=== PATIENT | male | born 1970 | race Caucasian/White ===

== ENCOUNTER 2017-11-13 19:05 | Emergency (ER) | payer MEDICAID, SELFPAY ==
[2017-11-13 19:06] VITALS: BP 142/105; PULSE 108; RESP 18; TEMP 37; O2SAT 95; BMI 28.8
--- NOTE | 2017-11-13 20:05 | US_ITS ---
STUDY: SCROTUM ULTRASOUND REASON FOR EXAM: Male, 47 years old. Right testicular pain TECHNIQUE: Ultrasound evaluation of the scrotum was performed with color Doppler and static wilson-scale imaging. COMPARISON: None. FINDINGS: RIGHT TESTICLE INTRATESTICULAR: There is a normal size of the right testicle. The right testicle measures 4.3 x 2.7 x 2.3 cm. There is a homogenous echotexture. There is normal arterial and normal venous vascularity. There is no demonstrated right testicular mass or cyst. EXTRATESTICULAR: The epididymis is normal in size. The epididymis head measures 1.2 cm. There is increased (hyperemic) vascularity of the epididymis. There is a well-defined cystic structure within the epididymis, without internal echoes, consistent with an epididymal cyst. There is a moderate size hydrocele. There is no demonstrated varicocele. There is no demonstrated extratesticular mass or cyst. LEFT TESTICLE INTRATESTICULAR: There is a normal size of the left testicle. The left testicle measures 3.8 x 2.6 x 2.3 cm. There is a homogenous echotexture. There is normal arterial and normal venous vascularity. There is no demonstrated left testicular mass or cyst. EXTRATESTICULAR: The epididymis is normal in size. The epididymis head measures 1.3 cm. There is normal vascularity of the epididymis. There is no demonstrated epididymal cystic structure. There is no demonstrated hydrocele. There is no demonstrated varicocele. There is no demonstrated extratesticular mass or cyst. US/Testicular with Arterial Flow IMPRESSION: No testicular mass or torsion. Moderate right hydrocele. Right epididymitis. Right epididymal head cyst. Left epididymal head cyst. Electronically Signed: Franck Rodriguez DO at 21:12 EST , Service support ,
[2017-11-13] MEDS: Ketorolac 60 MG/2 ML Vial IM (20:19)
[2017-11-13 20:34] LABS: Bacteria 0 SEEN /hpf (None Seen); Mucous, Urine 0 SEEN /hpf (<or=2+); Red Blood Cells-Urine 0 SEEN /hpf (0-5)
[2017-11-13 20:40] LABS: Color, Urine Yellow (Yellow); Glucose, Dipstick Normal (Normal); Ketone-Dipstick Negative (Negative); Leukocyte Esterase-Dipstick 25 /ul (Negative); Nitrite-Dipstick Negative (Negative); Occult Blood-Urine Negative /ul (Negative); Protein-Dipstick Negative (Negative); Urine Bilirubin Dipstick Negative (Negative); Urine Clarity Sl. Cloudy (Clear); Urine Urobilinogen 4 mg/dl (Normal)
[2017-11-13 20:49] LABS: Squamous Epithelial Cells - UA 0-5 SEEN /hpf (0-5); White Blood Cells 0-5 SEEN /hpf (0-5)
--- NOTE | 2017-11-13 21:43 | ED.VISSUMM ---
- ER Visit Summary Date of Service: 11/13/17 Chief Complaint: [Right testicle pain and swelling] History of Present Illness: The patient is a 47 M [presents to the emergency department with complaint of pain and swelling in his right testicle ?2 days. Patient denies any fever. Patient denies any dysuria. Patient denies any trauma.] Patient has not had similar episodes in the past. Physical Examination: [HEENT-PERRLA, EOMI. Cranial nerves II through XII grossly intact. TMs clear. Mucous membranes moist. No adenopathy. Cardiovascular-regular rate and rhythm without murmur or ectopy Lungs-clear to auscultation, chest wall stable without crepitus or subcu emphysema Abdomen-normoactive bowel sounds, soft, nontender, no rebound or rigidity, no peritoneal signs. exam-patient does have tenderness over the right epididymis. Patient does have swelling of the epididymis and suspect hydrocele. No cellulitis noted. Testicle itself is nontender. Extremities-intact ?4, normal range of motion, normal pulses, atraumatic] Test Results: [Urinalysis was normal. Ultrasound of the testicle obtained showed a right-sided hydrocele as well as right-sided epididymitis and epididymal cysts of the right and left epididymis.] Emergency Department Course and Treatment: She was medicated with Toradol, morphine, Cipro. [] Treatment Plan: [Patient will be started on Cipro and [place] for pain as well as naproxen. Patient will be referred to urology life science taxonomist.] Disposition: [Discharged to home in stable condition] Impression: [Epididymitis Right-sided hydrocele] This note was generated with [employer] dictation software. It may contain incorrect words, spelling, and punctuation that were not noted in review of the chart prior to signing ED Disposition - Plan for ED Patient: Chief Complaint: Male Pain/Injury Referrals: Abhijeet Cesar MD [Primary Care Provider] -
--- NOTE | 2017-11-13 21:45 | ED.DEP ---
ED Disposition - Plan for ED Patient: Chief Complaint: Male Pain/Injury Instructions: ED Epididymitis, ED Hydrocele Type Not Specified Prescriptions: Hydrocodone Bitart/Apap 5-325 [[place] 5/325] 1 - 2 tab PO Q4H PRN PRN 5 Days #20 tab PRN Reason: Pain Naproxen [Naprosyn] 500 mg PO BID PRN #20 tab Ciprofloxacin [Cipro] 500 mg PO BID #20 tab Referrals: Abhijeet Cesar MD [Primary Care Provider] - Fabian Lopez MD [STAFF PHYSICIAN] - 5-7 Days
--- NOTE | 2017-11-13 21:48 | DCINST.ED_ITS ---
ED Disposition - Plan for ED Patient: Chief Complaint: Male Pain/Injury Instructions: ED Epididymitis, ED Hydrocele Type Not Specified Prescriptions: Hydrocodone Bitart/Apap 5-325 [[place] 5/325] 1 - 2 tab PO Q4H PRN PRN 5 Days #20 tab PRN Reason: Pain Naproxen [Naprosyn] 500 mg PO BID PRN #20 tab Ciprofloxacin [Cipro] 500 mg PO BID #20 tab Referrals: Abhijeet Cesar MD [Primary Care Provider] - Fabian Lopez MD [STAFF PHYSICIAN] - 5-7 Days
[2017-11-13 22:01] VITALS: BP 139/93; PULSE 96; PULSE 97; RESP 18; O2SAT 96
[2017-11-13] MEDS: Ciprofloxacin 500 MG Tablet PO (22:04)
== END 2017-11-13 22:06 | disposition home or self-care (01) ==
PROVIDERS: Emergency Provider Emergency Medicine; Family Provider Internal Medicine; PCP Internal Medicine
DX: N45.1 Epididymitis (principal); N43.3 Hydrocele, unspecified; N50.3 Cyst of epididymis; Z72.0 Tobacco use; Z79.51 Long term (current) use of inhaled steroids
CPT/HCPCS: 76870; 81001; 93976; 96372; 99283

== ENCOUNTER 2018-03-05 22:01 | Emergency (ER) | payer MEDICAID, SELFPAY ==
[2018-03-05 22:03] VITALS: BP 124/69; PULSE 111; RESP 18; TEMP 37.1; O2SAT 97; BMI 29.1
--- NOTE | 2018-03-05 22:30 | ED.DCSUM_ITS ---
- ER Visit Summary Date of Service: 03/05/18 Chief Complaint: [Absess] History of Present Illness: The patient is a 47 M [resents the emergency department with multiple boils. 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 He works as a [employer] and has had multiple ibarra in his skin on the forearms he has small boils that are sore with no surrounding cellulitis. No fevers or chills. Tetanus is up-to-date. He is otherwise healthy. He is allergic to Bactrim.] Physical Examination: [] WN WD NAD PERRL EOMI MMM NECK supple and nontender, no masses RRR no murmur rub or gallop, no peripheral edema, symmetric radial pulses CTAB no respiratory distress ABDOMEN is soft and nontender, normal bowel sounds, no distension, no rebound or guarding SKIN small centimeter fluctuant mass on right neck with no surrounding cellulitis with superficial on palpation, small firm tender nodule on left chest with no surrounding cellulitis, small firm tender nodule on left anterior forearm with no surrounding cellulitis, multiple healing scab wounds on the upper extremities without evidence of superinfection Alert and Oriented x3, CN II-XII in tact, no motor or sensory deficits, gait normal No lymphadenopathy Test Results: [] Emergency Department Course and Treatment: [Wound culture was obtained. She was given doxycycline tetanus was updated. He will be given chlorhexidine skin wash and Bactroban for home. Is given precautions for which to return and encouraged to follow-up with the primary doctor] Procedure Note: Incision and drainage right neck boil And was cleansed with Betadine Skin anesthetized with 1 cc of lidocaine locally Incision made with 11 blade Purulence and blood Irrigated Bandage and wound care instructions given Incision and drainage left anterior chest boil skin cleansed with Betadine Skin anesthetized with 1 cc of lidocaine locally Stab incision made with 11 blade with bloody but no purulent return wound irrigated bandage applied Incision and drainage of left forearm boil Skin cleansed with Betadine Then anesthetized with 1 cc of lidocaine locally Stab incision made with an 11 blade Blood and purulent return Wound irrigated Treatment Plan: [] Disposition: [Discharge] Impression: Multiple boils] This note was generated with [employer] software. It may contain incorrect words, spelling, and punctuation that were not noted in review of the chart prior to signing ED Disposition - Plan for ED Patient: Chief Complaint: Abscess Referrals: Abhijeet Cesar MD [Primary Care Provider] -
[2018-03-05] MEDS: Doxycycline 100 MG CAPSULE PO (22:34)
--- NOTE | 2018-03-05 22:54 | ED.DEP ---
ED Disposition - Plan for ED Patient: Chief Complaint: Abscess Instructions: ED Abscess IandD Prescriptions: Chlorhexidine Gluconate [Antiseptic Skin Cleanser] 237 ml TP QWEEK #1 bottle Doxycycline Hyclate 100 mg PO BID #20 tablet Mupirocin [Bactroban] 1 applic TOPICAL TID 10 Days #1 tube Referrals: Abhijeet Cesar MD [Primary Care Provider] - 5-7 Days
[2018-03-05] MEDS: Diphth,Pertuss(Acell),Tet Vac 0.5 ML Vial IM (23:10)
[2018-03-05] MEDS: HYDROcodone Bitartrate/Apap 5/325 Tablet PO (23:10)
[2018-03-05 23:15] VITALS: PULSE 88; RESP 18
--- NOTE | 2018-03-09 20:15 | ED.RN ---
PT CALLED TO CHECK ON STATUS OF WOUND, DR. VO AWARE OF CULTURE REPORT, NO ANSWER WHEN CALLED.
== END 2018-03-05 23:43 | disposition home or self-care (01) ==
LOC: ED 22:49
PROVIDERS: Emergency Provider Emergency Medicine; Family Provider Internal Medicine; PCP Internal Medicine
DX: L02.12 Furuncle of neck (principal); L02.223 Furuncle of chest wall; L02.424 Furuncle of left upper limb; B96.89 Other specified bacterial agents as the cause of diseases classified elsewhere; Z86.14 Personal history of Methicillin resistant Staphylococcus aureus infection; Z72.0 Tobacco use
CPT/HCPCS: 10060; 87070; 87077; 87186; 87205; 90715; 99282

== ENCOUNTER 2018-04-29 02:22 | Emergency (ER) | payer MEDICAID, SELFPAY ==
[2018-04-29 02:23] VITALS: BP 127/72; PULSE 93; RESP 16; TEMP 36.4; O2SAT 95; BMI 29.7
--- NOTE | 2018-04-29 02:44 | ED.DCSUM_ITS ---
- ER Visit Summary Date of Service: 04/29/18 Chief Complaint: [] Stated 3 days ago he accidentally burned his little toe with grease from work. It splashed into his shoe. He does not want this to be Worker's Comp. He wanted to make sure that it was okay and not infected. History of Present Illness: The patient is a 47 M [] Physical Examination: [] Vital signs reviewed General: Well-nourished well-developed Head: Normocephalic atraumatic Eyes: Pupils equal round and reactive to light extraocular movements intact ENT: TMs clear no hemotympanum no trauma Neck: Nontender full range of motion Cardiovascular: Regular rate rhythm no murmurs normal S1-S2 Respiratory: No distress clear to auscultation bilaterally chest nontender Abdomen: Soft nontender nondistended normal bowel sounds no masses Back: Nontender no CVA tenderness Extremities: Top part of the left little toe has a superficial burn. It looks like it blistered and then opened and the skin is now gone. There is no infection. It is healing now by secondary intention Neuro alert oriented cranial nerves II through XII intact normal strength sensation reflexes Test Results: [] Emergency Department Course and Treatment: [] Patient's been using Bactroban ointment and will continue this. His wound was dressed. He was given a postop shoe. He will be given a short course of [place] for the pain. He will follow- up as an outpatient Treatment Plan: [] Disposition: [] Impression: [] Left little toe second-degree burn This note was generated with [employer] dictation software. It may contain incorrect words, spelling, and punctuation that were not noted in review of the chart prior to signing ED Disposition - Plan for ED Patient: Chief Complaint: Burn Referrals: Abhijeet Cesar MD [Primary Care Provider] -
[2018-04-29 03:03] VITALS: PULSE 91; RESP 20; O2SAT 99
--- NOTE | 2018-04-29 03:03 | ED.RN ---
THIS NURSE REVIEWED D/C INSTRUCTIONS WITH PT. PT VERBALIZED UNDERSTANDING OF INSTRUCTIONS. PT DENIES FURTHER NEEDS OR QUESTIONS AT THIS TIME. PT AMBULATES FROM ROOM ON OWN WITHOUT ASSISTANCE FROM STAFF
== END 2018-04-29 03:06 | disposition home or self-care (01) ==
PROVIDERS: Emergency Provider Emergency Medicine; Family Provider Internal Medicine; PCP Internal Medicine
DX: T25.232A Burn of second degree of left toe(s) (nail), initial encounter (principal); J45.909 Unspecified asthma, uncomplicated; Z79.51 Long term (current) use of inhaled steroids; X10.1XXA Contact with hot food, initial encounter; Y93.89 Activity, other specified; Y92.89 Other specified places as the place of occurrence of the external cause; Y99.0 Civilian activity done for income or pay
CPT/HCPCS: 99283

== ENCOUNTER 2019-06-24 17:42 | Emergency (ER) | payer OTHER, SELFPAY ==
[2019-06-24 17:42] VITALS: BMI 28.8
[2019-06-24 17:43] VITALS: BP 137/95; PULSE 110; RESP 18; TEMP 36.7; O2SAT 99; BMI 29.5
--- NOTE | 2019-06-24 18:00 | ED.DCSUM_ITS ---
History of Present Illness Chief Complaint: Burn Informant: Patient Onset: Today Mechanism/Context: Burn Quality of Pain: Aching, Burning, Throbbing Current Severity: Mild Maximum Severity: Severe Worsened by: If he removes from ice water Relieved by: Improves with ice water Associated Symptoms: Parasthesias. Negative for: Weakness, Loss of function, Inability to ambulate Narrative: Patient is a 48-year-old vcudc-ijny-xgyoisym male who presents with burn to his right hand and fingers. He immersed his hand accidentally in a bathtub hot grease, 360 ?F. He is a smoker. He denies history of peripheral arterial disease or diabetes. Tetanus Immunization: Unknown Prior similar symptoms: No Recent Illness/Hospitalization: No - Past Medical History (1) Nonspecific colitis Status: Acute (2) Esophageal reflux Status: Chronic (3) Asthma Status: Chronic Past Medical History - Allergies and Home Meds Allergies/Adverse Reactions: Allergies NUTS Allergy (Uncoded 07/01/18 08:33) Shortness of breath SEAFOOD Allergy (Uncoded 07/01/18 08:33) Shortness of breath Primary Care Physician: Umair Luciano MD [STAFF PHYSICIAN] - Prior records reviewed: Yes Surgical History: noncontributory, tonsillectomy Lives: Alone Smoking Status: Current every day smoker Alcohol: Rare Drugs: None - Family History Maternal Family History: Family History (Last Updated 07/01/18 @ 08:36 by Danielle Medrano) Father Prostate cancer Mother Asthma Grandmother Skin cancer Grandfather Colon cancer Family History: Reports: No pertinent history Paternal Family History: Family History (Last Updated 07/01/18 @ 08:36 by Danielle Medrano) Father Prostate cancer Mother Asthma Grandmother Skin cancer Grandfather Colon cancer Family History: Reports: No pertinent history Review of Systems General: Denies: Chills, Fever, Malaise, Sweats Cardiovascular: Denies: Chest pain, Palpitations Respiratory: Denies: Dyspnea, Cough, Dyspnea on exertion Musculoskeletal: Reports: Swelling, Extremity Pain. Denies: Myalgias, Arthralgias, Neck pain, Back pain, -, - Skin: Reports: Rash, Wounds, - - Differential burn left hand fingers and thumb Neurological: Reports: Parasthesia. Denies: Numbness Hematologic: Denies: Easy bruising, Easy bleeding Allergy: Denies: Uticaria, Swelling of the mouth Physical Exam Vital Signs/Narrative: Vital Signs Temp Pulse Resp BP Pulse Ox 06/24/19 17:43 98.1 F 110 H 18 137/95 H 99 Inital Vital Signs reviewed: Yes General: Well nourished, Well developed Head: Normocephalic, Atraumatic Eyes: Perrl, EOMI. Negative for: Pale conjunctiva, Scleral icterus, - Neck: Nontender, Full ROM Cardiovascular: Regular rate, Regular rhythm, No murmurs, Normal S1, Normal S2 Respiratory: No distress, CTA bilaterally, Chest nontender Skin: Normal color, Rash - Burn left thumb, all fingers and hand circumferential Neurological: Cranial nerves II-XII grossly intact, Normal Strength Psychological: Normal affect, Normal Mood - Glascow Coma Scale Eye Opening: Spontaneous Motor: Obeys Commands Verbal: Oriented Coma Scale Total: 15 Diagnostic/Tx/Re-eval - Medical Decision Making Patient with circumferential burn of his left hand and thumb and all fingers. Since this is a circumferential burn [facility] burn unit was contacted. Spoke with the intake nurse. She agrees patient needs seen. He will be transferred from ER to the burn unit. Tetanus was updated. He was medicated with pain medicine. Patient drove himself to the emerge department. He states his spouse and he has no one that can drive him. He was asked to contact coworker or someone to drive him to [facility] since he received opiate analgesia. He is being transported by private vehicle since the closest ambulance is 2.5 hours. And there is a patient that is more critically ill that needs to be transported before he does. ED Disposition - Plan for ED Patient: Disposition: [facility] Diagnosis: Burn of multiple fingers of left hand not including thumb Referrals: Umair Luciano MD [STAFF PHYSICIAN] -
[2019-06-24] MEDS: oxyCODONE 5 MG Tablet PO (18:12)
[2019-06-24] MEDS: Naproxen 500 MG Tablet PO (18:12)
[2019-06-24 18:35] VITALS: BP 155/91; PULSE 107; RESP 18; TEMP 36.7
== END 2019-06-24 18:45 | disposition designated cancer center or children's hospital (05) ==
PROVIDERS: Emergency Provider Emergency Medicine
DX: T23.061A Burn of unspecified degree of back of right hand, initial encounter (principal); T23.051A Burn of unspecified degree of right palm, initial encounter; T23.041A Burn of unspecified degree of multiple right fingers (nail), including thumb, initial encounter; Z23 Encounter for immunization; K21.9 Gastro-esophageal reflux disease without esophagitis; J45.909 Unspecified asthma, uncomplicated; X10.2XXA Contact with fats and cooking oils, initial encounter
CPT/HCPCS: 99283

== ENCOUNTER 2019-10-21 19:43 | Emergency (ER) | payer OTHER, SELFPAY ==
[2019-10-21 19:43] VITALS: BP 142/86; PULSE 103; RESP 18; TEMP 36.8; O2SAT 96; BMI 29.5
[2019-10-21 20:06] VITALS: O2SAT 94
--- NOTE | 2019-10-21 20:29 | ED.VISSUMM ---
- ER Visit Summary Date of Service: 10/21/19 Chief Complaint: Asthma exacerbation History of Present Illness: The patient is a 49 M who presents with an asthma exacerbation that began today. Patient states is a history of asthma but has been out of his medications for couple weeks. Patient states he recently changed jobs and changed insurance companies and is now able to see his primary care physician. Patient has not been able to get appointment with his primary care physician yet. Patient states that tonight while he was at work he became more short of breath and had more wheezing. Patient admits to a cough with some clear sputum. Patient admits to some rhinorrhea. Patient denies any fevers or chills. Patient denies any chest pain. Physical Examination: Vital signs are stable. Patient is afebrile. Patient is in no acute distress. Oral mucosa is pink and moist. Neck is supple. Trachea is midline. There is no JVD. It was regular rate and rhythm. Lungs showed diffuse expiratory wheezing. There is good respiratory effort noted. Abdomen is soft nontender. Cranial nerves II through XII are intact. There are no focal motor or sensory deficits noted. Extremities are intact. There is no calf tenderness or edema. Emergency Department Course and Treatment: Patient was given a DuoNeb aerosol here. Patient was given a prescription for albuterol inhaler as well as albuterol aerosols. Patient was instructed to follow-up with his primary care physician in 5 to 7 days. Patient understood and was agreeable with the plan. All questions were answered. Disposition: Discharge home Impression: Asthma exacerbation This note was generated with [employer] dictation software. It may contain incorrect words, spelling, and punctuation that were not noted in review of the chart prior to signing ED Disposition - Plan for ED Patient: Disposition: Home or Assisted Living Diagnosis: Asthma Instructions: ASTHMA, Acute (Adult) Prescriptions: Albuterol Aerosols [Ventolin Aerosols] 2.5 mg INHALATION Q4H PRN #25 vial Prescription Printed Albuterol Inhaler [Ventolin Hfa] 2 puff INHALATION Q4H PRN PRN #1 inhaler PRN Reason: Wheezing Prescription Printed Referrals: Care Physician,No Primary [Primary Care Provider] - Additional Instructions: Follow-up with your primary care physician in 3 to 5 days.
[2019-10-21 20:35] VITALS: PULSE 101; RESP 14
[2019-10-21] MEDS: Ipratropium/Albuterol Sulfate 3 ML AMPUL.NEB INHALATION (20:35)
[2019-10-21 20:47] VITALS: PULSE 101; RESP 16; O2SAT 95
== END 2019-10-21 20:53 | disposition home or self-care (01) ==
PROVIDERS: Emergency Provider Emergency Medicine
DX: J45.901 Unspecified asthma with (acute) exacerbation (principal); Z87.891 Personal history of nicotine dependence
CPT/HCPCS: 94640; 99282

== ENCOUNTER 2020-08-28 14:38 | Observation (INO) | payer BC, SELFPAY ==
[2020-08-28] VITALS (7 sets, daily range): BP systolic 117–126; BP diastolic 60–78; PULSE 84–103; RESP 14–20; TEMP 36.6–37.1; O2SAT 95–98; BMI 29.9; BMI 29.8; BMI 30.3
--- NOTE | 2020-08-28 14:49 | RAD_ITS ---
STUDY: X-RAY CHEST REASON FOR EXAM: Male, 49 years old. CHEST PAINS AND PRESSURE MEDIASTINUM PER PATIENT. TECHNIQUE: AP COMPARISON: 09/08/2017 FINDINGS: EKG leads project over the chest. The lungs are clear and expanded. There is no demonstrated pleural abnormality. Normal size heart. Normal mediastinum and tashi. Normal visualized pulmonary arteries. Normal visualized aortic arch and descending thoracic aorta. Normal visualized thoracic spine. Normal visualized ribs, clavicles, and shoulders. There is no demonstrated abnormality of the visualized soft tissue structures of the upper abdomen. RAD/Chest 1 View (Portable) IMPRESSION: Stable, nonacute portable x-ray examination of the chest. Electronically Signed: Tao Martinez MD ([place]) at 15:25 EST , Service support ,
--- NOTE | 2020-08-28 14:49 | EKG12_ITS ---
Test Reason : Blood Pressure : / mmHG Vent. Rate : 085 BPM Atrial Rate : 085 BPM P-R Int : 138 ms QRS Dur : 076 ms QT Int : 326 ms P-R-T Axes : 029 -24 029 degrees QTc Int : 387 ms Normal sinus rhythm Normal ECG When compared with ECG of 08-SEP-2017 11:19, No significant change was found Confirmed by PETER BRITO, MAYO ([id number]), assignment desk editor TOM QUINTEROS ([id number]) on 08/30/2020 9:34:16 AM Referred By: MICHELLE Confirmed By:MAYO GREEN MD
[2020-08-28 14:57] LABS: Absolute Lymphocyte Count 2.48 X10^3/uL (0.83-4.51); Absolute Neutrophil Count 8.5 X10^3/uL (2.0-7.7); Basophil# 0.05 X10^3/uL; Basophil% 0.4 % (0-1); Eosinophil# 0.23 X10^3/uL; Eosinophils% 1.9 % (0-5); Hematocrit 45.7 % (40-54); Hemoglobin 15.2 g/dL (13.0-16.5); Lymphocyte # 2.48 X10^3/ul (4.0); Lymphocyte % 20.5 % (19-41); Mean Corp Hgb Conc 33.3 g/dL (32-36); Mean Corpuscular Hgb 31.3 pg (27.0-32.0); Mean Corpuscular Volume 94.2 fL (80-94); Mean Platelet Vol. 8.5 fl (6.2-12.0); Monocyte# 0.72 X10^3/uL; Monocyte% 5.9 % (0-10); NRBC Flagged by Analyzer 0 % (0-5); Neutrophil # 8.51 X10^3/uL (2.7-7.7); Neutrophil % 70.3 % (47-70); Platelet Count 352 K/mm3 (150-450); RBC Distribution Width SD 45.4 fl (35.1-43.9); Red Blood Count 4.85 M/mm3 (4.6-6.2); White Blood Count 12.1 K/mm3 (4.4-11.0)
[2020-08-28 15:13] LABS: Prothrombin Time (Protime)PT. 12.5 SECONDS (11.7-14.9)
[2020-08-28 15:14] LABS: Anion Gap 6 (5-15); BUN 9 mg/dL (7-18); BUN/Creat Ratio 8.7 RATIO (10-20); Calcium,Total 8.4 mg/dL (8.5-10.1); Chloride 106 mmol/L (98-107); Creatinine, Serum 1.04 mg/dL (0.70-1.30); EST Glomerular Filtration Rate 80 mL/min (>60); Est Glom Filt Rate - Afr Amer 97 mL/min (>60); Estimated Creatinine Clearance 85.92 ml/min; Glucose 161 mg/dL (74-106); Potassium 3.4 mmol/L (3.5-5.1); Sodium Level 139 mmol/L (136-145)
--- NOTE | 2020-08-28 15:26 | ED.VISSUMM ---
- ER Visit Summary Date of Service: 08/28/20 Chief Complaint: Lower sternal chest pain History of Present Illness: The patient is a 49 M past medical history of asthma and prior pancreatitis. States he had a negative stress test several years ago. Never had a heart catheterization. Patient states that chest pain for the last 4 days or so. Denies any known cardiac history his father reportedly had CT around age 38. Patient is a smoker smokes 1 to 1/2 packs of cigarettes a day. States the last several days he is at a weight on his lower sternum. Its been there most of the time but does seem to come and go. He said he was having sex today with his and it got worse he broke out in a sweat get short of breath. He is never had a DVT or PE. He he did recently at the end of July drive to and from [place]. He denies any calf pain or swelling. He denies any pleuritic nature of pain. No hemoptysis. Patient states he also uses erectile dysfunction meds used them in the last 24 hours he is not a candidate at this time for nitroglycerin. Physical Examination: Middle-aged male vital signs stable afebrile. Pulse ox 98% on room air no signs of hypoxia. H EENT exam unremarkable. Neck nontender no JVD. No lymphadenopathy. Lungs few scattered expiratory wheezes no rales or rhonchi. Equal symmetrical. Heart regular rhythm no murmur rate about 100. Chest wall completely nontender. Pains in the lower sternal region lower chest region is completely nonreproducible. There is no signs of trauma. Abdomen soft nontender normal bowel sounds no peritoneal signs. Both the epigastric and right upper quadrant completely nontender. Normal bowel sounds. Extremities moves all 4. Calves are nontender without edema or cords. Neurologically is awake and alert with no focal motor deficits. Test Results: Patient undergo cardiac work-up. Portable 1 view chest x-ray interpreted by myself shows no acute abnormality. Normal cardiac silhouette mediastinum. Unremarkable lung mcpherson. No infiltrates. EKG sinus tachycardia rate of 104 with no acute signs of CT or ischemia. CBC white count 12.1 hemoglobin 15 no bands chemistries unremarkable normal creatinine and gap PT/INR 12 and 1. Troponin normal. D-dimer normal. Lipase elevated at 1,438 consistent with acute pancreatitis. Emergency Department Course and Treatment: Lower sternal nonreproducible chest pain. Risk factors due to family history, his age and smoking history. No undergo cardiac work-up. Receive aspirin. Also consider pancreatitis with drink is less likely it is not reproducible. Consider PE due to his recent travel but clinically does not sound like a PE. I offered the patient something for pain the hospitalist when the patient received Mylanta. Treatment Plan: Repeat exam patient is doing well. I spoken to the hospitalist is down to evaluate the patient for admission. Disposition: Admission Impression: Acute lower sternal chest pain uncertain etiology Acute pancreatitis History of smoking This note was generated with [email or web address] dictation software. It may contain incorrect words, spelling, and punctuation that were not noted in review of the chart prior to signing ED Disposition - Plan for ED Patient: Referrals: NOT,DEFINED [NON-STAFF] -
[2020-08-28 15:45] LABS: D-Dimer Quantitative (DVT/PE) 0.31 FEU/ug/m (0.27-0.49)
[2020-08-28 15:49] LABS: Lipase 1438 U/L (73-393)
[2020-08-28] MEDS: Aspirin 325 MG Tablet PO (15:55)
[2020-08-28] MEDS: Mag Hydrox/Al Hydrox/Simeth 30 ML UDC PO (16:11)
--- NOTE | 2020-08-28 17:03 | HP.PCM_ITS ---
Problem List (1) Atypical chest pain Status: Acute (2) Acute pancreatitis Status: Acute (3) Nonspecific colitis Status: Acute (4) History of MRSA infection Status: Chronic (5) Esophageal reflux Status: Chronic (6) Asthma Status: Chronic History of Present Illness Date of Admission: 08/28/20 Chief Complaint: Chest pressure ongoing for 3 days The patient is a 49 year old M with no coronary artery disease but with history of asthma came to ED with chest pressure ongoing for 3 days. Patient states this chest pressure gets worse on walking up stairs or exertion. It was 4-6/10 intensity but got worse after he had sex with his girlfriend that brought him to the ER. He said he was short of breath, dressed with sweats but no dizzy or lightheaded. He describes chest pressure, heaviness 10/10 intensity localized in midsternal without radiation, numbness tingling in arm or fingers. In ED work-up, patient found mild leukocytosis 12.1 thousand, neutrophils 70%, K3.4, glucose 161, calcium 8.4 and serum lipase 1438. Patient was prior admi tted in October 2014 for C. difficile colitis. Twelve-lead EKG done in the ER shows sinus tachycardia at 104 bpm with LAD. First troponin negative. Denies any previous history of gallstone, cholecy stitis or pancreatitis. Patient is not a heavy alcohol drinker and admittedly last drank about a bottle of beer on last . Past Medical History Past Medical History (Chronic Problems): Chronic Problems (Last Reviewed 07/01/18 @ 08:35 by Danielle Medrano) History of MRSA infection (Chronic) Esophageal reflux (Chronic) Asthma (Chronic) Medical History: Medical History (Last Reviewed 07/01/18 @ 08:35 by Danielle Medrano) Asthma J45.909 Allergies NUTS Allergy (Uncoded 08/28/20 14:45) Angioedema SEAFOOD Allergy (Uncoded 08/28/20 14:45) Angioedema Home Medications: Ambulatory Orders Medication Instructions Recorded Albuterol Aerosols [Ventolin 2.5 mg INHALATION Q4H PRN #25 vial 10/21/19 Aerosols] Albuterol Inhaler [Ventolin Hfa] 2 puff INHALATION Q4H PRN PRN #1 10/21/19 inhaler Surgical History: noncontributory, tonsillectomy Smoking Status: Current every day smoker Tobacco Use: Cigarettes - *Family History Maternal Family History: Family History (Last Updated 07/01/18 @ 08:36 by Danielle Medrano) Father Prostate cancer Mother Asthma Grandmother Skin cancer Grandfather Colon cancer History Items: No pertinent history Paternal Family History: Family History (Last Updated 07/01/18 @ 08:36 by Danielle Medrano) Father Prostate cancer Mother Asthma Grandmother Skin cancer Grandfather Colon cancer History Items: No pertinent history, - - Her mother had brain aneurysm and she of it Review of Systems Constitutional: Reports: Malaise, Weakness, Fatigue. Denies: Chills, Fever HEENT: Denies: Head Aches, Sinus Congestion, Sinus Drainage Cardiovascular: Reports: Chest Pressure, Chest Tightness. Denies: Chest Pain, Palpitations Respiratory: Denies: Cough, Shortness of breath at rest, Sputum production Gastrointestinal: Reports: Abdominal Pain, Nausea, Vomiting, - - Patient is nauseated and had little, small amount vomiting, gastric content. Genitourinary: Denies: Dysuria, Frequency Musculoskeletal: Denies: Joint Pain, Joint Tenderness Skin: Denies: Rash, Wounds Neurological: Denies: Balance problems, Focal weakness, Numbness, Tingling Psychiatric: Reports: Anxiety. Denies: Depression, Homicidal Ideations, Suicidal Ideations Hematologic/ Lymphatic: Denies: Easy Bruising, Easy Bleeding VTE Information - Inpt Only VTE Present on Admission: No VTE Mechan Device Prophylaxis: None VTE Pharm Prophylaxis ordered?: Yes Patient Problems: Active and Suspected Problems (Last Reviewed 07/01/18 @ 08:35 by Danielle Medrano) Atypical chest pain (Acute) Acute pancreatitis (Acute) Nonspecific colitis (Acute) Objective: Physical exam General: Alert, Oriented x3, Cooperative HEENT: Atraumatic, PERRLA, EOMI, Normocephalic Oral: No Gingival or Mucosal Lesions/ Ulcerations Neck: Supple, No JVD, Negative Carotid Bruits Lungs: Air entry diminished in bilateral lung bases. No crepitation/rhonchi Cardiovascular: Regular rate, Regular Rhythm, Normal S1, Normal S2, No murmurs Abdomen: Soft, mild tenderness in epigastrium. Liver not enlarged. Spleen not palpable. Nondistended bowel Sounds Present. : No renal angle tenderness. No suprapubic tenderness. Extremities: No edema, Capillary Refill Less than 3 Seconds Skin: No rashes, No breakdown Musculoskeletal: No Tenderness to Palpation of Joints or Extremities Neurological: Cranial nerves II-XII grossly intact, Deep Tendon Reflexes 2+/4 and Symmetrical, Neuro grossly intact Psych/Mental Status: Normal Affect, Appropriate. - Physical Exam Vitals/I&O's: Vital Signs Temp Pulse Resp BP Pulse Ox 98.1 F 99 14 117/76 96 08/28/20 16:11 08/28/20 16:11 08/28/20 16:11 08/28/20 16:11 08/28/20 16:11 Oxygen Delivery Method Room Air Weight: 206 lb 2.115 oz Body Mass Index (BMI) 29.9 Laboratory Results 08/28/20 14:43: WBC 12.1 H, RBC 4.85, Hgb 15.2, Hct 45.7, MCV 94.2 H, MCH 31.3, MCHC 33.3, RDW Std Deviation 45.4 H, RDW Coeff of Sumit 13.0, Plt Count 352, MPV 8.5, Immature Gran % (Auto) 1.000 H, Neut % (Auto) 70.3 H, Lymph % (Auto) 20.5, [place] % (Auto) 5.9, Eos % (Auto) 1.9, Baso % (Auto) 0.4, Absolute Neuts (auto) 8.5 H, Absolute Lymphs (auto) 2.48, Nucleated RBC % 0 08/28/20 14:43: PT 12.5, INR 1.0 08/28/20 14:43: Sodium 139, Potassium 3.4 L, Chloride 106, Carbon Dioxide 27.0, Anion Gap 6, BUN 9, Creatinine 1.04, Estim Creat Clear Calc 85.92, Est GFR (MDRD) Af Amer 97, Est GFR (MDRD) Non-Af 80, BUN/Creatinine Ratio 8.7 L, Glucose 161 H, Calcium 8.4 L, Troponin I < 0.015 08/28/20 14:43: D-Dimer Quant (PE/DVT) 0.31 08/28/20 14:43: Lipase 1438 H Assessment/Plan All Active Problems (Last Reviewed 07/01/18 @ 08:35 by Danielle Zimmerly) Atypical chest pain (Acute) Acute pancreatitis (Acute) Nonspecific colitis (Acute) The patient is a 49 year old M with no coronary artery disease but with history of asthma came to ED with chest pressure ongoing for 3 days. Patient serum lipase elevated. 1. Atypical presentation of acute pancreatitis with chest pressure: Patient is being admitted in PCU. IV fluid Ringer lactate at 200 mL/h. Monitor intake and output. Liver enzymes ordered. Right upper quadrant sonogram tomorrow a.m. Protonix 40 mg IV every 12 hourly. 2. Chest pressure with suspicion of unstable angina: Patient states chest pain worsening with exertion and sex. Serial troponin enzymes. 2D echo tomorrow a.m. Repeat EKG. His brother and sister has cardiac murmur. Nitrate is contraindicated as the patient took PDE inhibitor today. 3. Asthma, chronic stable asthma: Patient on albuterol inhaler at home. DuoNeb every 4 hourly as needed for shortness of breath. 4. Hyperglycemia: Patient does not carry diagnosis of diabetes mellitus. A1c tomorrow a.m. glucose 161 in BMP. 5 other comorbidities: GERD, ED on PDE 5 inhibitor, mild obesity: Home medication reconciliation done. VTE prophylaxis: On Lovenox 40 mg daily Clinical Impression(s) from Imaging Studies Chest X-Ray 08/28/20 14:49 IMPRESSION: Stable, nonacute portable x-ray examination of the chest. Laboratory Results 08/28/20 14:43: WBC 12.1 H, RBC 4.85, Hgb 15.2, Hct 45.7, MCV 94.2 H, MCH 31.3, MCHC 33.3, RDW Std Deviation 45.4 H, RDW Coeff of Sumit 13.0, Plt Count 352, MPV 8.5, Immature Gran % (Auto) 1.000 H, Neut % (Auto) 70.3 H, Lymph % (Auto) 20.5, [place] % (Auto) 5.9, Eos % (Auto) 1.9, Baso % (Auto) 0.4, Absolute Neuts (auto) 8.5 H, Absolute Lymphs (auto) 2.48, Nucleated RBC % 0 08/28/20 14:43: PT 12.5, INR 1.0 08/28/20 14:43: Sodium 139, Potassium 3.4 L, Chloride 106, Carbon Dioxide 27.0, Anion Gap 6, BUN 9, Creatinine 1.04, Estim Creat Clear Calc 85.92, Est GFR (MDRD) Af Amer 97, Est GFR (MDRD) Non-Af 80, BUN/Creatinine Ratio 8.7 L, Glucose 161 H, Calcium 8.4 L, Troponin I < 0.015 08/28/20 14:43: D-Dimer Quant (PE/DVT) 0.31 08/28/20 14:43: Lipase 1438 H 08/28/20 14:43: Total Bilirubin Pending, Direct Bilirubin Pending, AST Pending, ALT Pending, Alkaline Phosphatase Pending, Total Protein Pending, Albumin Pending 08/28/20 14:43: Magnesium Pending Inpatient E&M: [id number] Init Hosp L3
--- NOTE | 2020-08-28 17:13 | EKG12_ITS ---
Test Reason : CP Blood Pressure : / mmHG Vent. Rate : 104 BPM Atrial Rate : 104 BPM P-R Int : 140 ms QRS Dur : 072 ms QT Int : 310 ms P-R-T Axes : 061 -44 042 degrees QTc Int : 407 ms Sinus tachycardia Left axis deviation Abnormal ECG Confirmed by PETER BRITO, MAYO ([id number]), news videotape editor SURAJ CLEMONS ([id number]) on 08/31/2020 10:34:31 AM Referred By: BON/BONNY Confirmed By:MAYO GREEN MD
[2020-08-28] MEDS: Lactated Ringers 1,000 ML 200 ML IV ×2 (17:34→23:48)
[2020-08-28 17:40] LABS: Magnesium 1.7 mg/dL (1.6-2.6)
[2020-08-28 17:57] LABS: AST(SGOT) 16 U/L (15-37); Alanine Aminotransfer ALT/SGPT 26 U/L (16-61); Albumin, Serum 3.4 g/dL (3.2-5.0); Alkaline Phosphatase 82 U/L (45-117); Bilirubin, Direct 0.15 mg/dL (0.00-0.30); Protein, Total 6.4 g/dL (6.4-8.2)
[2020-08-28] MEDS: Morphine 2 MG/ML Syringe IV ×2 (18:53→23:05)
[2020-08-28] MEDS: Enoxaparin 40 MG/0.4 ML Syringe SC (18:53)
[2020-08-28] MEDS: HYDROmorphone 1 MG/ML Syringe IV (20:29)
[2020-08-28] MEDS: Potassium Chloride 10mEq/100mL 10 MEQ/100 ML IV.SOLN. 100 MEQ IV BOLUS ×2 (20:37→21:44)
[2020-08-29] VITALS (8 sets, daily range): BP systolic 113–140; BP diastolic 62–82; PULSE 76–86; RESP 14–18; TEMP 36.6–36.7; O2SAT 92–98
[2020-08-29] MEDS: HYDROmorphone 1 MG/ML Syringe IV ×4 (01:02→21:39)
[2020-08-29] MEDS: 0.9% Saline Lock 10 ML Syringe IV ×5 (01:02→21:39)
[2020-08-29] MEDS: Morphine 2 MG/ML Syringe IV ×2 (04:25→09:36)
[2020-08-29] MEDS: Acetaminophen 325 MG Tablet 650 MG PO ×2 (04:25→17:13)
[2020-08-29] MEDS: Lactated Ringers 1,000 ML 200 ML IV (04:28)
[2020-08-29 05:32] LABS: Absolute Lymphocyte Count 3.56 X10^3/uL (0.83-4.51); Absolute Neutrophil Count 5.5 X10^3/uL (2.0-7.7); Basophil# 0.04 X10^3/uL; Basophil% 0.4 % (0-1); Eosinophil# 0.34 X10^3/uL; Eosinophils% 3.4 % (0-5); Hematocrit 41.2 % (40-54); Hemoglobin 13.4 g/dL (13.0-16.5); Lymphocyte # 3.56 X10^3/ul (4.0); Lymphocyte % 35.3 % (19-41); Mean Corp Hgb Conc 32.5 g/dL (32-36); Mean Corpuscular Hgb 30.9 pg (27.0-32.0); Mean Corpuscular Volume 95.2 fL (80-94); Mean Platelet Vol. 8.8 fl (6.2-12.0); Monocyte# 0.62 X10^3/uL; Monocyte% 6.2 % (0-10); NRBC Flagged by Analyzer 0 % (0-5); Neutrophil # 5.45 X10^3/uL (2.7-7.7); Platelet Count 300 K/mm3 (150-450); RBC Distribution Width CV 13.1 % (11.6-14.6); Red Blood Count 4.33 M/mm3 (4.6-6.2); White Blood Count 10.1 K/mm3 (4.4-11.0)
--- NOTE | 2020-08-29 05:55 | US_ITS ---
STUDY: ABDOMINAL ULTRASOUND - RIGHT UPPER QUADRANT REASON FOR VISIT: Male, 49 years old CHEST PAIN- PANCREATITIS TECHNIQUE: Ultrasound evaluation of the right upper quadrant was performed with real-time and static wilson-scale imaging. TECHNICAL QUALITY: Adequate. COMPARISON: None. FINDINGS: Liver: The liver measures 20 cm. There is increased echogenicity of the liver. The bile ducts are within normal limits. There is hepatic color flow. The direction of portal flow is hepatopetal. There is no demonstrated mass lesion. Gallbladder: Normal distended gallbladder. The gallbladder wall measures 2.9 mm. There is a negative sonographic Busby''s sign. There is no pericholecystic fluid. There are no gallstones. Common Bile Duct (C.B.D.): The common bile duct measures 6 mm. Pancreas: There is increased echogenicity of the pancreas. There is no demonstrated pancreatic mass or cyst. Right Kidney: Normal size of the right kidney. The right kidney measures 10.9 x 4.6 x 5.0 cm. Normal renal cortex. The right cortex measures 1.2 cm. There is no demonstrated renal mass or cyst. There is no right hydronephrosis. US/Abdomen Limited IMPRESSION: 1. No gallstones, cholecystitis or biliary obstruction. 2. Hepatomegaly with increased echogenicity of the liver suggesting hepatic steatosis. 3. Fatty replacement of the pancreas. Electronically Signed: Tao Martinez MD (Brooks) at 8:52 EST , Service support ,
--- NOTE | 2020-08-29 05:55 | ECHOD_ITS ---
Reason For Study: CHEST PRESSURE Procedure This was a 2D Doppler, Color Flow transthoracic echocardiogram. Exam performed portable in patient room. Left Ventricle Normal LV size. Left ventricular systolic function is normal. The estimated ejection fraction is 55 %. Normal diastology for age. No regional wall motion abnormalities noted. Aortic Valve Trisinus/trileaflet aortic valve. Mild (1+) aortic valve insufficiency. Pulmonic Valve Normal pulmonic valve. Trivial pulmonic valve insufficiency. Great Vessels Normal aortic root. The pulmonary artery is normal size. Normal inferior vena cava. Pericardium/Pleural No pericardial effusion. MMode/2D Measurements & Calculations LVIDd: 4.6 cm IVSd: 0.86 cm Ao root diam: 2.8 cm LVIDs: 3.3 cm LVPWd: 0.78 cm RVDd: 3.8 cm FS: 29.0 % LAV(MOD-bp): 38.3 ml SV(MOD-sp4): 51.0 ml LVAd ap4: 31.8 cm2 LAV(MOD-bp) Indexed: 18.5 ml/m2 EDV(MOD-sp4): 91.0 ml LAV(MOD-sp2): 30.4 ml EDV(sp4-el): 94.2 ml LAV(MOD-sp4): 40.8 ml LVAs ap4: 18.6 cm2 ESV(MOD-sp4): 40.0 ml ESV(sp4-el): 39.1 ml EF(MOD-sp4): 56.1 % EF(sp4-el): 58.5 % SV(sp4-el): 55.1 ml LA A4 area: 16.5 cm2 LA dimension(2D): 3.8 cm RA A4 area: 12.5 cm2 Time Measurements MV dec time: 0.23 sec Doppler Measurements & Calculations MV E max parrish: 84.2 cm/sec Lat Peak E' Parrish: 13.0 cm/sec Med Peak E' Parrish: 10.8 cm/sec MV A max parrish: 71.4 cm/sec E/E' lat: 6.5 E/E' med: 7.8 MV E/A: 1.2 Ao V2 max: 152.0 cm/sec AI max parrish: 368.4 cm/sec LV V1 max: 120.7 cm/sec Ao max P.2 mmHg AI max P.3 mmHg LV V1 max P.8 mmHg AI dec slope: 216.2 cm/sec2 AI P1/2t: 499.1 msec PA V2 max: 118.7 cm/sec Interpretation Summary Normal LV size. Left ventricular systolic function is normal. The estimated ejection fraction is 55 %. Normal diastology for age. Mild (1+) aortic valve insufficiency. Ordering Physician: Pedro Bailey Referring Physician: MALENA GONSALVES Performed By: Ashley Harris RDCS
[2020-08-29 06:04] LABS: AST(SGOT) 12 U/L (15-37); Alanine Aminotransfer ALT/SGPT 22 U/L (16-61); Albumin, Serum 2.8 g/dL (3.2-5.0); Alkaline Phosphatase 67 U/L (45-117); Anion Gap 4 (5-15); BUN 7 mg/dL (7-18); BUN/Creat Ratio 8.8 RATIO (10-20); Bilirubin, Direct 0.18 mg/dL (0.00-0.30); Calcium,Total 8.1 mg/dL (8.5-10.1); Chloride 107 mmol/L (98-107); Cholesterol 146 mg/dL (200); EST Glomerular Filtration Rate 109 mL/min (>60); Est Glom Filt Rate - Afr Amer 132 mL/min (>60); Globulin 2.9 g/dL (2.2-4.2); Glucose 97 mg/dL (74-106); High Density Lipoprotein 30 mg/dL; Potassium 3.7 mmol/L (3.5-5.1); Protein, Total 5.7 g/dL (6.4-8.2); Sodium Level 138 mmol/L (136-145); Thyroid Stim Hormone (TSH) 6.17 uIU/mL (0.358-3.74); Triglycerides 144 mg/dL; Very Low Density Lipoprotein 29 mg/dL (5-40)
[2020-08-29 08:04] LABS: T4 Free Direct 1.11 ng/dL (0.76-1.46)
[2020-08-29] MEDS: Aspirin E.C. 81 MG Tablet PO (09:23)
[2020-08-29] MEDS: Enoxaparin 40 MG/0.4 ML Syringe SC (09:23)
--- NOTE | 2020-08-29 10:58 | PCM.PN.HOSP ---
Patient Problems: Active and Suspected Problems (Last Reviewed 07/01/18 @ 08:35 by Danielle Medrano) Atypical chest pain (Acute) Acute pancreatitis (Acute) Nonspecific colitis (Acute) Reason for Visit: Follow-up for chest pressure and acute pancreatitis Objective: Patient is still complaining of chest pressure patient is still complaining of chest pressure and is demanding morphine and Dilaudid every 2 hours. Location of pain lower sternal. Denies right upper quadrant abdominal pain. No back pain. Physical exam General: Alert, Oriented x3, Cooperative HEENT: Atraumatic, PERRLA, EOMI, Normocephalic Oral: No Gingival or Mucosal Lesions/ Ulcerations Neck: Supple, No JVD, Negative Carotid Bruits Lungs: Air entry diminished in bilateral lung bases. No crepitation/rhonchi Cardiovascular: Regular rate, Regular Rhythm, Normal S1, Normal S2, early diastolic murmur over aortic area. Abdomen: No epigastric or right upper quadrant tenderness. Bowel Sounds Present, Soft, Non-Distended. No palpable mass : No renal angle tenderness. No suprapubic tenderness. Extremities: No edema, Capillary Refill Less than 3 Seconds Skin: No rashes, No breakdown Musculoskeletal: No Tenderness to Palpation of Joints or Extremities Neurological: Cranial nerves II-XII grossly intact, Deep Tendon Reflexes 2+/4 and Symmetrical, Neuro grossly intact Psych/Mental Status: Normal Affect, Appropriate. Vitals/I&O's: Vital Signs Temp Pulse Resp BP Pulse Ox 97.8 F 76 14 113/64 98 08/29/20 09:27 08/29/20 09:27 08/29/20 09:27 08/29/20 09:27 08/29/20 09:27 Oxygen Delivery Method Room Air Weight: 201 lb 15.095 oz Body Mass Index (BMI) 29.8 Intake and Output for Last 24 Hours 08/27/20 08/28/20 08/29/20 23:59 23:59 23:59 Intake Total 1310 / 1310 1623.33 / 1623.33 Output Total 900 / 900 Balance 1310 / 860 723.33 / 723.33 Laboratory Results 08/28/20 14:43: WBC 12.1 H, RBC 4.85, Hgb 15.2, Hct 45.7, MCV 94.2 H, MCH 31.3, MCHC 33.3, RDW Std Deviation 45.4 H, RDW Coeff of Sumit 13.0, Plt Count 352, MPV 8.5, Immature Gran % (Auto) 1.000 H, Neut % (Auto) 70.3 H, Lymph % (Auto) 20.5, [place] % (Auto) 5.9, Eos % (Auto) 1.9, Baso % (Auto) 0.4, Absolute Neuts (auto) 8.5 H, Absolute Lymphs (auto) 2.48, Nucleated RBC % 0 08/28/20 14:43: PT 12.5, INR 1.0 08/28/20 14:43: Sodium 139, Potassium 3.4 L, Chloride 106, Carbon Dioxide 27.0, Anion Gap 6, BUN 9, Creatinine 1.04, Estim Creat Clear Calc 85.92, Est GFR (MDRD) Af Amer 97, Est GFR (MDRD) Non-Af 80, BUN/Creatinine Ratio 8.7 L, Glucose 161 H, Calcium 8.4 L, Troponin I < 0.015 08/28/20 14:43: D-Dimer Quant (PE/DVT) 0.31 08/28/20 14:43: Lipase 1438 H 08/28/20 14:43: Total Bilirubin 0.50, Direct Bilirubin 0.15, AST 16, ALT 26, Alkaline Phosphatase 82, Total Protein 6.4, Albumin 3.4, Globulin 3.0 08/28/20 14:43: Magnesium 1.7 08/28/20 18:02: Troponin I < 0.015 08/28/20 20:13: Troponin I < 0.015 08/29/20 04:50: WBC 10.1, RBC 4.33 L, Hgb 13.4, Hct 41.2, MCV 95.2 H, MCH 30.9, MCHC 32.5, RDW Std Deviation 46.0 H, RDW Coeff of Sumit 13.1, Plt Count 300, MPV 8.8, Immature Gran % (Auto) 0.700, Neut % (Auto) 54.0, Lymph % (Auto) 35.3, [place] % (Auto) 6.2, Eos % (Auto) 3.4, Baso % (Auto) 0.4, Absolute Neuts (auto) 5.5, Absolute Lymphs (auto) 3.56, Nucleated RBC % 0 08/29/20 04:50: Sodium 138, Potassium 3.7, Chloride 107, Carbon Dioxide 27.0, Anion Gap 4 L, BUN 7, Creatinine 0.80, Estim Creat Clear Calc 111.70, Est GFR (MDRD) Af Amer 132, Est GFR (MDRD) Non-Af 109, BUN/Creatinine Ratio 8.8 L, Glucose 97, Calcium 8.1 L, Total Bilirubin 0.60, Direct Bilirubin 0.18, AST 12 L, ALT 22, Alkaline Phosphatase 67, Total Protein 5.7 L, Albumin 2.8 L, Globulin 2.9, Triglycerides 144, Cholesterol 146, LDL Cholesterol 87, VLDL Cholesterol 29, HDL Cholesterol 30 L, TSH 6.17 H 08/29/20 04:50: Free T4 1.11 Current Medications Acetaminophen (Acetaminophen 325 Mg Tablet) 650 mg PO Q6H PRN PRN PRN Reason: Pain Score 1-10/Temp > 100.7 F Last Admin: 08/29/20 04:25 Dose: 650 mg Documented by: Al Hydroxide/Mg Hydroxide (Mag Hydrox/Al Hydrox/Simeth 30 Ml Udc) 30 ml PO Q6H PRN PRN PRN Reason: Gastric Burning Albuterol Sulfate (Albuterol 2.5 Mg/3 Ml Vial.Neb.) 2.5 mg INHALATION Q2H PRN PRN PRN Reason: SOB/Wheezing Aspirin (Aspirin E.C. 81 Mg Tablet) 81 mg PO DAILY@0800 [facility] Last Admin: 08/29/20 09:23 Dose: 81 mg Documented by: Enoxaparin Sodium (Enoxaparin 40 Mg/0.4 Ml Syringe) 40 mg SC DAILY [facility] Last Admin: 08/29/20 09:23 Dose: 40 mg Documented by: Hydromorphone HCl (Hydromorphone 1 Mg/Ml Syringe) 1 mg IV Q4H PRN PRN PRN Reason: Pain Score 6-10 Last Admin: 08/29/20 06:01 Dose: 1 mg Documented by: Pantoprazole Sodium 40 mg/ (Sodium Chloride) 110 mls @ 330 mls/hr IV Q12 [facility] Last Admin: 08/29/20 09:22 Dose: 330 mls/hr Documented by: Sodium Chloride () 250 mls @ 15 mls/hr IV .[id number] PRN PRN Reason: Saline Flush Sodium Chloride () 250 mls @ 15 mls/hr IV .[id number] PRN PRN Reason: Additional IVPB Infusion Morphine Sulfate (Morphine 2 Mg/Ml Syringe) 2 mg IV Q3H PRN PRN PRN Reason: Pain Score 4-5 Last Admin: 08/29/20 09:36 Dose: 2 mg Documented by: Nicotine (Nicotine 21 Mg Patch) 21 mg TRANSDERM. DAILY RU Last Admin: 08/29/20 09:24 Dose: 21 mg Documented by: Ondansetron HCl (Ondansetron 4 Mg/2 Ml Vial) 4 mg IV Q8H PRN PRN PRN Reason: NAUSEA/VOMITING Prochlorperazine Edisylate (Prochlorperazine 10 Mg/2 Ml Vial) 5 mg IV Q4H PRN PRN PRN Reason: Breakthrough Nausea/Vomiting Sodium Chloride (0.9% Saline Lock 10 Ml Syringe) 10 - 40 ml IV UD PRN PRN Reason: SALINE FLUSH Last Admin: 08/29/20 09:36 Dose: 20 ml Documented by: STROKE Vital Signs/Narrative: Vital Signs Temp Pulse Resp BP Pulse Ox 08/29/20 09:27 97.8 F 76 14 113/64 98 08/29/20 07:13 85 Medical Necessity - Tobacco Use Smoking Status: Current every day smoker Tobacco Use: Cigarettes Assessment/Plan All Active Problems (Last Reviewed 07/01/18 @ 08:35 by Danielle Medrano) Atypical chest pain (Acute) Acute pancreatitis (Acute) Nonspecific colitis (Acute) The patient is a 49 year old M with no coronary artery disease but with history of asthma came to ED with chest pressure ongoing for 3 days. Patient serum lipase elevated. 1. Atypical presentation of acute pancreatitis with chest pressure: Patient is being admitted in PCU. IV fluid Ringer lactate at 200 mL/h. Monitor intake and output. Liver enzymes ordered. Right upper quadrant sonogram tomorrow a.m. Protonix 40 mg IV every 12 hourly. 08/29: Patient is still complaining of pain but feels very hungry and demanding food. Serum lipase repeat normal. K3.7. Liver enzymes are normal except albumin 2.8. Serum triglyceride 144, LDL 87. TSH 6.17 elevated but free T4 normal possible euthyroid sick syndrome. Repeat thyroid test after 6 weeks. Started on clear liquid and advance as per patient tolerated. 2. Chest pressure with suspicion of unstable angina: Patient states chest pain worsening with exertion and sex. Repeat EKG. His brother and sister has cardiac murmur. Nitrate is contraindicated as the patient took PDE inhibitor today. 08/29: 2D echo was done. No wall motion abnormality. Treadmill myocardial nuclear perfusion test tomorrow a.m. Serial troponin enzymes negative. Repeat twelve-lead EKG was negative for ischemia. Interpretation Summary Normal LV size. Left ventricular systolic function is normal. The estimated ejection fraction is 55 %. Normal diastology for age. Mild (1+) aortic valve insufficiency. 3. Asthma, chronic stable asthma: Patient on albuterol inhaler at home. DuoNeb every 4 hourly as needed for shortness of breath. 4. Hyperglycemia: Patient does not carry diagnosis of diabetes mellitus. A1c tomorrow a.m. glucose 161 in BMP. 5 other comorbidities: GERD, ED on PDE 5 inhibitor, mild obesity: Home medication reconciliation done. VTE prophylaxis: On Lovenox 40 mg daily Clinical Impression(s) from Imaging Studies Chest X-Ray 08/28/20 14:49 IMPRESSION: Stable, nonacute portable x-ray examination of the chest. Laboratory Results 08/28/20 14:43: WBC 12.1 H, RBC 4.85, Hgb 15.2, Hct 45.7, MCV 94.2 H, MCH 31.3, MCHC 33.3, RDW Std Deviation 45.4 H, RDW Coeff of Sumit 13.0, Plt Count 352, MPV 8.5, Immature Gran % (Auto) 1.000 H, Neut % (Auto) 70.3 H, Lymph % (Auto) 20.5, [place] % (Auto) 5.9, Eos % (Auto) 1.9, Baso % (Auto) 0.4, Absolute Neuts (auto) 8.5 H, Absolute Lymphs (auto) 2.48, Nucleated RBC % 0 08/28/20 14:43: PT 12.5, INR 1.0 08/28/20 14:43: Sodium 139, Potassium 3.4 L, Chloride 106, Carbon Dioxide 27.0, Anion Gap 6, BUN 9, Creatinine 1.04, Estim Creat Clear Calc 85.92, Est GFR (MDRD) Af Amer 97, Est GFR (MDRD) Non-Af 80, BUN/Creatinine Ratio 8.7 L, Glucose 161 H, Calcium 8.4 L, Troponin I < 0.015 08/28/20 14:43: D-Dimer Quant (PE/DVT) 0.31 08/28/20 14:43: Lipase 1438 H 08/28/20 14:43: Total Bilirubin Pending, Direct Bilirubin Pending, AST Pending, ALT Pending, Alkaline Phosphatase Pending, Total Protein Pending, Albumin Pending 08/28/20 14:43: Magnesium Pending Inpatient E&M: [id number] Subs Hosp L2
[2020-08-29 11:42] LABS: Lipase 229 U/L (73-393)
[2020-08-30] MEDS: 0.9% Saline Lock 10 ML Syringe IV ×2 (01:56→06:11)
[2020-08-30] MEDS: HYDROmorphone 1 MG/ML Syringe IV ×2 (01:56→06:11)
[2020-08-30 03:00] VITALS: PULSE 83
[2020-08-30 03:40] VITALS: BP 114/74; PULSE 85; RESP 20; TEMP 36.4; O2SAT 94
--- NOTE | 2020-08-30 05:55 | EKG12_ITS ---
Test Reason : AM EKG Blood Pressure : / mmHG Vent. Rate : 083 BPM Atrial Rate : 083 BPM P-R Int : 144 ms QRS Dur : 078 ms QT Int : 336 ms P-R-T Axes : 018 -26 044 degrees QTc Int : 394 ms Normal sinus rhythm Normal ECG When compared with ECG of 28-AUG-2020 17:20, MANUAL COMPARISON REQUIRED, DATA IS UNCONFIRMED Confirmed by PETER BRITO, MAYO ([id number]), medical editor SURAJ CLEMONS ([id number]) on 08/31/2020 10:55:07 AM Referred By: MICHELLE Confirmed By:MAYO GREEN MD
[2020-08-30] MEDS: Aspirin E.C. 81 MG Tablet PO (06:12)
[2020-08-30 07:02] VITALS: PULSE 83
--- NOTE | 2020-08-30 07:57 | DCINST_ITS ---
- Discharge Diagnoses Current Active Problems: Current Active and Chronic Problems (Last Reviewed 07/01/18 @ 08:35 by Danielle Medrano) Atypical chest pain (Acute) Acute pancreatitis (Acute) Nonspecific colitis (Acute) History of MRSA infection (Chronic) Esophageal reflux (Chronic) Asthma (Chronic) You will use the following diet at home:: Other Your food should be the consistency of: Regular Discharge Activity: Return to Normal Activity Call your doctor if you observe: Fever of 101 or Higher, Coldness, Increased Pain, Numbness or Tingling, Change in Color, Inability to urinate, Inability to have a bowel movement, Shortness of breath, Dizziness, Fainting spells, Swelling in the ankles, Chest pain, Prolonged hiccoughing, Increased palpitations (irregular heartbeat), Calf discomfort, Uncontrolled pain Allergies/Adverse Reactions: Allergies NUTS Allergy (Uncoded 08/28/20 14:45) Angioedema SEAFOOD Allergy (Uncoded 08/28/20 14:45) Angioedema Medications to take at Discharge Albuterol Aerosols [Ventolin Aerosols] 2.5 mg INHALATION Q4H PRN #25 vial 10/21/19 Albuterol Inhaler [Ventolin Hfa] 2 puff INHALATION Q4H PRN PRN #1 inhaler 10/21/19 Pantoprazole Sodium [Protonix] 40 mg PO DAILY #30 tab 08/30/20 Primary Care Physician: NOT,DEFINED [NON-STAFF] - Please follow up with your Primary Care Physician in: in 2 week Test Results: Test results from this visit will be discussed in further detail at your follow- up appointment, if applicable.
[2020-08-30 10:40] VITALS: BP 121/67; PULSE 89; RESP 14; TEMP 37; O2SAT 97
[2020-08-30 11:03] LABS: Cholesterol 176 mg/dL (200); High Density Lipoprotein 34 mg/dL; Triglycerides 167 mg/dL; Very Low Density Lipoprotein 33 mg/dL (5-40)
--- NOTE | 2020-08-30 13:03 | STRESSREP_ITS ---
Stress Test Report Pharmacologic myocardial perfusion stress test. 49-year-old male with a history of chest pain. Stress protocol: Resting KG demonstrates normal sinus rhythm with a rate of 84 bpm normal intervals are noted. Normal intervals are noted resting blood pressure is 126/74 mmHg. 0.4 mg of regadenoson was infused per usual protocol followed by rapid venous saline flush injection continuous EKG monitoring is performed. The maximum heart rate attained 110 bpm which was 64% of max impacted heart rate the maximum workload was 1 metabolic equivalent. At rest there were no ST or T wave changes noted to suggest ischemia at peak infusion nonspecific ST-T wave changes were noted with did not meet the criteria for ischemia. The final blood pr essure was 1 and 36/70 8 mmHg. Myocardial perfusion protocol. 11.5 mCi of technetium 99m sestamibi was injected at rest. 0.4 mg of regadenoson was infused per usual protocol. At peak infusion 33.4 mCi of technetium 99m sestamibi was injected stress images were obtained stress and rest images are reconstructed and compared in the short axis vertical long horizontal long axis. Gated images were also obtained to Perfusion SPECT analysis: Review of the stress images demonstrate normal uptake of tracer noted in all areas of the myocardium the resting images similarly demonstrate normal uptake of tracer noted in all areas of the myocardium. No areas of reversibility are noted suggest ischemia. Anterior breast wall attenuation cannot be completely excluded. Gated SPECT analysis: The gated ejection fraction is noted to be 60%. Conclusion: Normal pharmacologic myocardial perfusion stress test. Preserved ejection fraction
--- NOTE | 2020-08-30 13:13 | PCM.DC.SUM ---
Discharge Date and Diagnosis - Problem List Patient Problems: Active and Suspected Problems (Last Reviewed 07/01/18 @ 08:35 by Danielle Medrano) Atypical chest pain (Acute) Acute pancreatitis (Acute) Nonspecific colitis (Acute) Date of Admission: 08/28/20 Date of Discharge: 08/30/20 - Primary Discharge Diagnosis Acute Problems: Active Problems (Last Reviewed 07/01/18 @ 08:35 by Danielle Medrano) Atypical chest pain (Acute) Acute pancreatitis (Acute) Nonspecific colitis (Acute) - Secondary Discharge Diagnosis Chronic Problems: Chronic Problems (Last Reviewed 07/01/18 @ 08:35 by Danielle Medrano) History of MRSA infection (Chronic) Esophageal reflux (Chronic) Asthma (Chronic) Hospital Course and Treatment Imaging Results: 08/30/20 05:55 Nuclear Stress Test - Treadmil [NM] AM (NON MEDS) Operations: None Summary of Care Provided: The patient is a 49 year old M with no coronary artery disease but with history of asthma came to ED with chest pressure ongoing for 3 days. Patient serum lipase elevated. 1. Atypical presentation of acute pancreatitis with chest pressure acute etiology unclear: Patient was admitted in PCU. Initially kept n.p.o. and treated vigorously with IV fluid Ringer lactate. Monitor intake and output. Protonix 40 mg IV every 12 hourly. Serum lipase repeat normal. K3.7. Liver enzymes are normal except albumin 2.8. Serum triglyceride 144, LDL 87. TSH 6.17 elevated but free T4 normal possible euthyroid sick syndrome. Repeat thyroid test after 6 weeks. Diet was advanced to clear and then regular and patient tolerated well. No epigastric or right upper quadrant tenderness. Right upper quadrant sonogram shows no gallstone, cholecystitis or biliary obstruction. Mild hepatomegaly and fatty stasis. Fatty replacement of pancreas. Serum triglyceride 167. 2. Chest pressure with suspicion of unstable angina: Patient states chest pain worsening with exertion and sex. Repeat EKG. His brother and sister has cardiac murmur. Nitrate is contraindicated as the patient took PDE inhibitor today. 2D echo was done. No wall motion abnormality. Serial troponin enzymes negative. Repeat twelve-lead EKG was negative for ischemia. Lexiscan nuclear stress test was negative for acute ischemia and reported normal. 2D echo Interpretation Summary Normal LV size. Left ventricular systolic function is normal. The estimated ejection fraction is 55 %. Normal diastology for age. Mild (1+) aortic valve insufficiency. 3. Asthma, chronic stable asthma: Patient on albuterol inhaler at home. DuoNeb every 4 hourly as needed for shortness of breath. 4. Hyperglycemia: Repeat glucose was 97. Follow with PCP and may need A1c on baseline. 5 other comorbidities: GERD, ED on PDE 5 inhibitor, mild obesity: VTE prophylaxis: On Lovenox 40 mg daily Discharge medication reconciliation done. Discharge follow-up instructions completed. Discharge process discussed with the patient and all questions were answered to patient's satisfaction. Discharged on Protonix 40 mg daily. Total time spent, exact 35 minutes on discharge meds reconciliation, examination, coordination of care with nurses and ancillary staff, review of imaging and blood test and discussion with the patient on follow-up instructions Laboratory Results 08/30/20 10:34: Triglycerides 167, Cholesterol 176, LDL Cholesterol 109, VLDL Cholesterol 33, HDL Cholesterol 34 L Clinical Impression(s) from Imaging Studies Chest X-Ray 08/28/20 14:49 IMPRESSION: Stable, nonacute portable x-ray examination of the chest. Abdomen Ultrasound 08/29/20 05:55 IMPRESSION: 1. No gallstones, cholecystitis or biliary obstruction. 2. Hepatomegaly with increased echogenicity of the liver suggesting hepatic steatosis. 3. Fatty replacement of the pancreas. Electronically Signed: Tao Martinez MD ([place]) at 8:52 EST , Service support , Patient Problems: Active and Suspected Problems (Last Reviewed 07/01/18 @ 08:35 by Danielle Medrano) Atypical chest pain (Acute) Acute pancreatitis (Acute) Nonspecific colitis (Acute) Objective: Patient still complained of chest pressure. Patient asking Dilaudid and morphine initially for sleep and rest. No emotional or objective signs of pain. Seen and Dilaudid discontinued. Physical exam General: Alert, Oriented x3, Cooperative HEENT: Atraumatic, PERRLA, EOMI, Normocephalic Oral: No Gingival or Mucosal Lesions/ Ulcerations Neck: Supple, No JVD, Negative Carotid Bruits Lungs: Air entry diminished in bilateral lung bases. No crepitation/rhonchi Cardiovascular: Regular rate, Regular Rhythm, Normal S1, Normal S2, early diastolic murmur over aortic area. Abdomen: No epigastric or right upper quadrant tenderness. Bowel Sounds Present, Soft, Non-Distended. No palpable mass : No renal angle tenderness. No suprapubic tenderness. Extremities: No edema, Capillary Refill Less than 3 Seconds Skin: No rashes, No breakdown Musculoskeletal: No Tenderness to Palpation of Joints or Extremities Neurological: Cranial nerves II-XII grossly intact, Deep Tendon Reflexes 2+/4 and Symmetrical, Neuro grossly intact Psych/Mental Status: Normal Affect, Appropriate. - Physical Exam Vitals/I&O's: Vital Signs Temp Pulse Resp BP Pulse Ox 97.6 F L 83 20 H 114/74 94 08/30/20 03:40 08/30/20 07:02 08/30/20 03:40 08/30/20 03:40 08/30/20 03:40 Oxygen Delivery Method Room Air Weight: 201 lb 15.095 oz Body Mass Index (BMI) 29.8 Intake and Output for Last 24 Hours 08/28/20 08/29/20 08/30/20 23:59 23:59 23:59 Intake Total 1310 / 1310 3233.33 / 3233.33 Output Total 3875 / 3875 Balance 1310 / 860 -641.67 / -641.67 Laboratory Results 08/29/20 04:50: Free T4 1.11 08/29/20 04:50: Lipase 229 08/30/20 07:30: Triglycerides Pending, Cholesterol Pending, LDL Cholesterol Pending, VLDL Cholesterol Pending, HDL Cholesterol Pending Current Medications Acetaminophen (Acetaminophen 325 Mg Tablet) 650 mg PO Q6H PRN PRN PRN Reason: Pain Score 1-10/Temp > 100.7 F Last Admin: 08/29/20 17:13 Dose: 650 mg Documented by: Al Hydroxide/Mg Hydroxide (Mag Hydrox/Al Hydrox/Simeth 30 Ml Udc) 30 ml PO Q6H PRN PRN PRN Reason: Gastric Burning Albuterol Sulfate (Albuterol 2.5 Mg/3 Ml Vial.Neb.) 2.5 mg INHALATION Q2H PRN PRN PRN Reason: SOB/Wheezing Aspirin (Aspirin E.C. 81 Mg Tablet) 81 mg PO DAILY@0800 RU Last Admin: 08/30/20 06:12 Dose: 81 mg Documented by: Enoxaparin Sodium (Enoxaparin 40 Mg/0.4 Ml Syringe) 40 mg SC DAILY [facility] Last Admin: 08/29/20 09:23 Dose: 40 mg Documented by: Hydromorphone HCl (Hydromorphone 1 Mg/Ml Syringe) 1 mg IV Q4H PRN PRN PRN Reason: Pain Score 6-10 Last Admin: 08/30/20 06:11 Dose: 1 mg Documented by: Pantoprazole Sodium 40 mg/ (Sodium Chloride) 110 mls @ 330 mls/hr IV Q12 [facility] Last Infusion: 08/29/20 21:52 Dose: Infused Documented by: Sodium Chloride () 250 mls @ 15 mls/hr IV .[id number] PRN PRN Reason: Saline Flush Sodium Chloride () 250 mls @ 15 mls/hr IV .[id number] PRN PRN Reason: Additional IVPB Infusion Morphine Sulfate (Morphine 2 Mg/Ml Syringe) 2 mg IV Q3H PRN PRN PRN Reason: Pain Score 4-5 Last Admin: 08/29/20 09:36 Dose: 2 mg Documented by: Nicotine (Nicotine 21 Mg Patch) 21 mg TRANSDERM. DAILY [facility] Last Admin: 08/29/20 09:24 Dose: 21 mg Documented by: Ondansetron HCl (Ondansetron 4 Mg/2 Ml Vial) 4 mg IV Q8H PRN PRN PRN Reason: NAUSEA/VOMITING Prochlorperazine Edisylate (Prochlorperazine 10 Mg/2 Ml Vial) 5 mg IV Q4H PRN PRN PRN Reason: Breakthrough Nausea/Vomiting Sodium Chloride (0.9% Saline Lock 10 Ml Syringe) 10 - 40 ml IV UD PRN PRN Reason: SALINE FLUSH Last Admin: 08/30/20 06:11 Dose: 10 ml Documented by: Home Medications: Medications to take at Discharge Albuterol Aerosols [Ventolin Aerosols] 2.5 mg INHALATION Q4H PRN #25 vial 10/21/19 Albuterol Inhaler [Ventolin Hfa] 2 puff INHALATION Q4H PRN PRN #1 inhaler 10/21/19 Pantoprazole Sodium [Protonix] 40 mg PO DAILY #30 tab 08/30/20 Following Prescriptions Were Given to Patient: Pantoprazole Sodium [Protonix] 40 mg PO DAILY #30 tab Transmission Status: Received by [facility]/pharmacy #[id number] Primary Care Physician: NOT,DEFINED [NON-STAFF] - Medical Necessity - Tobacco Use Smoking Status: Current every day smoker Tobacco Use: Cigarettes Meaningful Use Info Meaningful Use Diagnoses (Choose all that apply): None applicable Inpatient E&M: 12870 Disch Hosp
== END 2020-08-30 11:58 | disposition home or self-care (01) ==
LOC: ED 15:40 → PCU 17:03
PROVIDERS: Admitting Provider Internal Medicine; Emergency Provider Emergency Medicine; PCP Internal Medicine; Visit Provider Internal Medicine
DX: K85.90 Acute pancreatitis without necrosis or infection, unspecified (principal); R07.89 Other chest pain; E16.2 Hypoglycemia, unspecified; J45.909 Unspecified asthma, uncomplicated; K21.9 Gastro-esophageal reflux disease without esophagitis; F12.90 Cannabis use, unspecified, uncomplicated; K76.0 Fatty (change of) liver, not elsewhere classified; N52.9 Male erectile dysfunction, unspecified; F17.210 Nicotine dependence, cigarettes, uncomplicated; E66.9 Obesity, unspecified; Z68.29 Body mass index [BMI] 29.0-29.9, adult; Z79.01 Long term (current) use of anticoagulants; Z79.82 Long term (current) use of aspirin; Z86.14 Personal history of Methicillin resistant Staphylococcus aureus infection; Z87.19 Personal history of other diseases of the digestive system; Z79.899 Other long term (current) drug therapy
CPT/HCPCS: 36415; 71045; 76705; 78452; 80048; 80061; 80076; 83690; 83735; 84439; 84443; 84484; 85025; 85379; 85610; 93005; 93017; 93306; 96361; 96365; 96366; 96372; 96375; 96376; 99218; 99285; 99406; A9500; J7120; A4216; G0378; J2785

== ENCOUNTER 2022-02-15 22:49 | Emergency (ER) | payer OTHER, SELFPAY ==
--- NOTE | 2022-02-15 22:50 | ED.RN ---
PT STATES IM NOT GOING TO FILE A CLAIM, JUST WANT TO MAKE SURE IM OK.
[2022-02-15 22:51] VITALS: BP 137/76; PULSE 95; RESP 14; TEMP 36.6; O2SAT 98; BMI 28.5
--- NOTE | 2022-02-15 23:07 | ED.RN ---
Patient stated that the only reason I am here is because it is on [employer] bill. Informed patient that unless he filed work man's comp. form he would need to pay. He agreed to fill out form, no drug test necessary.
--- NOTE | 2022-02-16 00:25 | EX.ED.GENINJ ---
HPI History of Present Illness Chief Complaint: Burn Informant: patient Narrative Narrative: Presents for evaluation of burn to his right hand left wrist 9 PM at work. Cleaning moving hot oil when his foot got caught spilling onto his right hand left wrist. No medications taken prior to arrival. States was burning initially was running a cold water now mild symptoms. No paresthesias no loss of function. PFSH PFSH Medical History Asthma Home Medications albuterol sulfate 2 puff INHALATION Q4H PRN PRN #1 inhaler 10/21/19 [Rx Last Taken Unknown] albuterol sulfate 2.5 mg INHALATION Q4H PRN #25 vial 10/21/19 [Rx Last Taken Unknown] pantoprazole 40 mg PO DAILY #30 tab 08/30/20 [Rx Last Taken Unknown] Allergy/AdvReac Type Severity Reaction Status Date / Time NUTS Allergy Angioedema Uncoded 02/15/22 22:50 SEAFOOD Allergy Angioedema Uncoded 02/15/22 22:50 Family History Father Prostate cancer Mother Asthma Grandmother Skin cancer Grandfather Colon cancer Social History Smoking Status: Current every day smoker tobacco type: cigarettes alcohol intake: current alcohol intake frequency: holidays/special occasions only substance use type: marijuana what type of physical activity do you participate in: none ROS ROS ED Constitutional Constitutional ED: Denies chills, fever(s) or sweats Eyes Eyes: Denies change in vision ENT ENT ED: Denies dysphagia or sore throat Cardiovascular Cardiovascular: Denies chest pain, leg edema, palpitations or racing heartbeat Respiratory/Chest Respiratory/Chest: Denies cough, dyspnea or dyspnea on exertion Gastrointestinal Gastrointestinal: Denies abdominal pain, diarrhea, nausea or vomiting Genitourinary Genitourinary ED: Denies dysuria, hematuria or urinary frequency Musculoskeletal Musculoskeletal: Denies back pain, extremity pain or neck pain Integumentary Reports other Details: Burn to right hand, left wrist ; Denies rash or wounds Neurologic Neurologic: Denies headache(s), paresthesias or weakness EXAM Physical Exam Const Vital Signs: 02/15/22 22:51 02/15/22 23:01 Temperature 97.8 F Temperature Source Temporal Pulse Rate 95 Respiratory Rate 14 Respiratory Effort Normal Blood Pressure 137/76 H Blood Pressure Mean 96 Pulse Ox 98 Oxygen Delivery Method Room Air Positive well nourished and well developed General Appearance ED: well developed and NAD HEENT Reports moist mucous membranes normocephalic and atraumatic Eyes PERRL, EOMs intact bilaterally and conjunctivae normal General Eye ED: Yes normal appearance of both eyes Neck no lymphadenopathy and supple General: Negative for tenderness Chest Wall Chest: Negative for tenderness Resp normal respiratory effort and normal air movement Effort and Inspection: symmetric chest movement; Negative for respiratory distress Cardio regular rate, regular rhythm and no murmurs Peripheral Pulses: pulses 2+ throughout GI normal to inspection, nondistended, normoactive bowel sounds and non-tender Palpation: Negative for guarding or rebound tenderness present Back/Spine no CVA tenderness and no thoracic nor lumbar tenderness Extremity normal to inspection General Extremety ED: Negative for edema or tenderness General Extremity: Negative for edema Neuro oriented x3 and no sensory deficits noted Sensorium / Orientation: awake and alert Skin Skin Narrative: Right upper extremity: Hand there is erythema to the palmar aspect of the hand including the fingers, index finger had 1 small blister at the middle phalanx volarly along with 1 small blister on the dorsal aspect. Full range of motion of the hands. Skin intact. Left upper extremity: There is mild erythema right at the ulnar aspect of the distal wrist. There is no blistering. Skin intact. MDM MDM MDM Narrative Medical decision making narrative: Patient with primary first-degree burn less than 2% overall, very small blistering to left index finger is a second-degree burn. He declined any anti-inflammatory or pain medicines in the ED. He requested a dressing to his right hand. Xeroform dressing placed by nursing. Appropriate work restrictions and follow-up with occupational health. Discharge Plan Triage Chief Complaint: Burn ED Provider: Casey Delvalle Dx/Rx/DC Orders Clinical Impression: First degree burn of right hand including fingers, Burn of wrist, left, first degree, Second degree burn of finger of right hand Instructions: ED First- and Second-Degree Moreno ... Prescriptions: No Action albuterol sulfate 2.5 MG/3 ML solution for nebulization 2.5 mg inhalation Q4H PRN Qty: 25 RF: 0 albuterol sulfate 1 INHALER inhaler 2 puff inhalation Q4H PRN PRN (Reason: Wheezing) Qty: 1 RF: 0 pantoprazole 40 MG tablet 40 mg PO DAILY Qty: 30 RF: 0 Primary Care Provider: Care Physician,No Primary Referrals: [facility]] - 3-5 Days Care Physician,No Primary [Primary Care Provider] - Disposition Disposition: Home, Self Care Discharge Date/Time: 02/16/22 01:05
== END 2022-02-16 01:05 | disposition home or self-care (01) ==
PROVIDERS: Emergency Provider Emergency Medicine; Visit Provider Emergency Medicine
DX: T23.221A Burn of second degree of single right finger (nail) except thumb, initial encounter (principal); F17.210 Nicotine dependence, cigarettes, uncomplicated; J45.909 Unspecified asthma, uncomplicated; T31.0 Burns involving less than 10% of body surface; T23.172A Burn of first degree of left wrist, initial encounter; T23.131A Burn of first degree of multiple right fingers (nail), not including thumb, initial encounter; X19.XXXA Contact with other heat and hot substances, initial encounter; Y93.89 Activity, other specified; Y99.0 Civilian activity done for income or pay; Y92.89 Other specified places as the place of occurrence of the external cause
CPT/HCPCS: 99283

== ENCOUNTER 2022-04-23 12:10 | Outpatient (RCR) | payer OTHER, SELFPAY ==
--- NOTE | 2022-04-23 15:06 | HP.PTEVAL ---
Patient's Visit Information ANYI MOREJON is a 51 year old M referred to Physical Therapy by Dr. Cintia Sorenson MD with a diagnosis of LEFT KNEE PAIN. Date of Evaluation: 04/23/22 Physical Therapist: Solis Campos PT, Cert MDT, OCS - Visit Plan Frequency: 2x /Week Duration: 4 Weeks Plan: PT INTERVETION MODALTIES FOR PAIN ,STRETCHING HAMSTRINS/QUADS, GRADED PRE'S QUADS/HAMS/HIP , FUNCTIONAL STRENGTH AND ROM/BIKE - Subjective This 51 y/o male presents to physical therapy with left knee pain. This patient injury knee step out [place] on ice in Oct 2021 felt immediate pain ,fell forward with knee bent. Patient went to ER in Oct did x-rays -. Patient was using crutches back then and progressively return to work. Patient had popping in knee for 4 month . Patient has pain with normal gait. Patient stated lost extension unable to straighten. Seen DR recommended PT no meds. Aggravating squatting/kneeling, standing , walking extended period, extended sitting to get up. Alleviating factors rest Advil. Denies paresthesia/tingling. Currently good sleeping . Patient DR wants to do MRI . Patient stated if you make my pain worse IM not coming back to PT. Patient pain affects QOL and function. SOCAIL: SINGLE. VOCATION: Simple-Fill - Pain Left Knee Pain Intensity (Out of 10): 4 Pain Intensity Range: 10 - Objective POSTURE: mild forward posture knee flexed. GAIT: reciprocal pattern with knee extended decrease stance time and swing phase. PALPATION: patella tendon region distal. EDEMA: absent. AROM: supine active flexion 2 -135 degrees ,OP increase symptoms. MMT: ( peak force ) - left quads 14.2,hamstrings 21.2 ,hip flexion 27.7. SRAIRS: one step at time - Special Tests L Knee Nano - Meniscus: Negative L Knee Zoe - ACL: Negative L Knee Anterior Drawer - ACL: Negative L Knee Posterior Drawer - PCL: Negative L Knee Valgus - MCL: Negative L Knee Varus - LCL: Negative L Knee Patellar Apprehension - PFS: Negative L Knee Patellar Grind - PFS: Negative - Balance/Special Test Scores Lower Extremity Functional Score: 27 - Goals Goal 1:: I with HEP for knee strengthneing Goal Time Frame: 4-6 Weeks Goal 2:: Patient to demonstrate 50% improvement with decrease pain and improve function with walking Goal Time Frame: 4-6 Weeks Goal 3:: Patient to normalize gait pattern Goal Time Frame: 4-6 Weeks Goal 4:: Patient to improve peak force of quads/hams by 5-10 to improve gait Goal Time Frame: 4-6 Weeks Goal 5:: Patient to improve LFES score by 5-10 points to improve gait Goal Time Frame: 4-6 Weeks - Rehabilitation Potential Physical Therapy Diagnosis: This patient injury knee Oct 2021 slipped forward causing knee pain anterior patella eventually got better after 4 weeks ~ but never got better with pain with weakness ,decrease extension with pain affects walking and general activity x-rays thus need skilled PT Rehabilitation Potential: Good - Anticipated Interventions Patient/Client Instruction: Educate patient on: Condition, Plan of Care For the Purpose of:: To decrease pain, To increase ROM, To improve muscle performance and motor function, To improve ability to perform ADL's, To increase tolerance to activity/condition/position, To improve gait and locomotor functions, To decrease soft tissue restriction, To increase flexibility/ROM, To improve endurance Therapeutic Exercise to Include: Strength training, Endurance training, Balance training, Flexibilty training, Gait and locomotor training, Active ROM Comment: QUADS/HAMS For the Purpose of:: To decrease pain, To increase ROM, To increase oxygenation perfusion, To improve ability to perform ADL's, To increase tolerance to activity/condition/position, To improve ability of physical actions for home/community/work/leisure, To improve gait and locomotor functions, To improve health of tissue, To decrease soft tissue restriction, To increase flexibility/ROM TENS: Yes IF ES: Yes Cryotherapy (ice pack, ice massage): Yes Thermo therapy (hot pack): Yes Ultrasound (thermal/non thermal): Yes For the Purpose of:: To decrease pain, To increase ROM, To improve nutrient delivery to tissue, To increase oxygenation perfusion, To improve health of tissue, To decrease soft tissue restriction Thank you for the opportunity to evaluate your patient. For Medicare and Medicare HMO plans, please review the plan of care and approve it. It will need to be FAXED BACK to us at [phone] for Medicare purposes. For Medicare only, by signing this I certify the plan of care. Please let me know if there are questions or concerns regarding this plan of care. Physician Signature: Date:
--- NOTE | 2022-09-25 10:16 | HP.PT.NRP ---
ANYI MOREJON was seen in my office for initial evaluation on 04/23/22. The following Plan of Care was established for this patient: Initial Frequency: 2x /Week Initial Duration: 4 Weeks Patient/Client Instruction: Educate patient on: Condition, Plan of Care For the Purpose of:: To decrease pain, To increase ROM, To improve muscle performance and motor function, To improve ability to perform ADL's, To increase tolerance to activity/condition/position, To improve gait and locomotor functions, To decrease soft tissue restriction, To increase flexibility/ROM, To improve endurance Therapeutic Exercise to Include: Strength training, Endurance training, Balance training, Flexibilty training, Gait and locomotor training, Active ROM For the Purpose of:: To decrease pain, To increase ROM, To increase oxygenation perfusion, To improve ability to perform ADL's, To increase tolerance to activity/condition/position, To improve ability of physical actions for home/community/work/leisure, To improve gait and locomotor functions, To improve health of tissue, To decrease soft tissue restriction, To increase flexibility/ROM TENS: Yes IF ES: Yes Cryotherapy (ice pack, ice massage): Yes Thermo therapy (hot pack): Yes Ultrasound (thermal/non thermal): Yes For the Purpose of:: To decrease pain, To increase ROM, To improve nutrient delivery to tissue, To increase oxygenation perfusion, To improve health of tissue, To decrease soft tissue restriction This patient was last seen in our office . Pertinent comments regarding their Physical therapy will appear below: Patient was seen for PT evbrandon for knee pain and HEP At this point I will be discontinuing this patient from physical therapy. I would be happy to see this patient again in the future if found appropriate by the physician. Thank you! Solis Campos, PT, Cert MDT, OCS Balance/Gait/Functional tests - Balance/Special Test Scores Lower Extremity Functional Score: 27
== END 2022-04-23 19:00 | disposition home or self-care (01) ==
LOC: PT 12:10
PROVIDERS: PCP Internal Medicine; Visit Provider Internal Medicine
DX: M25.562 Pain in left knee (principal)
CPT/HCPCS: 97110; 97162

== ENCOUNTER → 2023-10-11 | Outpatient (CLI) | payer OTHER, SELFPAY | END | disposition home or self-care (01) | LOC: LABSPEC 11:37 | PROVIDERS: PCP Internal Medicine; Visit Provider Physician Assistant | DX: R05.9 Cough, unspecified (principal) | CPT/HCPCS: 87635 ==

== ENCOUNTER → 2024-07-22 | Outpatient (CLI) | payer OTHER, SELFPAY ==
[2024-07-22 17:42] LABS: Absolute Lymphocyte Count 2.25 X10^3/uL (0.83-4.51); Absolute Neutrophil Count 5.7 X10^3/uL (2.0-7.7); Basophil# 0.05 X10^3/uL; Basophil% 0.6 % (0-1); Eosinophil# 0.23 X10^3/uL; Eosinophils% 2.6 % (0-5); Hematocrit 46.6 % (40-54); Hemoglobin 15.1 g/dL (13.0-16.5); Lymphocyte # 2.25 X10^3/ul (0.83-4.51); Lymphocyte % 25.3 % (19-41); Mean Corp Hgb Conc 32.4 g/dL (32-36); Mean Corpuscular Hgb 30.9 pg (27.0-32.0); Mean Corpuscular Volume 95.5 fL (80-94); Mean Platelet Vol. 9.3 fl (6.2-12.0); Monocyte# 0.69 X10^3/uL; Monocyte% 7.7 % (0-10); NRBC Flagged by Analyzer 0 % (0-5); Neutrophil # 5.66 X10^3/uL (2.7-7.7); Neutrophil % 63.5 % (47-70); Platelet Count 327 K/mm3 (150-450); RBC Distribution Width CV 12.9 % (11.6-14.6); RBC Distribution Width SD 45.1 fl (35.1-43.9); Red Blood Count 4.88 M/mm3 (4.6-6.2); White Blood Count 8.9 K/mm3 (4.4-11.0)
[2024-07-22 18:10] LABS: ALB/GLOB Ratio 1.2 RATIO (0.9-2.4); AST(SGOT) 17 U/L (15-37); Alanine Aminotransfer ALT/SGPT 26 U/L (16-61); Albumin, Serum 3.6 g/dL (3.2-5.0); Alkaline Phosphatase 79 U/L (45-117); Anion Gap 4 (5-15); BUN 11 mg/dL (7-18); BUN/Creat Ratio 11.1 RATIO (10-20); Calcium,Total 9.1 mg/dL (8.5-10.1); Chloride 106 mmol/L (98-107); Cholesterol 162 mg/dL (200); Creatinine, Serum 0.99 mg/dL (0.70-1.30); EST Glomerular Filtration Rate 84 mL/min (>60); Est Glom Filt Rate - Afr Amer 101 mL/min (>60); Globulin 3.1 g/dL (2.2-4.2); Glucose 110 mg/dL (74-106); High Density Lipoprotein 48 mg/dL; Potassium 3.8 mmol/L (3.5-5.1); Protein, Total 6.7 g/dL (6.4-8.2); Sodium Level 140 mmol/L (136-145); Triglycerides 149 mg/dL; Very Low Density Lipoprotein 30 mg/dL (5-40)
== END | disposition home or self-care (01) ==
LOC: BIMLAB 14:43
PROVIDERS: PCP Internal Medicine; Referring Provider Internal Medicine; Visit Provider Internal Medicine
DX: J45.40 Moderate persistent asthma, uncomplicated (principal); Z80.42 Family history of malignant neoplasm of prostate; R79.89 Other specified abnormal findings of blood chemistry; Z13.6 Encounter for screening for cardiovascular disorders
CPT/HCPCS: 36415; 80053; 80061; 84153; 84443; 85025; G0103

== ENCOUNTER 2024-09-21 03:01 | Emergency (ER) | payer OTHER, SELFPAY ==
[2024-09-21 03:01] VITALS: BP 165/82; PULSE 110; RESP 20; TEMP 36.7; O2SAT 96; BMI 29.2
[2024-09-21] MEDS: Ipratropium/Albuterol Sulfate 3 ML AMPUL.NEB INHALATION ×2 (03:34)
[2024-09-21 03:37] VITALS: PULSE 107; RESP 18
--- NOTE | 2024-09-21 03:41 | EDS_ITS ---
HPI History of Present Illness Chief Complaint: Shortness of Breath Informant: patient Narrative Narrative: Patient is a 54-year-old male with past medical history of asthma and GERD. He states roughly 2 hours prior to arrival he began to feel like he was having difficulty breathing. He states that there is no associated chest pain nausea vomiting or diaphoresis. He states that he has a history of asthma and it felt similar to an exacerbation. He states he does not believe he was exposed any type of allergen. He states that he tried 2 treatments at home and they did not seem to help his symptoms and therefore he presents to the hospital for evaluation. Of note after arrival to the hospital the patient does report that he is feeling better [facility] Medical History COVID C. difficile diarrhea Epidermoid cyst of skin of cheek Smoker Asthma History of MRSA infection Esophageal reflux Home Medications ?Medication ?Instructions ?Recorded ?Last Taken ?Type Ventolin HFA 90 mcg/actuation 2 puff inhalation Q6H PRN 07/22/24 Unknown Rx aerosol inhaler (albuterol sulfate) shortness of breath or wheezing #8 grams budesonide 160 mcg-glycopyr 9 2 inh inhalation BID #10.7 grams 07/22/24 Unknown Rx mcg-formot 4.8 mcg/actuation HFA inhaler (Breztri Aerosphere) nicotine (polacrilex) 4 mg buccal 4 mg buccal Q8H PRN nicotine 07/22/24 Unknown Rx lozenge cravings #24 ea nicotine 21 mg/24 hr daily 1 patch transdermal Q24H #28 ea 07/22/24 Unknown Rx transdermal patch prednisone 20 mg tablet 40 mg (2 x 20 mg) PO QDAY #10 tabs 07/22/24 Unknown Rx ipratropium 0.5 mg-albuterol 3 mg 3 ml inhalation Q6H PRN shortness 09/21/24 Unknown Rx (2.5 mg base)/3 mL nebulization of breath/Wheeze #180 mL soln ipratropium 20 mcg-albuterol 100 1 puff inhalation Q6H PRN 09/21/24 Unknown Rx mcg/actuation mist for inhalation shortness of breath or wheezing #4 (Combivent Respimat) grams prednisone 10 mg tablet 10 mg PO UD #33 tabs 09/21/24 Unknown Rx Allergy/AdvReac Type Severity Reaction Status Date / Time Fish Containing Products Allergy Severe Anaphylaxis Verified 09/21/24 03:05 nut - unspecified (nuts) Allergy Severe Anaphylaxis Verified 09/21/24 03:05 shellfish derived Allergy Severe Anaphylaxis Verified 09/21/24 03:05 sulfamethoxazole (From Allergy Mild Rash Verified 09/21/24 03:05 Bactrim) trimethoprim (From Bactrim) Allergy Mild Rash Verified 09/21/24 03:05 Family History (Updated 07/22/24 @ 14:[address] Cintia Sorenson MD) Father Prostate cancer Mother Asthma Grandmother Skin cancer Grandfather Colon cancer Uncle Leukemia Sister Leukemia Sister Diabetes Myocardial infarction Surgical History S/P lens implant H/O removal of cyst H/O adenoidectomy Hx of tonsillectomy Social History (Updated 07/22/24 @ 14:[address] Cintia Sorenson MD) household members: none housing: house current occupational status: employed current occupation: [employer] Smoking Status: Current every day smoker tobacco type: cigarettes Tobacco: How many years used: 40 quit status: considering quitting alcohol intake: current alcohol intake frequency: holidays/special occasions only details: Socially/Holidays Only substance use type: marijuana what type of physical activity do you participate in: walking do you feel safe at home: Yes ROS ROS ED Constitutional Constitutional ED: Denies chills or fever(s) Eyes Eyes: Denies change in vision ENT ENT ED: Reports rhinorrhea and sore throat Cardiovascular Cardiovascular: Denies chest pain or palpitations Respiratory/Chest Respiratory/Chest: Reports cough, dyspnea and other Details: Positive wheeze Gastrointestinal Gastrointestinal: Denies abdominal pain, diarrhea, nausea or vomiting Genitourinary Genitourinary ED: Denies dysuria Musculoskeletal Musculoskeletal: Denies back pain Integumentary Denies rash Neurologic Neurologic: Denies headache(s) Hematologic/Lymphatic Hematologic/Lymphatic: Denies easy bleeding or easy bruising Allergic/Immunologic Allergic/Immunologic ED: Denies mouth swelling, tongue swelling or urticaria EXAM Physical Exam Const Vital Signs: 09/21/24 03:01 09/21/24 03:08 09/21/24 03:37 Temperature 98.1 F Temperature Source Temporal Pulse Rate 110 H 107 H Respiratory Rate 20 H 18 Respiratory Effort Normal Respiratory Pattern Normal Blood Pressure 165/82 H Blood Pressure Mean 109 Pulse Ox 96 Oxygen Delivery Method Room Air Positive well nourished and well developed General Appearance ED: well developed; Negative for pallor HEENT HEENT Narrative: No tongue or lip swelling no oral lesions no airway edema or compromise Cobblestoning is noted in the posterior pharynx consistent with sinus drainage without secondary findings to suggest infection Eyes PERRL and EOMs intact bilaterally General Eye ED: Negative for scleral icterus Neck supple and no JVD Chest Wall palpation of chest normal Resp Resp Narrative: Breath sounds are diminished throughout and patient has mild tachypnea with slight accessory muscle use. There is diffuse inspiratory and expiratory wheezing noted. No nasal flaring or retractions. No grunting. No stridor. No dyspnea with speech Cardio regular rhythm Rate: tachycardic and other Other Details: Slightly tachycardic rate with regular rhythm Radial and carotid pulses are equal and symmetric Extremity normal to inspection Extremity Narrative: No asymmetric edema no pitting edema negative Homans' sign bilaterally Neuro oriented x3, CN's II-XII intact bilaterally and no sensory deficits noted Sensorium / Orientation: alert Motor Exam: strength 5/5 throughout Psych Mood & Affect: anxious Skin no rashes or lesions noted General Skin Exam: Negative for jaundice or pallor MDM MDM MDM Narrative Medical decision making narrative: Patient arrived to ER hypertensive and slightly tachycardic but reports taking albuterol treatments prior to arrival. His history and exam is consistent/concerning for asthma exacerbation versus pneumonia versus pneumothorax. We discussed potential chest x-ray but as his history and exam is most consistent with asthma exacerbation he does not want imaging or laboratory study. The patient was given DuoNeb nebulizer treatments as he reports Combivent has helped him in the past. 125 mg of Solu-Medrol was added as well for inflammatory control. After his treatments his work of breathing and breath sounds did improve. He was satting in the low to mid 90s on room air. Therefore at this time with no respiratory distress and no hypoxia and no need for supplemental oxygen do not feel there is need for further observation or workup in the ER and patient can be discharged home with symptomatic medications History & Record Review Discussion w/independent historian: Patient Discharge Plan Triage Chief Complaint: Shortness of Breath ED Provider: Pankaj Nolasco Dx/Rx/DC Orders Clinical Impression: Asthma exacerbation, Smoker, GERD (gastroesophageal reflux disease) Instructions: Asthma Action Plan, Acute Severe Asthma Prescriptions: New prednisone 10 mg tablet 10 mg PO UD Qty: 33 0RF Rx Instructions: Take 4 tablets daily for 3 days, then 3 daily for 3 days, then 2 daily for 3 days, then 1 a day for 3 days then 1 QOD for 3 doses. ipratropium-albuterol 0.5 mg-3 mg(2.5 mg base)/3 mL solution for nebulization 3 ml inhalation Q6H PRN (Reason: shortness of breath/Wheeze) Qty: 180 1RF Combivent Respimat 20-100 mcg/actuation mist 1 puff inhalation Q6H PRN (Reason: shortness of breath or wheezing) Qty: 4 1RF No Action albuterol sulfate [Ventolin HFA] 90 mcg/actuation HFA aerosol inhaler 2 puff inhalation Q6H PRN (Reason: shortness of breath or wheezing) Qty: 8 0RF nicotine 21 mg/24 hr patch 24 hour 1 patch transdermal Q24H Qty: 28 0RF nicotine (polacrilex) 4 mg lozenge 4 mg buccal Q8H PRN (Reason: nicotine cravings) Qty: 24 0RF Breztri Aerosphere 160-9-4.8 mcg/actuation HFA aerosol inhaler 2 inh inhalation BID Qty: 10.7 5RF prednisone 20 mg tablet 40 mg PO QDAY Qty: 10 0RF Primary Care Provider: Cintia Sorenson Referrals: Cintia Sorenson MD [Primary Care Provider] - Activity Restrictions/Additional Instructions: Please take the steroids as directed to reduce inflammation further. Use the DuoNeb nebulizer treatments while at home 4 times a day for the next 3 to 5 days to prevent exacerbation. If exacerbation happens at work or while out then you can use the Combivent inhaler that was also prescribed. If symptoms spike at home you may take 2 DuoNeb treatments at once. If the treatments help control your symptoms you are safe to stay home but if you have persistent shortness of breath or any further concerns then return to the ER for repeat evaluation Print Language: Swedish Disposition Disposition: Home, Self Care
[2024-09-21] MEDS: MethylPREDNISolone 125 MG/2 ML Vial IV (03:46)
[2024-09-21 04:34] VITALS: BP 154/90; PULSE 96; RESP 16; TEMP 36.4; O2SAT 94
== END 2024-09-21 04:35 | disposition home or self-care (01) ==
PROVIDERS: Emergency Provider Emergency Medicine; PCP Internal Medicine; Visit Provider Emergency Medicine
DX: J45.901 Unspecified asthma with (acute) exacerbation (principal); K21.9 Gastro-esophageal reflux disease without esophagitis; F17.210 Nicotine dependence, cigarettes, uncomplicated; Z86.16 Personal history of COVID-19; Z88.2 Allergy status to sulfonamides; Z88.1 Allergy status to other antibiotic agents
CPT/HCPCS: 94640; 96374; 99283; A4216

== ENCOUNTER 2024-10-16 01:29 | Emergency (ER) | payer OTHER, SELFPAY ==
[2024-10-16] VITALS (14 sets, daily range): BP systolic 115–140; BP diastolic 59–89; PULSE 94–117; RESP 14–32; TEMP 36.4–36.6; O2SAT 91–100; BMI 29.8
[2024-10-16 01:47] LABS: Allen Test Positive; Base Excess 7 mmol/L (-2 to +2); Blood Gas Specimen Type ART; Mode Not entered; O2 Delivery Device BiPAP; PO2 140 mmHG (75-100); RR 14; SITE L Radial; SO2 99 % (95-99); Total Carbon Dioxide 34 mmol/L; pCO2 54.1 mmHg (35-45); pH 7.38 (7.35-7.45)
[2024-10-16] MEDS: MethylPREDNISolone 125 MG/2 ML Vial IV (01:57)
[2024-10-16] MEDS: Ipratropium/Albuterol Sulfate 3 ML AMPUL.NEB INHALATION (02:00)
[2024-10-16] MEDS: Albuterol 2.5 MG/3 ML VIAL.NEB. INHALATION (02:00)
[2024-10-16 02:07] LABS: Absolute Lymphocyte Count 3.39 X10^3/uL (0.83-4.51); Absolute Neutrophil Count 9.2 X10^3/uL (2.0-7.7); Basophil# 0.07 X10^3/uL; Basophil% 0.5 % (0-1); Eosinophil# 0.43 X10^3/uL; Hematocrit 45.9 % (40-54); Hemoglobin 15.4 g/dL (13.0-16.5); Lymphocyte # 3.39 X10^3/ul (0.83-4.51); Mean Corp Hgb Conc 33.6 g/dL (32-36); Mean Corpuscular Hgb 31.3 pg (27.0-32.0); Mean Corpuscular Volume 93.3 fL (80-94); Mean Platelet Vol. 10.1 fl (6.2-12.0); Monocyte# 0.95 X10^3/uL; Monocyte% 6.7 % (0-10); NRBC Flagged by Analyzer 0 % (0-5); Neutrophil # 9.19 X10^3/uL (2.7-7.7); Neutrophil % 65.2 % (47-70); Platelet Count 305 K/mm3 (150-450); RBC Distribution Width CV 13.5 % (11.6-14.6); RBC Distribution Width SD 46.2 fl (35.1-43.9); Red Blood Count 4.92 M/mm3 (4.6-6.2); White Blood Count 14.1 K/mm3 (4.4-11.0)
[2024-10-16 02:25] LABS: Anion Gap 5 (5-15); BUN 13 mg/dL (7-18); BUN/Creat Ratio 11.1 RATIO (10-20); Calcium,Total 8.9 mg/dL (8.5-10.1); Chloride 105 mmol/L (98-107); Creatinine, Serum 1.17 mg/dL (0.70-1.30); EST Glomerular Filtration Rate 69 mL/min (>60); Est Glom Filt Rate - Afr Amer 84 mL/min (>60); Estimated Creatinine Clearance 80.71 ml/min; Glucose 132 mg/dL (74-106); Magnesium 2.1 mg/dL (1.6-2.6); Potassium 4.3 mmol/L (3.5-5.1); Sodium Level 138 mmol/L (136-145)
--- NOTE | 2024-10-16 02:35 | RAD_ITS ---
INDICATION: hypoxia EXAMINATION/TECHNIQUE: X-RAY - XR Chest 1 View COMPARISON: None. Findings: Single frontal view of the chest. LUNG PARENCHYMA: No acute focal airspace disease or mass lesion. PLEURA: No pleural effusion. No pneumothorax. HEART/GREAT VESSELS: Cardiomediastinal silhouette is unremarkable. BONES: Osseous structures are unremarkable for age. RAD/Chest 1 View (Portable) IMPRESSION: Chest with no acute disease. Electronically Signed: Misha Barrios MD at 3:52 EST ,
[2024-10-16 02:38] LABS: BNP,B-Type NATRIURETIC PEPTIDE 5.1 pg/mL (0-100)
--- NOTE | 2024-10-16 02:44 | EDS_ITS ---
HPI History of Present Illness Chief Complaint: Shortness of Breath Informant: patient and EMS Narrative Narrative: Patient is a 54-year-old male with past medical history of asthma tobacco abuse and GERD. He was seen roughly 1 month ago for asthma/COPD exacerbation after receiving treatments reported feeling better and was discharged home. He states he has been doing well but that this evening after work he began having increased shortness of breath. He states he took his home inhaler without any symptom improvement and secondary to this called EMS. EMS states when they arrived patient's pulse ox on room air was in the mid to low 80s. They state they placed him on 6 L nasal cannula but he was having persistent work of breathing and therefore he was transitioned to CPAP which did help resolve his symptoms. The patient denies any recent sick contacts and he does report an allergy to nuts but denies any obvious exposure prior to symptom onset. [facility] Medical History COVID C. difficile diarrhea Epidermoid cyst of skin of cheek Smoker Asthma History of MRSA infection Esophageal reflux Home Medications ?Medication ?Instructions ?Recorded ?Last Taken ?Type Ventolin HFA 90 mcg/actuation 2 puff inhalation Q6H PRN 07/22/24 Unknown Rx aerosol inhaler (albuterol sulfate) shortness of breath or wheezing #8 grams budesonide 160 mcg-glycopyr 9 2 inh inhalation BID #10.7 grams 07/22/24 Unknown Rx mcg-formot 4.8 mcg/actuation HFA inhaler (Breztri Aerosphere) nicotine (polacrilex) 4 mg buccal 4 mg buccal Q8H PRN nicotine 07/22/24 Unknown Rx lozenge cravings #24 ea nicotine 21 mg/24 hr daily 1 patch transdermal Q24H #28 ea 07/22/24 Unknown Rx transdermal patch ipratropium 0.5 mg-albuterol 3 mg 3 ml inhalation Q6H PRN shortness 09/21/24 Unknown Rx (2.5 mg base)/3 mL nebulization of breath/Wheeze #180 mL soln ipratropium 20 mcg-albuterol 100 1 puff inhalation Q6H PRN 09/21/24 Unknown Rx mcg/actuation mist for inhalation shortness of breath or wheezing #4 (Combivent Respimat) grams albuterol sulfate 90 mcg/actuation 2 puff inhalation Q4H PRN PRN 10/16/24 Unknown Rx aerosol inhaler (Ventolin HFA) Wheezing/SOB #1 device budesonide 160 mcg-glycopyr 9 2 inh inhalation BID #10.7 grams 10/16/24 Unknown Rx mcg-formot 4.8 mcg/actuation HFA inhaler (Breztri Aerosphere) ipratropium 0.5 mg-albuterol 3 mg 3 ml inhalation Q6H PRN shortness 10/16/24 Unknown Rx (2.5 mg base)/3 mL nebulization of breath or wheezing #180 mL soln ipratropium 20 mcg-albuterol 100 1 puff inhalation Q6H #4 grams 10/16/24 Unknown Rx mcg/actuation mist for inhalation (Combivent Respimat) prednisone 20 mg tablet 40 mg (2 x 20 mg) PO DAILY 7 days 10/16/24 Unknown Rx #14 tabs Allergy/AdvReac Type Severity Reaction Status Date / Time Fish Containing Products Allergy Severe Anaphylaxis Verified 10/16/24 01:29 nut - unspecified (nuts) Allergy Severe Anaphylaxis Verified 10/16/24 01:29 shellfish derived Allergy Severe Anaphylaxis Verified 10/16/24 01:29 sulfamethoxazole (From Allergy Mild Rash Verified 10/16/24 01:29 Bactrim) trimethoprim (From Bactrim) Allergy Mild Rash Verified 10/16/24 01:29 Family History (Updated 07/22/24 @ 14:[address] Cintia Sorenson MD) Father Prostate cancer Mother Asthma Grandmother Skin cancer Grandfather Colon cancer Uncle Leukemia Sister Leukemia Sister Diabetes Myocardial infarction Surgical History S/P lens implant H/O removal of cyst H/O adenoidectomy Hx of tonsillectomy Social History (Updated 07/22/24 @ 14:[address] Cintia Sorenson MD) household members: none housing: house current occupational status: employed current occupation: [email or web address] Smoking Status: Former smoker Tobacco: How many years used: 40 quit status: considering quitting alcohol intake: current alcohol intake frequency: holidays/special occasions only details: Socially/Holidays Only substance use type: marijuana what type of physical activity do you participate in: walking do you feel safe at home: Yes ROS ROS ED Constitutional Constitutional ED: Denies chills or fever(s) Eyes Eyes: Denies change in vision ENT ENT ED: Denies sore throat Cardiovascular Cardiovascular: Denies chest pain or palpitations Respiratory/Chest Respiratory/Chest: Reports cough and dyspnea Gastrointestinal Gastrointestinal: Denies abdominal pain, diarrhea, nausea or vomiting Genitourinary Genitourinary ED: Denies dysuria Musculoskeletal Musculoskeletal: Denies back pain or myalgias Integumentary Denies rash Neurologic Neurologic: Denies headache(s) Hematologic/Lymphatic Hematologic/Lymphatic: Denies easy bleeding or easy bruising Allergic/Immunologic Allergic/Immunologic ED: Denies mouth swelling or tongue swelling EXAM Physical Exam Const Vital Signs: 10/16/24 01:29 10/16/24 01:30 10/16/24 01:33 Temperature 97.5 F L Temperature Source Temporal Pulse Rate 113 H 117 H 113 H Respiratory Rate 28 H 21 H 32 H Respiratory Effort Respiratory Depth Respiratory Pattern Tachypnea Blood Pressure 140/89 H Blood Pressure Mean 106 Pulse Ox 98 100 99 Oxygen Delivery Method Bi-pap Fraction of Inspired Oxygen (FIO2) 40 10/16/24 01:33 10/16/24 01:44 10/16/24 01:59 Temperature Temperature Source Pulse Rate 107 H Respiratory Rate 24 H Respiratory Effort Short of Breath Accessory Muscle Use Respiratory Depth Deep Respiratory Pattern Tachypnea Blood Pressure 122/64 H Blood Pressure Mean 83 Pulse Ox 99 94 Oxygen Delivery Method Bi-pap Bi-pap Bi-pap Fraction of Inspired Oxygen (FIO2) 40 10/16/24 02:00 10/16/24 02:29 10/16/24 02:44 Temperature Temperature Source Pulse Rate 107 H 99 98 Respiratory Rate 23 H 21 H 22 H Respiratory Effort Respiratory Depth Respiratory Pattern Tachypnea Blood Pressure 137/74 H Blood Pressure Mean 95 Pulse Ox 93 93 Oxygen Delivery Method Bi-pap Fraction of Inspired Oxygen (FIO2) 10/16/24 02:45 10/16/24 03:00 10/16/24 03:10 Temperature Temperature Source Pulse Rate 99 96 Respiratory Rate 20 H 21 H Respiratory Effort Respiratory Depth Respiratory Pattern Blood Pressure 115/59 L Blood Pressure Mean 74 Pulse Ox 94 93 92 Oxygen Delivery Method Room Air Fraction of Inspired Oxygen (FIO2) 10/16/24 03:15 10/16/24 03:30 10/16/24 03:45 Temperature Temperature Source Pulse Rate 101 H 94 101 H Respiratory Rate 14 24 H 21 H Respiratory Effort Respiratory Depth Respiratory Pattern Blood Pressure 126/76 H Blood Pressure Mean 91 Pulse Ox 91 92 91 Oxygen Delivery Method Fraction of Inspired Oxygen (FIO2) 10/16/24 04:04 Temperature 97.9 F Temperature Source Pulse Rate 100 Respiratory Rate 20 H Respiratory Effort Respiratory Depth Respiratory Pattern Blood Pressure 126/76 H Blood Pressure Mean 92 Pulse Ox 93 Oxygen Delivery Method Fraction of Inspired Oxygen (FIO2) Positive well nourished and well developed Constitutional Narrative: Patient is in mild respiratory distress with tachypnea and accessory muscle use General Appearance ED: well developed; Negative for pallor HEENT Reports moist mucous membranes HEENT Narrative: No tongue or lip swelling no oral lesions no airway edema or compromise Eyes PERRL and EOMs intact bilaterally General Eye ED: Negative for scleral icterus Neck supple and no JVD Chest Wall palpation of chest normal Resp Resp Narrative: Patient is in mild respiratory distress with tachypnea and accessory muscle use Breath sounds are diminished throughout with diffuse inspiratory and expiratory wheezing Cardio regular rhythm Rate: tachycardic and other Other Details: Tachycardic rate with regular rhythm Radial and carotid pulses are equal and symmetric GI normal to inspection, nondistended, normoactive bowel sounds, non-tender, non- distended and no masses Auscultation: normoactive bowel sounds Palpation: soft Extremity normal to inspection Extremity Narrative: No asymmetric edema no pitting edema negative Homans' sign bilaterally Neuro oriented x3, CN's II-XII intact bilaterally and no sensory deficits noted Sensorium / Orientation: alert Motor Exam: strength 5/5 throughout Psych Mood & Affect: anxious Skin no rashes or lesions noted General Skin Exam: Negative for jaundice or pallor MDM MDM MDM Narrative Medical decision making narrative: Patient arrived to the ER with increased work of breathing requiring BiPAP for airway stabilization and pressure support. He has a history of asthma as well as smoking. Patient may have a asthma/COPD exacerbation but this could be due to influenza versus COVID versus RSV. There is concern for pneumonia versus pneumothorax versus pleural effusion. Patient may also have acute blood loss an emia acute kidney injury or severe electrolyte abnormality. Secondary to this basic blood work was obtained as well as a chest x-ray. Lab work revealed leukocytosis at 14.1 but he has been taking steroids intermittently since his last visit roughly 1 month ago which would account for the leukocytosis. Chest x-ray revealed no acute lung pathology this correlates with his relatively normal ABG. Patient's viral swab was negative. He was taken off BiPAP and was able to sat in the mid to low 90s on room air his work of breathing remained minimal. We discussed potential admission based on his hypoxia and need for BiPAP initially. He states he is feeling much better and does not feel he needs to stay in the hospital and believes he will do well at home if he has his medications. Therefore these will be prescribed and as he is no longer requiring supplemental oxygen his respiratory distress has resolved and he does not have underlying lung pathology such as pneumonia or pneumothorax he is otherwise safe for discharge. History & Record Review Discussion w/independent historian: EMS personnel and Patient Lab Data Attestation: I reviewed the patient's lab results. Labs: Laboratory Results - last 24 hr 10/16/24 01:49 WBC 14.1 H RBC 4.92 Hgb 15.4 Hct 45.9 MCV 93.3 MCH 31.3 MCHC 33.6 RDW Std Deviation 46.2 H RDW Coeff of Sumit 13.5 Plt Count 305 MPV 10.1 Immature Gran % (Auto) 0.600 Neut % (Auto) 65.2 Lymph % (Auto) 24.0 [place] % (Auto) 6.7 Eos % (Auto) 3.0 Baso % (Auto) 0.5 Absolute Neuts (auto) 9.2 H Absolute Lymphs (auto) 3.39 Nucleated RBC % 0 Sodium 138 Potassium 4.3 Chloride 105 Carbon Dioxide 28.0 Anion Gap 5 BUN 13 Creatinine 1.17 Estim Creat Clear Calc 80.71 Est GFR (MDRD) Af Amer 84 Est GFR (MDRD) Non-Af 69 BUN/Creatinine Ratio 11.1 Glucose 132 H Calcium 8.9 Magnesium 2.1 B-Natriuretic Peptide 5.1 ABG Data ABG results: ABG 10/16/24 01:43 Specimen Type ART Sample Site L Radial pH 7.38 Bicarbonate Actual 32.0 H Total CO2 34 Base Excess 7 H O2 Saturation 99 O2 % 40.0 ABG pCO2 54.1 H ABG pO2 140 H Richard Test Positive Respiration Rate 14 O2 Delivery Device BiPAP Vent Mode Not entered Tidal Volume 450.0 Clinical Comments Radiography Diagnostic Testing: Clinical Impression(s) from Imaging Studies Chest X-Ray 10/16/24 02:35 IMPRESSION: Chest with no acute disease. Electronically Signed: Misha Barrios MD at 3:52 EST , Chest x-ray as interpreted by the emergency medicine physician reveals no acute infiltrate pneumothorax or pleural effusion Discharge Plan Triage Chief Complaint: Shortness of Breath ED Provider: Pankaj Nolasco Dx/Rx/DC Orders Clinical Impression: Asthma exacerbation, Smoker, GERD (gastroesophageal reflux disease) Instructions: Asthma Action Plan, Acute Severe Asthma Prescriptions: New albuterol sulfate [Ventolin HFA] 90 mcg/actuation HFA aerosol inhaler 2 puff inhalation Q4H PRN PRN (Reason: Wheezing/SOB) Qty: 1 2RF ipratropium-albuterol 0.5 mg-3 mg(2.5 mg base)/3 mL solution for nebulization 3 ml inhalation Q6H PRN (Reason: shortness of breath or wheezing) Qty: 180 2RF Combivent Respimat 20-100 mcg/actuation mist 1 puff inhalation Q6H Qty: 4 2RF Breztri Aerosphere 160-9-4.8 mcg/actuation HFA aerosol inhaler 2 inh inhalation BID Qty: 10.7 0RF prednisone 20 mg tablet 40 mg PO DAILY 7 Days Qty: 14 0RF No Action albuterol sulfate [Ventolin HFA] 90 mcg/actuation HFA aerosol inhaler 2 puff inhalation Q6H PRN (Reason: shortness of breath or wheezing) Qty: 8 0RF nicotine 21 mg/24 hr patch 24 hour 1 patch transdermal Q24H Qty: 28 0RF nicotine (polacrilex) 4 mg lozenge 4 mg buccal Q8H PRN (Reason: nicotine cravings) Qty: 24 0RF Breztri Aerosphere 160-9-4.8 mcg/actuation HFA aerosol inhaler 2 inh inhalation BID Qty: 10.7 5RF ipratropium-albuterol 0.5 mg-3 mg(2.5 mg base)/3 mL solution for nebulization 3 ml inhalation Q6H PRN (Reason: shortness of breath/Wheeze) Qty: 180 1RF Combivent Respimat 20-100 mcg/actuation mist 1 puff inhalation Q6H PRN (Reason: shortness of breath or wheezing) Qty: 4 1RF Stand Alone Forms: ED Work / School Excuse Primary Care Provider: Cintia Sorenson Referrals: Cintia Sorenson MD [Primary Care Provider] - Activity Restrictions/Additional Instructions: Your x-ray showed no pneumonia. Your COVID influenza and RSV swab were negative. The labs revealed no clinically significant findings. Your history and exam and negative workup indicate you had an asthma exacerbation. Please take the prescribed medications as directed to help control symptoms and return to the ER should you have any further concerns. Print Language: Polish Disposition Disposition: Home, Self Care Discharge Date/Time: 10/16/24 04:07
== END 2024-10-16 04:07 | disposition home or self-care (01) ==
PROVIDERS: Emergency Provider Emergency Medicine; PCP Internal Medicine; Visit Provider Emergency Medicine
DX: J45.901 Unspecified asthma with (acute) exacerbation (principal); R09.02 Hypoxemia; K21.9 Gastro-esophageal reflux disease without esophagitis; Z88.2 Allergy status to sulfonamides; Z88.1 Allergy status to other antibiotic agents; Z86.14 Personal history of Methicillin resistant Staphylococcus aureus infection; Z79.51 Long term (current) use of inhaled steroids; Z87.891 Personal history of nicotine dependence
CPT/HCPCS: 36600; 71045; 80048; 82803; 83735; 83880; 85025; 87631; 94002; 94640; 96374; 99284; A4216

== ENCOUNTER 2025-09-17 22:48 | Emergency (ER) | payer OTHER, SELFPAY ==
[2025-09-17 22:49] VITALS: BP 141/94; PULSE 86; RESP 17; TEMP 36.7; O2SAT 100; BMI 29.2
--- NOTE | 2025-09-17 23:04 | RAD_ITS ---
PROCEDURE: LEFT WRIST MIN 3 VIEWS; FOREARM 2 VIEWS 09/17/2025 REASON FOR EXAM: PAIN TECHNIQUE: Procedure Code: RADWR; RADFA Modality: DX Procedure: WRIST MIN 3 VIEWS; FOREARM 2 VIEWS COMPARISON: None. FINDINGS: No acute fracture or dislocation. Alignment is anatomic. Preserved visualized joint spaces. No aggressive osseous lesion. No marked soft tissue swelling or radiopaque foreign body. RAD/Forearm 2 Views IMPRESSION: No acute fracture or dislocation. Reading Location: [id number]
--- NOTE | 2025-09-17 23:04 | RAD_ITS ---
PROCEDURE: LEFT WRIST MIN 3 VIEWS; FOREARM 2 VIEWS 09/17/2025 REASON FOR EXAM: PAIN TECHNIQUE: Procedure Code: RADWR; RADFA Modality: DX Procedure: WRIST MIN 3 VIEWS; FOREARM 2 VIEWS COMPARISON: None. FINDINGS: No acute fracture or dislocation. Alignment is anatomic. Preserved visualized joint spaces. No aggressive osseous lesion. No marked soft tissue swelling or radiopaque foreign body. RAD/Wrist min 3 Views IMPRESSION: No acute fracture or dislocation. Reading Location: [id number]
--- OUTSIDE RECORDS SUMMARY | 2025-09-17 23:05 | XMS RPT_ITS | CCD ---
Author Organization [facility] Care Team Providers Care Burglar Alarm Installer Name Role Phone PHYSICIAN, NONE Primary Care Physician Unavailab Dr. Jenny Elena Primary Care Provider Dr. Jenny Sorenson Referring Provider [phone] RUBIN Bolanos Attending Provider Dr. Jenny Sorenson MD Primary Care Provider [phone] Delta BRITO, Dr. Chamberlain Attending Provider Dr. Jenny Sorenson MD Referring Provider [place], Jenny Referring Unavailable Delta, Jenny Attending Unavailable Delta, Jenny Primary Care Unavailable [place], Jenny Primary Care Unavailable [place], Jenny Referring Unavailable [place], Jenny Attending Unavailable [place], Jenny Primary Care Unavailable [place], Jenny Referring Unavailable [place], Jenny Attending Unavailable Delta, Jenny Referring Unavailable [place], Jenny Attending Unavailable Delta, Jenny Primary Care Unavailable [place], Jenny Primary Care Unavailable SachaesLowin Attending Unavailable [place], Jenny Primary Care Unavailable Pankaj Nolasco Attending Unavailable PROVIDER, UNKNOWN Attending Unavailable PROVIDER, UNKNOWN Admitting Unavailable DELTA, JENNY Referring Unavailable Allergies Allergy Classification Reported Allergen(s) Allergy Type Date of Onset Reaction(s) Facility (1 source) peanut Food allergy Rash [facility] (2 sources) Seafood Food allergy 02-16-20 Rash, Angioedema [facility] (1 source) Sulfamethoxazole / Trimethoprim; Translations: [sulfamethoxazole-tr imethoprim] Drug Allergy Rash [facility] (1 source) Nuts (not including peanuts) Allergy to substance 02-16-20 Angioedema [facility] Work Phone: (4 sources) Shellfish; Translations: [shellfish derived] Allergy to substance 09-13-20 Anaphylaxis [facility] Comment on above: FROM SEAFOOD ALLERGY (3 sources) Sulfamethoxazole Drug Allergy 05-17-20 Rash [facility] (3 sources) Trimethoprim Drug Allergy 05-17-20 [facility] (3 sources) Fish Containing Products Allergy to substance 09-13-20 Anaphylaxis [facility] Comment on above: FROM SEAFOOD ALLERGY (4 sources) nut - unspecified; Translations: [nut - unspecified] Allergy to substance 08-22-20 Anaphylaxis [facility] Comment on above: ANGIOEDEMA (1 source) Sulfamethoxazole Drug Allergy 03-15-20 25 [facility] Repository (1 source) Trimethoprim Drug Allergy 03-15-20 25 [facility] Repository (1 source) Fish Containing Products Drug allergy (disorder) 03-15-20 [facility] Repository Medications Current Medications Medication Drug Class(es) Dates Sig (Normalized) Sig (Original) [id number] actuat albuterol 0.09 mg/actuat metered dose inhaler (20 sources) beta2-Adrenergic Agonist Start: 10-16-2024 End: 02-19-2025 Albuterol Sulfate (Ventolin Hfa) 90 mcg/actuation HFA aerosol inhaler Active 2 NMA INHALATION EVERY 4 HOURS NEEDED as needed for Wheezing/SOB February 19, 2025 3:59pm Start: 01-22-2023 End: 07-22-2024 Albuterol Sulfate (Ventolin Hfa) 90 mcg/actuation HFA aerosol inhaler Active 2 NMA INHALATION EVERY 6 HOURS as needed for shortness of breath or wheezing July 22, 2024 2:29pm Start: 01-22-2023 End: 10-11-2023 take 1 puff(s) by inhalation every six hours Albuterol Sulfate (Ventolin Hfa) 90 mcg/actuation HFA aerosol inhaler Active 2 PUFF INHALATION EVERY 6 HOURS October 11, 2023 10:39am Start: 10-21-2019 End: 04-16-2022 take 2.5 mg by inhalation every four hours as needed for wheezing Albuterol Sulfate 2.5 MG/3 ML solution for nebulization Discontinued 2.5 mg INHALATION EVERY 4 HOURS NEEDED October 21, 2019 1:00am April 16, 2022 10:05am Use q4 hours and PRN for wheezing Start: 10-21-2019 End: 01-22-2023 Albuterol Sulfate 90 mcg/act uation HFA aerosol inhaler Discontinued 2 NMA INHALATION EVERY 4 HOURS NEEDED as needed for Wheezing May 17, 2022 10:30am January 22, 2023 5:08pm Start: 10-21-2019 End: 01-22-2023 take 1 puff(s) by inhalation every four hours as needed Albuterol Sulfate Discontinued 2 PUFF INHALATION EVERY 4 HOURS NEEDED 1 May 17, 2022 9:30am January 22, 2023 4:08pm Start: 07-01-2018 End: 09-16-2018 Albuterol Sulfate 90 mcg/act uation HFA aerosol inhaler Discontinued 2 NMA INHALATION Q8H as needed for Asthma 8.5 July 01, 2018 8:52am September 16, 2018 2:30pm Start: 07-01-2018 End: 09-16-2018 take 1 puff(s) by inhalation every eight hours Albuterol Sulfate Discontinued 2 PUFF INHALATION Q8H 8.5 July 01, 2018 7:52am September 16, 2018 1:30pm Start: 07-01-2018 End: 09-16-2018 take 1 puff(s) by inhalation every eight hours Albuterol Sulfate Discontinued 2 PUFF INHALATION Q8H 8.July 01, 2018 8:52am September 16, 2018 2:30pm Start: 07-01-2018 End: 07-01-2018 Albuterol Sulfate 90 mcg/act uation HFA aerosol inhaler Discontinued 2 NMA INHALATION Q8H as needed for Asthma July 01, 2018 8:52am July 01, 2018 8:53am Start: 07-01-2018 End: 07-01-2018 take 1 puff(s) by inhalation every eight hours Albuterol Sulfate Discontinued 2 PUFF INHALATION Q8H July 01, 2018 7:52am July 01, 2018 7:53am Start: 07-01-2018 End: 07-01-2018 take 1 puff(s) by inhalation every eight hours Albuterol Sulfate Discontinued 2 PUFF INHALATION Q8H July 01, 2018 8:52am July 01, 2018 8:53am Start: 07-01-2018 End: 07-01-2018 Albuterol Sulfate 90 mcg/act uation HFA aerosol inhaler Discontinued 2 NMA INHALATION EVERY 6 HOURS NEEDED as needed for Asthma July 01, 2018 8:51am July 01, 2018 8:52am Start: 07-01-2018 End: 07-01-2018 take 1 puff(s) by inhalation every six hours as needed Albuterol Sulfate Discontinued 2 PUFF INHALATION EVERY 6 HOURS NEEDED July 01, 2018 7:51am July 01, 2018 7:52am Start: 07-01-2018 End: 07-01-2018 take 1 puff(s) by inhalation every six hours as needed Albuterol Sulfate Discontinued 2 PUFF INHALATION EVERY 6 HOURS NEEDED July 01, 2018 8:51am July 01, 2018 8:52am Start: 08-02-2014 take 2 puff(s) by in halation four times daily Ventolin HFA 2 puff(s), Inhalation, QID Start Date: 08/02/14 Status: Ordered Start: 03-27-2014 End: 07-01-2018 take 1 puff(s) by inhalation every six hours as needed Albuterol Sulfate Discontinued 1 PUFF INHALATION EVERY 6 HOURS NEEDED March 27, 2014 10:17pm July 01, 2018 8:52am Start: 03-27-2014 End: 07-01-2018 Albuterol Sulfate 1 INHALER inhaler Discontinued 1 NMA INHALATION EVERY 6 HOURS NEEDED as needed for Asthma March 27, 2014 12:00am July 01, 2018 8:52am Start: 03-27-2014 End: 07-01-2018 take 1 puff(s) by inhalation every six hours as needed Albuterol Sulfate Discontinued 1 PUFF INHALATION EVERY 6 HOURS NEEDED March 26, 2014 11:00pm July 01, 2018 7:52am Upqeporbop-Acqpksks-Sxcmgste ol (11 sources) Corticosteroid, beta2-Adrenergic Agonist Start: 03-15-2025 Wjzunwlksz-Kukcmsix-Ajfiewhb ol (Breztri Aerosphere) 160-9-4.8 mcg/actuation HFA aerosol inhaler Active 2 NMA INHALATION TWICE A DAY 10.7 March 15, 2025 12:02pm Start: 10-16-2024 End: 03-15-2025 Swusbibbjm-Vsuzbray-Anhlmvgc ol (Breztri Aerosphere) 160-9-4.8 mcg/actuation HFA aerosol inhaler Discontinued 2 NMA INHALATION TWICE A DAY 10.7 October 16, 2024 1:00am March 15, 2025 12:05pm Start: 07-22-2024 End: 10-26-2024 Temiridzie-Agnvplus-Nrsfpwdh ol (Breztri Aerosphere) 160-9-4.8 mcg/actuation HFA aerosol inhaler Discontinued 2 NMA INHALATION TWICE A DAY 10.7 July 22, 2024 2:31pm October 26, 2024 9:12am Start: 10-11-2023 End: 07-22-2024 Vwoommmsqn-Nhemuzlg-Sweyoobr ol (Breztri Aerosphere) 160-9-4.8 mcg/actuation HFA aerosol inhaler Discontinued 2 NMA INHALATION TWICE A DAY 10.7 October 11, 2023 11:47am July 22, 2024 2:39pm Start: 10-11-2023 Budesonide-Gly copyr-Formoterol (Breztri Aerosphere) 160-9-4.8 mcg/actuation HFA aerosol inhaler Active 2 INH INHALATION TWICE A DAY 10.7 October 11, 2023 10:47am Start: 05-17-2022 End: 10-11-2023 Cnpukselkh-Nvhcbghz-Opngzwvw ol (Breztri Aerosphere) 160-9-4.8 mcg/actuation HFA aerosol inhaler Discontinued 2 NMA INHALATION TWICE A DAY 10.7 May 17, 2022 10:13am October 11, 2023 11:59am Start: 05-17-2022 End: 10-11-2023 Aefxpteiqb-Ombpkvqo-Vldglzzy ol (Breztri Aerosphere) 160-9-4.8 mcg/actuation HFA aerosol inhaler Discontinued 2 INH INHALATION TWICE A DAY 10.7 May 17, 2022 9:13am October 11, 2023 10:59am Start: 05-17-2022 Budesonide-Gly copyr-Formoterol (Breztri Aerosphere) 160-9-4.8 mcg/actuation HFA aerosol inhaler Active 2 INH INHALATION TWICE A DAY 10.7 May 17, 2022 9:13am Start: 04-16-2022 End: 05-17-2022 Qbvpmfzcao-Skwmtaqs-Wjxajotw ol (Breztri Aerosphere) 160-9-4.8 mcg/actuation HFA aerosol inhaler Discontinued 2 NMA INHALATION TWICE A DAY April 16, 2022 12:00am May 17, 2022 10:31am Start: 04-16-2022 End: 05-17-2022 Pkhexxyunp-Xnqwbgow-Lheirtpy ol (Breztri Aerosphere) 160-9-4.8 mcg/actuation HFA aerosol inhaler Discontinued 2 INH INHALATION TWICE A DAY April 15, 2022 11:00pm May 17, 2022 9:31am 24 hr nicotine 0.292 mg/hr transdermal system (3 sources) Cholinergic Nicotinic Agonist Start: 10-26-2024 Nicotine 7 mg/24 hr patch 24 hour Active 1 NMA TD Q24H October 26, 2024 9:12am Start: 07-22-2024 Nicotine (Lebron crilex) 4 mg lozenge Active 4 mg BUCCAL Q8H as needed for nicotine cravings July 22, 2024 12:00am Start: 07-22-2024 End: 10-26-2024 apply 1 dose transdermal route every twenty-four hours Nicotine 21 mg/24 hr patch 24 hour Discontinued 1 NMA TD Q24H July 22, 2024 12:00am October 26, 2024 9:13am omeprazole 10 mg delayed release oral capsule (1 source) Proton Pump Inhibitor Start: 08-02-2014 PriLOSEC 10 mg oral delayed release capsule (NF) Dose : 10 mg = 1 cap(s), Oral, qDay, 0 Refill(s) Start Date: 08/02/14 Status: Ordered predniSONE 10 mg oral tablet (11 sources) Start: 03-15-2025 take 4 tablets by mouth once daily, then take 3 tablets by mouth once daily, then take 2 tablets by mouth once daily, then take 1 tablet by mouth once daily, then take 5 mg by mouth once daily Prednisone 10 mg tablet Active 0 PO daily March 15, 2025 12:00am orally daily; take 40mg daily for 3 days, then 30mg daily for 3 days, then 20mg daily for 3 days, 10mg daily for 3 days then 5mg daily for 2 days and stop Start: 10-16-2024 End: 12-14-2024 take 2 tablets by mouth once daily Prednisone 20 mg tablet Discontinued 40 mg PO DAILY 07 11December 09, 2024 4:57pm December 13, 2024 1:00am December 14, 2024 12:13am To use at the onset of a flare up Start: 09-21-2024 End: 10-16-2024 take 4 tablets by mouth once daily, then take 3 tablets by mouth once daily, then take 2 tablets by mouth once daily, then take 1 tablet by mouth once daily, then take 1 tablet by mouth every other day Prednisone 10 mg tablet Discontinued 10 mg PO DIRECTED September 21, 2024 1:00am October 16, 2024 3:47am Take 4 tablets daily for 3 days, then 3 daily for 3 days, then 2 daily for 3 days, then 1 a day for 3 days then 1 QOD for 3 doses. Start: 10-11-2023 End: 07-22-2024 take 1 tablet by mouth twice daily Prednisone 10 mg tablet Discontinued 10 mg PO TWICE A DAY October 11, 2023 11:47am July 22, 2024 2:01pm Start: 04-16-2022 End: 10-11-2023 take 1 tablet by mouth once daily Prednisone 10 mg tablet Discontinued 10 mg PO DAILY January 22, 2023 5:00pm October 11, 2023 11:59am salicylic acid 0.4 mg/mg medicated patch (1 source) Start: 10-26-2024 Salicylic Acid ([place] Remover) 40 % adhesive patch,medicated Active 1 NMA TOPICAL Q48H October 26, 2024 1:00am Completed/Discontinued Medications Medication Drug Class(es) Dates Sig (Normalized) Sig (Original) acetaminophen 325 mg / HYDROcodone bitartrate 5 mg oral tablet (4 sources) Opioid Agonist Start: 04-29-2018 End: 07-01-2018 Hydrocodone-Acetami nophen 1 TABLET tablet Discontinued 1 {tbl} PO EVERY 6 HOURS NEEDED as needed for Pain 10 April 29, 2018 12:00am July 01, 2018 8:33am Start: 04-29-2018 End: 07-01-2018 take 1 tablet by mouth every six hours as needed Hydrocodone-Acetaminophen Discontinued 1 TABLET PO EVERY 6 HOURS NEEDED 10 April 28, 2018 11:00pm July 01, 2018 7:33am acetaminophen 325 mg / oxyCODONE hydrochloride 5 mg oral tablet (8 sources) Opioid Agonist Start: 05-17-2014 End: 10-25-2014 Oxycodone-Acetaminophen 1 TABLET tablet Discontinued 1 - 2 {tbl} PO EVERY 4 HOURS NEEDED as needed for Pain July 18, 2014 12:00am October 23, 2014 1:16pm Start: 05-17-2014 End: 10-25-2014 take 1 tablet by mouth every four hours as needed Oxycodone-Acetaminophen Discontinued 1 - 2 TABLET PO EVERY 4 HOURS NEEDED July 17, 2014 11:00pm October 23, 2014 12:16pm 120 actuat albuterol 0.1 mg/actuat / ipratropium bromide 0.02 mg/actuat inhalation spray (5 sources) Anticholinergic, beta2-Adrenergic Agonist Start: 09-21-2024 End: 10-26-2024 take 1 mL by inhalation every six hours as needed for wheezing Ipratropium-Albuterol 0.5 mg-3 mg(2.5 mg base)/3 mL solution for nebulization Active 3 mL INHALATION EVERY 6 HOURS as needed for shortness of breath or wheezing 180 October 16, 2024 4:53am Start: 09-21-2024 End: 03-15-2025 take 20-100 ug by inhalation every six hours Ipratropium-Albuterol (Combivent Respimat) 20-100 mcg/actuation mist Discontinued 1 NMA INHALATION EVERY 6 HOURS October 16, 2024 1:00am October 26, 2024 9:12am chlorhexidine gluconate 40 mg/ml medicated liquid soap (4 sources) Start: 03-05-2018 End: 07-01-2018 Chlorhexidine Gluconate 118 ML liquid Discontinued 237 mL TP EVERY WEEK March 05, 2018 12:00am July 01, 2018 8:33am cyclobenzaprine hydrochloride 5 mg oral tablet (2 sources) Muscle Relaxant Start: 01-22-2023 End: 10-11-2023 take 1 tablet by mouth at bedtime as needed for muscle spasms Cyclobenzaprine 5 mg tablet Discontinued 5 mg PO AT BEDTIME as needed for muscle spasm January 22, 2023 12:00am October 11, 2023 11:19am doxycycline hyclate 100 mg oral capsule (2 sources) Tetracycline-class Drug Start: 10-11-2023 End: 07-22-2024 take 1 capsule by mouth twice daily Doxycycline Hyclate 100 mg capsule Discontinued 100 mg PO TWICE A DAY October 11, 2023 1:00am July 22, 2024 1:56pm esomeprazole 40 mg delayed release oral capsule (4 sources) Proton Pump Inhibitor Start: 03-27-2014 End: 10-25-2014 take 1 capsule by mouth once daily Esomeprazole Magnesium (Nexium) 40 MG capsule Discontinued 40 mg PO DAILY March 27, 2014 12:00am October 25, 2014 3:15pm 120 actuat fluticasone propionate 0.22 mg/actuat metered dose inhaler (4 sources) Corticosteroid Start: 11-13-2017 End: 07-01-2018 Fluticasone Propionate 220 HFA aerosol inhaler Discontinued 2 NMA INHALATION TWICE A DAY November 13, 2017 1:00am July 01, 2018 8:52am Start: 11-13-2017 End: 07-01-2018 take 1 puff(s) by inhalation twice daily Fluticasone Propionate Discontinued 2 PUFF INHALATION TWICE A DAY November 13, 2017 12:00am July 01, 2018 7:52am hydrocortisone 25 mg/ml topical cream (4 sources) Corticosteroid Start: 07-18-2014 End: 10-25-2014 Hydrocortisone 1 APPLIC Tube Discontinued 1 NMA TOPICAL 3 TIMES DAILY NEEDED as needed for Itching July 18, 2014 10:31pm October 25, 2014 3:15pm Start: 07-18-2014 End: 10-25-2014 Hydrocortisone Discontinued 1 APPLIC TOPICAL 3 TIMES DAILY NEEDED July 18, 2014 9:31pm October 25, 2014 2:15pm metroNIDAZOLE 500 mg oral tablet (4 sources) Nitroimidazole Antimicrobial Start: 10-23-2014 End: 10-25-2014 take 1 tablet by mouth every eight hours Metronidazole 500 MG tablet Discontinued 500 mg PO Q8H October 23, 2014 1:00am October 25, 2014 3:16pm Nirmatrelvir-Ritona vir (Paxlovid) 300 mg (150 mg x 2)-100 mg tablets,dose pack (2 sources) Start: 10-11-2023 End: 07-22-2024 Nirmatrelvir-Riton avir (Paxlovid) 300 mg (150 mg x 2)-100 mg tablets,dose pack Discontinued 0 PO .COMPLEX October 11, 2023 1:00am July 22, 2024 1:57pm take TWO 150 mg tablets of nirmatrelvir with ONE 100 mg tablet of ritonavir twice daily for 5 days PO Start: 10-11-2023 Nirmatrelvir-R itonavir (Paxlovid) 300 mg (150 mg x 2)-100 mg tablets,dose pack Active 0 PO .COMPLEX October 11, 2023 12:00am take TWO 150 mg tablets of nirmatrelvir with ONE 100 mg tablet of ritonavir twice daily for 5 days PO pantoprazole 40 mg delayed release oral tablet (4 sources) Proton Pump Inhibitor Start: 08-30-2020 End: 04-16-2022 take 1 tablet by mouth once daily Pantoprazole 40 MG tablet Discontinued 40 mg PO DAILY August 30, 2020 1:00am April 16, 2022 10:05am polymyxin b [id number] unt/ml / trimethoprim 1 mg/ml ophthalmic solution (2 sources) Dihydrofolate Reductase Inhibitor Antibacterial, Polymyxin-class Antibacterial Start: 10-11-2023 End: 07-22-2024 Polymyxin B Sulf-Trimethoprim 10,000 unit- 1 mg/mL drops Discontinued 1 NMA OPHTHALMIC Q3H October 11, 2023 1:00am July 22, 2024 1:56pm while awake; do not exceed 6 doses in 24 hours Problems Active Problems Problem Classification Problem Date Documented Date Episodic/Chronic Asthma (11 sources) Asthma; Translations: [Unspecified asthma, uncomplicated] Onset: 03-15-2025 08-02-2014 Chronic Asthma (1 source) Asthma Bacterial infection; unspecified site (4 sources) History of methicillin resistant Staphylococcus aureus infection; Translations: [Personal history of Methicillin resistant Staphylococcus aureus infection] 04-16-2022 Episodic Moreno (16 sources) Epidermal burn of right hand; Translations: [Burn of first degree of right hand, unspecified site, initial encounter] 02-24-2022 Episodic Chronic obstructive pulmonary disease and bronchiectasis (3 sources) Acute exacerbation of chronic obstructive airways disease with asthma; Translations: [Chronic obstructive pulmonary disease with (acute) exacerbation] 10-11-2023 Chronic Esophageal disorders (7 sources) Acid reflux; Translations: [Gastroesophageal reflux disease] 08-02-2014 Chronic Inflammation; infection of eye (except that caused by tuberculosis or sexually transmitteddisease) (3 sources) Bacterial conjunctivitis; Translations: [Unspecified conjunctivitis] 10-11-2023 Episodic Noninfectious gastroenteritis (4 sources) Non-specific colitis; Translations: [Noninfective gastroenteritis and colitis, unspecified] 04-16-2022 Episodic Nonspecific chest pain (4 sources) Atypical chest pain 04-16-2022 Episodic Other non-traumatic joint disorders (3 sources) Pain in left knee; Translations: [Left knee pain] 05-16-2022 Episodic Other screening for suspected conditions (not mental disorders or infectious disease) (4 sources) Patient encounter status; Translations: [Encounter for screening for malignant neoplasm of respiratory organs] Onset: 07-22-2024 03-15-2025 Episodic Other skin disorders (3 sources) Epidermoid cyst of skin of cheek; Translations: [Epidermal cyst] 04-16-2022 Episodic Other skin disorders (1 source) Austin - lesion ; Translations: [Corns and callosities] 03-15-2025 Episodic Other skin disorders (1 source) Corns and callosities; Translations: [Corns and callosities] Onset: 03-15-2025 Episodic Other upper respiratory infections (3 sources) Acute upper respiratory infection; Translations: [Acute upper respiratory infection, unspecified] 10-11-2023 Episodic Pancreatic disorders (not diabetes) (4 sources) Acute pancreatitis; Translations: [Acute pancreatitis without necrosis or infection, unspecified] 04-16-2022 Episodic Residual codes; unclassified (3 sources) History of adenoidectomy; Translations: [Acquired absence of other organs] 04-16-2022 Episodic Residual codes; unclassified (1 source) Family history of prostate cancer; Translations: [Family history of malignant neoplasm of prostate] 03-15-2025 Episodic Residual codes; unclassified (1 source) Trying to give up smoking; Translations: [Tobacco use] 03-15-2025 Episodic Substance-related disorders (5 sources) Smoker; Translations: [Nicotine dependence, unspecified, uncomplicated] Onset: 04-14-2025 04-16-2022 Chronic Superficial injury; contusion (1 source) Contusion of knee; Translations: [Contusion of left knee, initial encounter] Onset: 10-10-2021 Episodic Unclassified (2 sources) [place] of foot; Translations: [L84 - Corns and callosities] Past or Other Problems Problem Classification Problem Date Documented Da te Episodic/Chronic Other lower respiratory disease (1 source) Shortness of breath; Translations: [Shortness of breath] Onset: 11-20-2024 Episodic Residual codes; unclassified (1 source) Family history of malignant neoplasm of prostate; Translations: [Family history of malignant neoplasm of prostate] Onset: 11-20-2024 Episodic Residual codes; unclassified (1 source) Tobacco use; Translations: [Tobacco use] Onset: 11-20-2024 Episodic Results Test Name Value Interpretation Reference Range Facility CT CHEST LOW DOSE LUNG CANCE R SCREENINGon 04-15-2025 CT CHEST LOW DOSE LUNG CANCER SCREENING Addendum Begins Addendum: There is also mild bronchial wall thickening suggestive of mild bronchitis. Addendum Ends EXAMINATION: CT CHEST LOW DOSE LUNG CANCER SCREENING 04/14/2025 01:00 PM CLINICAL HISTORY: screening for malignant neoplasm of respiratory organs, Clinical History: = No signs or symptoms of lung cancer, Purpose of Study: = Initial screening, Smoking Status: = Current smoker, Smoking Pack Years: = 40 ASSOCIATED DIAGNOSIS: Cigarette nicotine dependence, uncomplicated ORDERING PROVIDER: JENNY SORENSON TECHNOLOGISTS NOTE: COMPARISON: None TECHNIQUE: Contiguous axial images were obtained from above the lung apices through the level of the adrenal glands using a low dose technique. 2D sagittal and coronal reconstructions were obtained from the axial data. FINDINGS: Evaluation of the mediastinum, soft tissues and upper abdomen is limited by the low dose technique. Nodules: * Solid left upper lobe pulmonary nodule with mean diameter of 4.5 mm (Series 4, Image 148). * Additional scattered sub-4 mm pulmonary nodules, solid 3.5 mm right upper lobe nodule (Series 4, Image 106). Mediastinum: Diffuse nonspecific esophageal wall thickening. Lymph nodes: No supraclavicular, axillary, or mediastinal lymphadenopathy. Evaluation of hilar lymph nodes is limited without contrast. Cardiovasculature: No cardiac enlargement. Lungs: The lungs are well inflated without evidence for effusion or pneumothorax. Bibasilar atelectasis; otherwise no focal consolidation. Visualized musculoskeletal structures: Degenerative disc disease is present with endplate spurring. No acute fracture or destructive osseous lesion. Included images of the upper abdomen: Pancreatic tail calcifications compatible with chronic pancreatitis. IMPRESSION: 1. Scattered sub-6 mm solid nodules at baseline. Lung-RADS Category 2 (Benign based on imaging features or indolent behavior). Continued annual screening in [address] CHEST LOW DOSE LUNG CANCER SCREENING (Code: KEEH359) is recommended. 2. Diffuse nonspecific esophageal wall thickening, possibly sequela of gastroesophageal reflux disease. 3. Ancillary findings as above. MACRO: None I have personally reviewed the images and agree with the resident's interpretation. Normal [facility] Internal Medicine Office Vis itoloree 03-11-2025 Internal Medicine Office Visit [facility] [address] [facility] [place] [address] OFFICE VISIT Date of Service: 03/15/25 MR#: [id number] Acct: [id number] Name: ANYI MOREJON Rep #: [id number] : 1970 Provider: Dr. Jenny ferrera MD Age/Sex: 54/M Location: [facility] Status: Signed Intake Vital Signs 10/26/24 07:41 03/15/25 11:29 Height 5 ft 9 in 5 ft 9 in Weight: 189 lb 6 oz BMI 27.9 BP 118/72 Blood Pressure Location Rt brachial Position Sitting Respiration 20 H Pulse 96 Pulse Source Monitor Temp 97.1 F L Temp Source Temporal Pulse Oximetry (%) 92 Oxygen Delivery Method room air Intake Visit Reasons: ISSUES WITH LUNGS / WANTS MAINT INHALER BACK Chief Complaint: needs inhaler Paster Hat Lining Required: No Accompanied by: Self Is patient in pain?: No Allergies Fish Containing Products Allergy (Severe, Verified 03/15/25 11:28) Anaphylaxis nut - unspecified (nuts) Allergy (Severe, Verified 03/15/25 11:28) Anaphylaxis shellfish derived Allergy (Severe, Verified 03/15/25 11:28) Anaphylaxis sulfamethoxazole (From Bactrim) Allergy (Mild, Verified 03/15/25 11:28) Rash trimethoprim (From Bactrim) Allergy (Mild, Verified 03/15/25 11:28) Rash Medications ???Medication ???Instructions ???Recorded ???Confirmed ???Type Ventolin HFA 90 mcg/actuation 2 puff inhalation Q6H PRN 07/22/24 03/15/25 Rx aerosol inhaler (albuterol sulfate) shortness of breath or wheezing #8 grams nicotine (polacrilex) 4 mg buccal 4 mg buccal Q8H PRN nicotine 10/03/3003/15/25 Rx lozenge cravings #24 ea nicotine 7 mg/24 hr daily 1 patch transdermal Q24H #14 ea 03/15/25 Rx transdermal patch salicylic acid 40 % topical patch 1 applic topical Q48H #6 ea 10/2603/15/25 Rx ([place] Remover) albuterol sulfate 90 mcg/actuation 2 puff inhalation Q4H PRN PRN 03/15/25 Rx aerosol inhaler (Ventolin HFA) Wheezing/SOB #1 device budesonide 160 mcg-glycopyr 9 2 inh inhalation BID #10.7 grams 0 03/15/25 03/15/25 Rx mcg-formot 4.8 mcg/actuation HFA inhaler (Breztri Aerosphere) ipratropium 0.5 mg-albuterol 3 mg 3 ml inhalation Q6H PRN shortness 03/15/25 03/15/25 Rx (2.5 mg base)/3 mL nebulization of breath or wheezing #180 mL soln prednisone 10 mg tablet See Rx Instructions PO QDAY #31 03/15/25 Rx tabs Have you fallen in the past year?: No PFSH Medical History COVID C. difficile diarrhea Epidermoid cyst of skin of cheek Smoker Asthma History of MRSA infection Esophageal reflux Surgical History S/P lens implant H/O removal of cyst H/O adenoidectomy Hx of tonsillectomy Family History Father Prostate cancer Mother Asthma Grandmother Skin cancer Grandfather Colon cancer Uncle Leukemia Sister Leukemia Sister Diabetes Myocardial infarction Social History household members: none housing: house current occupational status: employed current occupation: [employer] Smoking Status: Former smoker Tobacco: How many years used: 40 quit status: considering quitting alcohol intake: current alcohol intake frequency: holidays/special occasions only details: Socially/Holidays Only substance use type: marijuana what type of physical activity do you participate in: walking do you feel safe at home: Yes HPI HPI Chief Complaint: needs inhaler Details: ANYI MOREJON, is a 54 M who presents to the office today for a follow up.??? He is up to date on his routine blood work.??? He believes he is up to date on his colonoscopy.??? He isn't due for any immunizations.??? He is a smoker, but is very close to quitting entirely. He states he will have one cigarette every couple of weeks. He does need refills today.??? He reports he still isn't eating very healthy overall.??? He reports his activity is limited. He reports his breathing has been getting worse. He states he has been struggling for the last couple of weeks. In October, he was told by the pharmacy that they were not going to fill the breztri because of a drug-drug interaction and he has been off the medication since then. Currently, he has been using combivent and nebulizers. He states the breztri was working, however. He states he just can't breathe. He reports he has been running through albuterol inhalers constantly, using one every 3-4 days. He states he went to an urgent care a couple of months ago and was told he had RSV. He states prednisone does open him up, but it doesn't last when he runs out. He states he is now willing to get established with pulmonology. At his last office visit, (more content not included)... Normal [facility] Internal Medicine Office Vis darlene 10-22-2024 Internal Medicine Office Visit [facility] [address] [place] [address] [address] [place] [address] OFFICE VISIT Date of Service: 10/26/24 MR#: [id number] Acct: [id number] Name: ANYI MOREJON Rep #: [id number] : 1970 Provider: Dr. Jenny ferrera MD Age/Sex: 54/M Location: [facility] Status: Signed Intake Vital Signs 09/21/24 03:01 10/16/24 01:30 10/26/24 07:41 Height 5 ft 9 in 5 ft 9 in 5 ft 9 in Weight: 203 lb BMI 29.9 BP 110/64 Blood Pressure Location Lt brachial Position Sitting Respiration 16 Pulse 92 Pulse Source Monitor Temp 98.5 F Temp Source Temporal Pulse Oximetry (%) 95 Oxygen Delivery Method room air Intake Visit Reasons: FOOT PAIN Chief Complaint: FOOT PAIN Is patient in pain?: Yes (RIGHT FOOT) Pain scale (1-10): 8 Allergies Fish Containing Products Allergy (Severe, Verified 10/26/24 07:38) Anaphylaxis nut - unspecified (nuts) Allergy (Severe, Verified 10/26/24 07:38) Anaphylaxis shellfish derived Allergy (Severe, Verified 10/26/24 07:38) Anaphylaxis sulfamethoxazole (From Bactrim) Allergy (Mild, Verified 10/26/24 07:38) Rash trimethoprim (From Bactrim) Allergy (Mild, Verified 10/26/24 07:38) Rash Medications ???Medication ???Instructions ???Recorded ???Confirmed ???Type Ventolin HFA 90 mcg/actuation 2 puff inhalation Q6H PRN 07/22/24 10/26/24 Rx aerosol inhaler (albuterol sulfate) shortness of breath or wheezing #8 grams nicotine (polacrilex) 4 mg buccal 4 mg buccal Q8H PRN nicotine 07/22/24 10/26/24 Rx lozenge cravings #24 ea albuterol sulfate 90 mcg/actuation 2 puff inhalation Q4H PRN PRN 10/16/24 10/26/24 Rx aerosol inhaler (Ventolin HFA) Wheezing/SOB #1 device budesonide 160 mcg-glycopyr 9 2 inh inhalation BID #10.7 grams 10/16/24 10/26/24 Rx mcg-formot 4.8 mcg/actuation HFA inhaler (Breztri Aerosphere) ipratropium 0.5 mg-albuterol 3 mg 3 ml inhalation Q6H PRN shortness 10/16/24 10/26/24 Rx (2.5 mg base)/3 mL nebulization of breath or wheezing #180 mL soln prednisone 20 mg tablet 40 mg (2 x 20 mg) PO DAILY 7 days 10/16/24 10/26/24 Rx #14 tabs ipratropium 20 mcg-albuterol 100 1 puff inhalation Q6H PRN 10/26/24 10/26/24 Rx mcg/actuation mist for inhalation shortness of breath or wheezing #4 (Combivent Respimat) grams nicotine 7 mg/24 hr daily 1 patch transdermal Q24H #14 ea 10/26/24 10/26/24 Rx transdermal patch salicylic acid 40 % topical patch 1 applic topical Q48H #6 ea 10/26/24 10/26/24 Rx (Austin Remover) PFSH Medical History COVID C. difficile diarrhea Epidermoid cyst of skin of cheek Smoker Asthma History of MRSA infection Esophageal reflux Surgical History S/P lens implant H/O removal of cyst H/O adenoidectomy Hx of tonsillectomy Family History Father Prostate cancer Mother Asthma Grandmother Skin cancer Grandfather Colon cancer Uncle Leukemia Sister Leukemia Sister Diabetes Myocardial infarction Social History household members: none housing: house current occupational status: employed current occupation: [employer] Smoking Status: Former smoker Tobacco: How many years used: 40 quit status: considering quitting alcohol intake: current alcohol intake frequency: holidays/special occasions only details: Socially/Holidays Only substance use type: marijuana what type of physical activity do you participate in: walking do you feel safe at home: Yes HPI HPI Chief Complaint: FOOT PAIN Details: ANYI MOREJON, is a 54 M who presents to the office today for a follow up.??? He is up to date on his routine blood work.??? He believes he is up to date on his colonoscopy.??? He previously declined a flu shot.??? He is a smoker, but is very close to quitting entirely. He reports 1 pack lasts him around 2 weeks now. He has also been using a tobacco-less chew. He does need refills today.??? He reports he still isn't eating very healthy overall.??? He reports he is active at work. He reports his breathing has been doing better. At his last office visit, his breztri was resumed. He reports that he has been using it as prescribed. He does rinse his mouth out after each use. He also uses his nebulizer once in the mornings. He was seen in the ED on 09/21 for an acute flare which was treated with prednisone. On 10/16, he returned to the ED with shortness of breath. His oxygen was low and he had an increased work of breathing requiring BiPAP placement. Work up was fairly negative. Admission was discussed, however, he clinically improved and preferred to go home, so he was discharged with another course of prednisone as well as combivent (more content not included)... Normal [facility] BNP,B-Type NATRIURETIC PEPTI Nelda 10-16-2024 Natriuretic peptide B (Bld) [Mass/Vol] 5.1 pg/mL Normal 0-100 [facility] Comment on above: Performed By: #### L 503.6620, L500.2500, L100.0100, L501.5200 #### [facility] [address] [place], [address] Basic Metabolic Profile (BMP )on 10-16-2024 BUN/CRE 11.1 RATIO Normal 10-20 [facility] Comment on above: Performed By: #### L 503.6620, L500.2500, L100.0100, L501.5200 #### [facility] [address] [place], [address] CA,Total 8.9 mg/dL Normal 8.5-10.1 [facility] Comment on above: Performed By: #### L 503.6620, L500.2500, L100.0100, L501.5200 #### [facility] [address] [place], [address] Chloride [Moles/Vol] 105 mmol/L Normal 98-107 [facility] Comment on above: Performed By: #### L 503.6620, L500.2500, L100.0100, L501.5200 #### [facility] [address] [place], [address] CO2 [Moles/Vol] 28.0 mmol/L Normal 21.0-32.0 [facility] Comment on above: Performed By: #### L 503.6620, L500.2500, L100.0100, L501.5200 #### [facility] [address] [place], [address] Creatinine [Mass/Vol] 1.17 mg/dL Normal 0.70-1.[address] [facility] Comment on above: Result Comment: The validity of the calculated GFR GFRAA in patients over 70 years has not been determined. Clinical correlation is essential. Performed By: #### L 503.6620, L500.2500, L100.0100, L501.5200 #### [facility] [address] [place], [address] ECRCL 80.71 ml/min Normal [facility] Comment on above: Performed By: #### L 503.6620, L500.2500, L100.0100, L501.5200 #### [facility] [address] [place], [address] EST GFR - AA 84 mL/min Normal >60 [facility] Comment on above: Result Comment: Afri can Kyrgyz GFR Calc Performed By: #### L 503.6620, L500.2500, L100.0100, L501.5200 #### [facility] [address] [place], [address] GAP 5 Normal 5-15 [facility] Comment on above: Performed By: #### L 503.6620, L500.2500, L100.0100, L501.5200 #### [facility] [address] [place], [address] GFR/1.73 sq M.predicted among non-blacks MDRD (S/P/Bld) [Vol rate/Area] 69 mL/min/{1.73_m2} Normal >60 [facility] Comment on above: Result Comment: Non- GFR Calc Performed By: #### L 503.6620, L500.2500, L100.0100, L501.5200 #### [facility] [address] [place], [address] Glucose [Mass/Vol] 132 mg/dL High 74-106 [facility] Comment on above: Result Comment: Fast ing Glucose result greater than or equal to 126 mg/dL suggests DIABETES MELLITUS per A.D.A. criteria. Performed By: #### L 503.6620, L500.2500, L100.0100, L501.5200 #### [facility] [address] [place], [address] Potassium [Moles/Vol] 4.3 mmol/L Normal 3.5-5.[address] [facility] Comment on above: Result Comment: Mode rate Hemolysis, Result may be falsely increased. Performed By: #### L 503.6620, L500.2500, L100.0100, L501.5200 #### [facility] [address] [place], [address] Sodium [Moles/Vol] 138 mmol/L Normal 136-145 [facility] Comment on above: Performed By: #### L 503.6620, L500.2500, L100.0100, L501.5200 #### [facility] [address] [place], [address] Urea nitrogen [Mass/Vol] 13 mg/dL Normal 7-18 [facility] Comment on above: Performed By: #### L 503.6620, L500.2500, L100.0100, L501.5200 #### [facility] [address] [place], [address] [facility] Positive Normal [facility] Comment on above: Performed By: #### L 0.0800 #### [facility] [address] [place], [address] Base excess Calc (Bld) [Moles/Vol] 7 mmol/L High -2 to +2 [facility] Comment on above: Performed By: #### L 0.0800 #### [facility] [address] [place], [address] Blood Gas Type ART Normal [facility] Comment on above: Performed By: #### L 0.0800 #### [facility] [address] [place], [address] CO2 [Moles/Vol] 34 mmol/L Normal [facility] Comment on above: Performed By: #### L 0.0800 #### [facility] [address] [place], [address] Comment Normal [facility] Comment on above: Result Comment: AVAP S 450vt 14rr +8 maxP=26 minP=18 40% Performed By: #### L 9000.0800 #### [facility] [address] [place], [address] FI02 40.0 Normal [facility] Comment on above: Performed By: #### L 0.0800 #### [facility] [address] [place], [address] HCO3 (Bld) [Moles/Vol] 32.0 mmol/L High 22-26 [facility] Comment on above: Performed By: #### L 0.0800 #### [facility] [address] [place], [address] Mode Not entered Normal [facility] Comment on above: Performed By: #### L 9000.0800 #### [facility] [address] [place], [address] O2 Delivery Dev BiPAP Normal [facility] Comment on above: Performed By: #### L 9000.0800 #### [facility] [address] [place], [address] pCO2 54.1 mmHg High 35-45 [facility] Comment on above: Performed By: #### L 9000.0800 #### [facility] [address] [place], [address] pH (Bld) 7.38 [pH] Normal 7.35-7.45 [facility] Comment on above: Performed By: #### L 9000.0800 #### [facility] [address] [place], [address] PO2 140 mmHG High 75-100 [facility] Comment on above: Performed By: #### L 9000.0800 #### [facility] [address] [place], [address] RR 14 Normal [facility] Comment on above: Performed By: #### L 9000.0800 #### [facility] [address] [place], [address] SITE L Radial Normal [facility] Comment on above: Performed By: #### L 9000.0800 #### [facility] [address] [place], [address] SO2 99 Normal 95-99 [facility] Comment on above: Performed By: #### L 9000.0800 #### [facility] [address] [place], [address] Vt 450.0 mL Normal [facility] Comment on above: Performed By: #### L 9000.0800 #### [facility] [address] [place], [address] CBC W/Diff, Automatedon - 0-2024 Absolute Lymph 3.39 X10 3/uL Normal 0.83-4.51 [facility] Comment on above: Performed By: #### L 503.6620, L500.2500, L100.0100, L501.5200 #### [facility] [address] [place], [address] Absolute Neut 9.2 X10 3/uL High 2.0-7.7 [facility] Comment on above: Performed By: #### L 503.6620, L500.2500, L100.0100, L501.5200 #### [facility] [address] [place], [address] Basophils/100 WBC (Bld) 0.5 % Normal 0-1 [facility] Comment on above: Performed By: #### L 503.6620, L500.2500, L100.0100, L501.5200 #### [facility] [address] [place], [address] Eosinophils/100 WBC (Bld) 3.0 % Normal 0-5 [facility] Comment on above: Performed By: #### L 503.6620, L500.2500, L100.0100, L501.5200 #### [facility] [address] [place], [address] Erythrocyte distribution width (RBC) [Ratio] 13.5 % Normal 11.6-14.6 [facility] Comment on above: Performed By: #### L 503.6620, L500.2500, L100.0100, L501.5200 #### [facility] [address] [place], [address] Hematocrit (Bld) [Volume fraction] 45.9 % Normal 40-54 [facility] Comment on above: Performed By: #### L 503.6620, L500.2500, L100.0100, L501.5200 #### [facility] [address] [place], [address] Hemoglobin (Bld) [Mass/Vol] 15.4 g/dL Normal 13.0-16.5 [facility] Comment on above: Performed By: #### L 503.6620, L500.2500, L100.0100, L501.5200 #### [facility] [address] [place], [address] IG% 0.600 Normal 0.0-0.9 [facility] Comment on above: Result Comment: IG% - Immature Granulocytes (promyelocytes, myelocytes and metamyelocytes) > 1% indicates that a LEFT SHIFT is Present. Performed By: #### L 503.6620, L500.2500, L100.0100, L501.5200 #### [facility] [address] [place], [address] Lymphocytes/100 WBC (Bld) 24.0 % Normal 19-41 [facility] Comment on above: Performed By: #### L 503.6620, L500.2500, L100.0100, L501.5200 #### [facility] [address] [place], [address] MCH (RBC) [Entitic mass] 31.3 pg Normal 27.0-32.0 [facility] Comment on above: Performed By: #### L 503.6620, L500.2500, L100.0100, L501.5200 #### [facility] [address] [place], [address] MCHC (RBC) [Mass/Vol] 33.6 g/dL Normal 32-[address] [facility] Comment on above: Performed By: #### L 503.6620, L500.2500, L100.0100, L501.5200 #### [facility] [address] [place], [address] MCV (RBC) [Entitic vol] 93.3 fL Normal 80-94 [facility] Comment on above: Performed By: #### L 503.6620, L500.2500, L100.0100, L501.5200 #### [facility] [address] [place], [address] Monocytes/100 WBC (Bld) 6.7 % Normal 0-10 [facility] Comment on above: Performed By: #### L 503.6620, L500.2500, L100.0100, L501.5200 #### [facility] [address] [place], [address] Neutrophils/100 WBC (Bld) 65.2 % Normal 47-70 [facility] Comment on above: Performed By: #### L 503.6620, L500.2500, L100.0100, L501.5200 #### [facility] [address] [place], [address] Nucleated RBC (Bld) [#/Vol] 0 10*3/uL Normal 0-5 [facility] Comment on above: Performed By: #### L 503.6620, L500.2500, L100.0100, L501.5200 #### [facility] [address] [place], [address] Platelet mean volume (Bld) [Entitic vol] 10.1 fL Normal 6.2-12.0 [facility] Comment on above: Performed By: #### L 503.6620, L500.2500, L100.0100, L501.5200 #### [facility] [address] [place], [address] Platelets (Bld) [#/Vol] 305 10*3/uL Normal 150-450 [facility] Comment on above: Performed By: #### L 503.6620, L500.2500, L100.0100, L501.5200 #### [facility] [address] [place], [address] RBC (Bld) [#/Vol] 4.92 10*6/uL Normal 4.6-6.2 [facility] Comment on above: Performed By: #### L 503.6620, L500.2500, L100.0100, L501.5200 #### [facility] [address] [place], [address] RDW SD 46.2 fl High 35.1-43.9 [facility] Comment on above: Performed By: #### L 503.6620, L500.2500, L100.0100, L501.5200 #### [facility] [address] [place], [address] WBC (Bld) [#/Vol] 14.1 10*3/uL High 4.4-11.0 [facility] Comment on above: Performed By: #### L 503.6620, L500.2500, L100.0100, L501.5200 #### [facility] [address] [place], [address] Chest 1 View (Portable)on Chest 1 View (Portable) [facility] Imaging Services [address] [place] [address] Chest 1 View (Portable) MR#: [id number] Acct: [id number] Name: ANYI MOREJON A Rep #: [id number] : 1970 M 54 From: Misha Barrios MD PCP: Dr. Jenny Sorenson MD Status: REG ER Study: Chest 1 View (Portable) Date of Exam: 10/16/24 Exam# [id number] Ordering Dr: Pankaj Nolasco DO [id number] INDICATION: hypoxia EXAMINATION/TECHNIQU E: X-RAY - XR Chest 1 View COMPARISON: None. Findings: Single frontal view of the chest. LUNG PARENCHYMA: No acute focal airspace disease or mass lesion. PLEURA: No pleural effusion. No pneumothorax. HEART/GREAT VESSELS: Cardiomediastinal silhouette is unremarkable. BONES: Osseous structures are unremarkable for age. RAD/Chest 1 View (Portable) IMPRESSION: Chest with no acute disease. Electronically Signed: Misha Barrios MD at 3:52 EST , CC: Dr. Jenny Sorenson MD; Pankaj Nolasco DO Parts Sales Advisor: Signed Normal [facility] Emergency Department Summary on 10-16-2024 Emergency Department Summary [facility] Medical Records Department [address] [place] [id number] Emergency Department Summary 10/16/24 MR#: [id number] Acct: [id number] Name: ANYI MOREJON Rep #: [id number] : 1970 54 From: Pankaj Nolasco DO PCP: Dr. Jenny Sorenson MD Status:DEP ER Location: ED HPI History of Present Illness Chief Complaint: Shortness of Breath Informant: patient and EMS Narrative Narrative: Patient is a 54-year-old male with past medical history of asthma tobacco abuse and GERD. He was seen roughly 1 month ago for asthma/COPD exacerbation after receiving treatments reported feeling better and was discharged home. He states he has been doing well but that this evening after work he began having increased shortness of breath. He states he took his home inhaler without any symptom improvement and secondary to this called EMS. EMS states when they arrived patient's pulse ox on room air was in the mid to low 80s. They state they placed him on 6 L nasal cannula but he was having persistent work of breathing and therefore he was transitioned to CPAP which did help resolve his symptoms. The patient denies any recent sick contacts and he does report an allergy to nuts but denies any obvious exposure prior to symptom onset. [facility] Medical History COVID C. difficile diarrhea Epidermoid cyst of skin of cheek Smoker Asthma History of MRSA infection Esophageal reflux Home Medications ???Medication ???Instructions ???Recorded ???Last Taken ???Type Ventolin HFA 90 mcg/actuation 2 puff inhalation Q6H PRN 07/22/24 Unknown Rx aerosol inhaler (albuterol sulfate) shortness of breath or wheezing #8 grams budesonide 160 mcg-glycopyr 9 2 inh inhalation BID #10.7 grams 07/22/24 Unknown Rx mcg-formot 4.8 mcg/actuation HFA inhaler (Breztri Aerosphere) nicotine (polacrilex) 4 mg buccal 4 mg buccal Q8H PRN nicotine 07/22/24 Unknown Rx lozenge cravings #24 ea nicotine 21 mg/24 hr daily 1 patch transdermal Q24H #28 ea 07/22/24 Unknown Rx transdermal patch ipratropium 0.5 mg-albuterol 3 mg 3 ml inhalation Q6H PRN shortness 09/21/24 Unknown Rx (2.5 mg base)/3 mL nebulization of breath/Wheeze #180 mL soln ipratropium 20 mcg-albuterol 100 1 puff inhalation Q6H PRN 09/21/24 Unknown Rx mcg/actuation mist for inhalation shortness of breath or wheezing #4 (Combivent Respimat) grams albuterol sulfate 90 mcg/actuation 2 puff inhalation Q4H PRN PRN 10/16/24 Unknown Rx aerosol inhaler (Ventolin HFA) Wheezing/SOB #1 device budesonide 160 mcg-glycopyr 9 2 inh inhalation BID #10.7 grams 10/16/24 Unknown Rx mcg-formot 4.8 mcg/actuation HFA inhaler (Breztri Aerosphere) ipratropium 0.5 mg-albuterol 3 mg 3 ml inhalation Q6H PRN shortness 10/16/24 Unknown Rx (2.5 mg base)/3 mL nebulization of breath or wheezing #180 mL soln ipratropium 20 mcg-albuterol 100 1 puff inhalation Q6H #4 grams 10/16/24 Unknown Rx mcg/actuation mist for inhalation (Combivent Respimat) prednisone 20 mg tablet 40 mg (2 x 20 mg) PO DAILY 7 days 10/16/24 Unknown Rx #14 tabs Allergy/AdvReac Type Severity Reaction Status Date / Time Fish Containing Products Allergy Severe Anaphylaxis Verified 10/16/24 01:29 nut - unspecified (nuts) Allergy Severe Anaphylaxis Verified 10/16/24 01:29 shellfish derived Allergy Severe Anaphylaxis Verified 10/16/24 01:29 sulfamethoxazole (From Allergy Mild Rash Verified 10/16/24 01:29 Bactrim) trimethoprim (From Bactrim) Allergy Mild Rash Verified 10/16/24 01:29 Family History (Updated 07/22/24 @ 14:[address] Jenny Sorenson MD) Father Prostate cancer Mother Asthma Grandmother Skin cancer Grandfather Colon cancer Uncle Leukemia Sister Leukemia Sister Diabetes Myocardial infarction Surgical History S/P lens implant H/O removal of cyst H/O adenoidectomy Hx of tonsillectomy Social History (Updated 07/22/24 @ 14:[address] Jenny Sorenson MD) household members: none housing: house current occupational status: employed current occupation: [employer] Smoking Status: Former smoker Tobacco: How many years used: 40 quit status: considering quitting alcohol intake: current alcohol intake frequency: holidays/special occasions only details: Socially/Holidays Only substance use type: marijuana what type of physical activity do you participate in: walking do you feel safe at home: Yes ROS ROS ED Constitutional Constitutional ED: Denies chills or fever(s) Eyes Eyes: Denies change in vision ENT ENT ED: Denies sore throat Cardiovascular Cardiovascular: Denies chest pain or palpitations Respiratory/Chest Respiratory/Chest: Reports cough and dyspnea Gastroin (more content not included)... Normal [facility] M100.678on 10-16-2024 M100.678 Pending SARS-CoV-2 (COVID 19) Negative INFLUENZA A Negative INFLUENZA B Negative RSV PCR Negative Normal [facility] Comment on above: Performed By: #### M 100.678 #### [facility] [address] [place], [address] Magnesiumon 10-16-2024 Magnesium [Mass/Vol] 2.1 mg/dL Normal 1.6-2.6 [facility] Comment on above: Result Comment: Mode rate Hemolysis, Result may be falsely increased. Performed By: #### L 503.6620, L500.2500, L100.0100, L501.5200 #### [facility] [address] [place], [address] Emergency Department Summary on 09-21-2024 Emergency Department Summary [facility] Medical Records Department [address] [place] [address] Emergency Department Summary 09/21/24 MR#: [id number] Acct: [id number] Name: ANYI MOREJON Rep #: [id number] : 1970 54 From: Pankaj Nolasco DO PCP: Dr. Jenny Sorenson MD Status:PRE ER Location: ED HPI History of Present Illness Chief Complaint: Shortness of Breath Informant: patient Narrative Narrative: Patient is a 54-year-old male with past medical history of asthma and GERD. He states roughly 2 hours prior to arrival he began to feel like he was having difficulty breathing. He states that there is no associated chest pain nausea vomiting or diaphoresis. He states that he has a history of asthma and it felt similar to an exacerbation. He states he does not believe he was exposed any type of allergen. He states that he tried 2 treatments at home and they did not seem to help his symptoms and therefore he presents to the hospital for evaluation. Of note after arrival to the hospital the patient does report that he is feeling better PFSH PFS Medical History COVID C. difficile diarrhea Epidermoid cyst of skin of cheek Smoker Asthma History of MRSA infection Esophageal reflux Home Medications ???Medication ???Instructions ???Recorded ???Last Taken ???Type Ventolin HFA 90 mcg/actuation 2 puff inhalation Q6H PRN 07/22/24 Unknown Rx aerosol inhaler (albuterol sulfate) shortness of breath or wheezing #8 grams budesonide 160 mcg-glycopyr 9 2 inh inhalation BID #10.7 grams 07/22/24 Unknown Rx mcg-formot 4.8 mcg/actuation HFA inhaler (Breztri Aerosphere) nicotine (polacrilex) 4 mg buccal 4 mg buccal Q8H PRN nicotine 07/22/24 Unknown Rx lozenge cravings #24 ea nicotine 21 mg/24 hr daily 1 patch transdermal Q24H #28 ea 07/22/24 Unknown Rx transdermal patch prednisone 20 mg tablet 40 mg (2 x 20 mg) PO QDAY #10 tabs 07/22/24 Unknown Rx ipratropium 0.5 mg-albuterol 3 mg 3 ml inhalation Q6H PRN shortness 09/21/24 Unknown Rx (2.5 mg base)/3 mL nebulization of breath/Wheeze #180 mL soln ipratropium 20 mcg-albuterol 100 1 puff inhalation Q6H PRN 09/21/24 Unknown Rx mcg/actuation mist for inhalation shortness of breath or wheezing #4 (Combivent Respimat) grams prednisone 10 mg tablet 10 mg PO UD #33 tabs 09/21/24 Unknown Rx Allergy/AdvReac Type Severity Reaction Status Date / Time Fish Containing Products Allergy Severe Anaphylaxis Verified 09/21/24 03:05 nut - unspecified (nuts) Allergy Severe Anaphylaxis Verified 09/21/24 03:05 shellfish derived Allergy Severe Anaphylaxis Verified 09/21/24 03:05 sulfamethoxazole (From Allergy Mild Rash Verified 09/21/24 03:05 Bactrim) trimethoprim (From Bactrim) Allergy Mild Rash Verified 09/21/24 03:05 Family History (Updated 07/22/24 @ 14:[address] Jenny Sorenson MD) Father Prostate cancer Mother Asthma Grandmother Skin cancer Grandfather Colon cancer Uncle Leukemia Sister Leukemia Sister Diabetes Myocardial infarction Surgical History S/P lens implant H/O removal of cyst H/O adenoidectomy Hx of tonsillectomy Social History (Updated 07/22/24 @ 14:[address] Jenny Sorenson MD) household members: none housing: house current occupational status: employed current occupation: [employer] Smoking Status: Current every day smoker tobacco type: cigarettes Tobacco: How many years used: 40 quit status: considering quitting alcohol intake: current alcohol intake frequency: holidays/special occasions only details: Socially/Holidays Only substance use type: marijuana what type of physical activity do you participate in: walking do you feel safe at home: Yes ROS ROS ED Constitutional Constitutional ED: Denies chills or fever(s) Eyes Eyes: Denies change in vision ENT ENT ED: Reports rhinorrhea and sore throat Cardiovascular Cardiovascular: Denies chest pain or palpitations Respiratory/Chest Respiratory/Chest: Reports cough, dyspnea and other Details: Positive wheeze Gastrointestinal Gastrointestinal: Denies abdominal pain, diarrhea, nausea or vomiting Genitourinary Genitourinary ED: Denies dysuria Musculoskeletal Musculoskeletal: Denies back pain Integumentary Denies rash Neurologic Neurologic: Denies headache(s) Hematologic/Lymphati c Hematologic/Lymphati c: Denies easy bleeding or easy bruising Allergic/Immunologic Allergic/Immunologic ED: Denies mouth swelling, tongue swelling or urticaria EXAM Physical Exam Const Vital Signs: 09/21/24 03:01 09/21/24 03:08 09/21/24 03:37 Temperature 98.1 F Temperature Source Temporal Pulse Rate 110 H 107 H Respiratory Rate 20 H 18 Respiratory Eff (more content not included)... Normal [facility] CBC W/Diff, Automatedon 10-1 Absolute Lymph 2.25 X10 3/uL Normal 0.83-4.51 [facility] Comment on above: Performed By: #### L 501.9520, L501.9910, L100.0100, L500.4100, L500.4050 ####[facility] [address] [place], [address] Absolute Neut 5.7 X10 3/uL Normal 2.0-7.7 [facility] Comment on above: Performed By: #### L 501.9520, L501.9910, L100.0100, L500.4100, L500.4050 ####[facility] [address] [place], [address] Basophils/100 WBC (Bld) 0.6 % Normal 0-1 [facility] Comment on above: Performed By: #### L 501.9520, L501.9910, L100.0100, L500.4100, L500.4050 ####[facility] [address] [place], [address] Eosinophils/100 WBC (Bld) 2.6 % Normal 0-5 [facility] Comment on above: Performed By: #### L 501.9520, L501.9910, L100.0100, L500.4100, L500.4050 ####[facility] [address] [place], [address] Erythrocyte distribution width (RBC) [Ratio] 12.9 % Normal 11.6-14.6 [facility] Comment on above: Performed By: #### L 501.9520, L501.9910, L100.0100, L500.4100, L500.4050 ####[facility] [address] [place], [address] Hematocrit (Bld) [Volume fraction] 46.6 % Normal 40-54 [facility] Comment on above: Performed By: #### L 501.9520, L501.9910, L100.0100, L500.4100, L500.4050 ####[facility] [address] [place], [address] Hemoglobin (Bld) [Mass/Vol] 15.1 g/dL Normal 13.0-16.5 [facility] Comment on above: Performed By: #### L 501.9520, L501.9910, L100.0100, L500.4100, L500.4050 ####[facility] [address] [place], [address] IG% 0.300 Normal 0.0-0.9 [facility] Comment on above: Result Comment: IG% - Immature Granulocytes (promyelocytes, myelocytes and metamyelocytes) > 1% indicates that a LEFT SHIFT is Present. Performed By: #### L 501.9520, L501.9910, L100.0100, L500.4100, L500.4050 ####[facility] [address] [place], [address] Lymphocytes/100 WBC (Bld) 25.3 % Normal 19-41 [facility] Comment on above: Performed By: #### L 501.9520, L501.9910, L100.0100, L500.4100, L500.4050 ####[facility] [address] [place], [address] MCH (RBC) [Entitic mass] 30.9 pg Normal 27.0-32.0 [facility] Comment on above: Performed By: #### L 501.9520, L501.9910, L100.0100, L500.4100, L500.4050 ####[facility] [address] [place], [address] MCHC (RBC) [Mass/Vol] 32.4 g/dL Normal 32-[address] [facility] Comment on above: Performed By: #### L 501.9520, L501.9910, L100.0100, L500.4100, L500.4050 ####[facility] [address] [place], [address] MCV (RBC) [Entitic vol] 95.5 fL High 80-94 [facility] Comment on above: Performed By: #### L 501.9520, L501.9910, L100.0100, L500.4100, L500.4050 ####[facility] [address] [place], [address] Monocytes/100 WBC (Bld) 7.7 % Normal 0-10 [facility] Comment on above: Performed By: #### L 501.9520, L501.9910, L100.0100, L500.4100, L500.4050 ####[facility] [address] [place], [address] Neutrophils/100 WBC (Bld) 63.5 % Normal 47-70 [facility] Comment on above: Performed By: #### L 501.9520, L501.9910, L100.0100, L500.4100, L500.4050 ####[facility] [address] [place], [address] Nucleated RBC (Bld) [#/Vol] 0 10*3/uL Normal 0-5 [facility] Comment on above: Performed By: #### L 501.9520, L501.9910, L100.0100, L500.4100, L500.4050 ####[facility] [address] [place], [address] Platelet mean volume (Bld) [Entitic vol] 9.3 fL Normal 6.2-12.0 [facility] Comment on above: Performed By: #### L 501.9520, L501.9910, L100.0100, L500.4100, L500.4050 ####[facility] [address] [place], [address] Platelets (Bld) [#/Vol] 327 10*3/uL Normal 150-450 [facility] Comment on above: Performed By: #### L 501.9520, L501.9910, L100.0100, L500.4100, L500.4050 ####[facility] [address] [place], [address] RBC (Bld) [#/Vol] 4.88 10*6/uL Normal 4.6-6.2 [facility] Comment on above: Performed By: #### L 501.9520, L501.9910, L100.0100, L500.4100, L500.4050 ####[facility] [address] [place], [address] RDW SD 45.1 fl High 35.1-43.9 [facility] Comment on above: Performed By: #### L 501.9520, L501.9910, L100.0100, L500.4100, L500.4050 ####[facility] [address] [place], [address] WBC (Bld) [#/Vol] 8.9 10*3/uL Normal 4.4-11.0 [facility] Comment on above: Performed By: #### L 501.9520, L501.9910, L100.0100, L500.4100, L500.4050 ####[facility] [address] [place], [address] Comprehensive Metabolic [facility] 07-22-2024 Albumin [Mass/Vol] 3.6 g/dL Normal 3.2-5.0 [facility] Comment on above: Performed By: #### L 501.9520, L501.9910, L100.0100, L500.4100, L500.4050 ####[facility] [address] [place], [address] Albumin/Globulin [Mass ratio] 1.2 {ratio} Normal 0.9-2.4 [facility] Comment on above: Performed By: #### L 501.9520, L501.9910, L100.0100, L500.4100, L500.4050 ####[facility] [address] [place], [address] ALK P 79 U/L Normal 45-117 [facility] Comment on above: Performed By: #### L 501.9520, L501.9910, L100.0100, L500.4100, L500.4050 ####[facility] [address] [place], [address] ALT [Catalytic activity/Vol] 26 U/L Normal 16-61 [facility] Comment on above: Performed By: #### L 501.9520, L501.9910, L100.0100, L500.4100, L500.4050 ####[facility] [address] [place], [address] AST [Catalytic activity/Vol] 17 U/L Normal 15-37 [facility] Comment on above: Performed By: #### L 501.9520, L501.9910, L100.0100, L500.4100, L500.4050 ####[facility] [address] [place], [address] Bilirubin [Mass/Vol] 0.40 mg/dL Normal 0.20-1.00 [facility] Comment on above: Result Comment: For patients on eltrombopag therapy, use of Dimension Beacon TBIL is not recommended. Performed By: #### L 501.9520, L501.9910, L100.0100, L500.4100, L500.4050 ####[facility] [address] [place], [address] BUN/CRE 11.1 RATIO Normal 10-20 [facility] Comment on above: Performed By: #### L 501.9520, L501.9910, L100.0100, L500.4100, L500.4050 ####[facility] [address] [place], [address] CA,Total 9.1 mg/dL Normal 8.5-10.1 [facility] Comment on above: Performed By: #### L 501.9520, L501.9910, L100.0100, L500.4100, L500.4050 ####[facility] [address] [place], [address] Chloride [Moles/Vol] 106 mmol/L Normal 98-107 [facility] Comment on above: Performed By: #### L 501.9520, L501.9910, L100.0100, L500.4100, L500.4050 ####[facility] [address] [place], [address] CO2 [Moles/Vol] 30.0 mmol/L Normal 21.0-32.0 [facility] Comment on above: Performed By: #### L 501.9520, L501.9910, L100.0100, L500.4100, L500.4050 ####[facility] [address] [place], [address] Creatinine [Mass/Vol] 0.99 mg/dL Normal 0.70-1.[address] [facility] Comment on above: Result Comment: The validity of the calculated GFR GFRAA in patients over 70 years has not been determined. Clinical correlation is essential. Performed By: #### L 501.9520, L501.9910, L100.0100, L500.4100, L500.4050 ####[facility] [address] [place], [address] EST GFR - AA 101 mL/min Normal >60 [facility] Comment on above: Result Comment: Afri can Kyrgyz GFR Calc Performed By: #### L 501.9520, L501.9910, L100.0100, L500.4100, L500.4050 ####[facility] [address] [place], [address] GAP 4 Low 5-15 [facility] Comment on above: Performed By: #### L 501.9520, L501.9910, L100.0100, L500.4100, L500.4050 ####[facility] [address] [place], [address] GFR/1.73 sq M.predicted among non-blacks MDRD (S/P/Bld) [Vol rate/Area] 84 mL/min/{1.73_m2} Normal >60 [facility] Comment on above: Result Comment: Non- GFR Calc Performed By: #### L 501.9520, L501.9910, L100.0100, L500.4100, L500.4050 ####[facility] [address] [place], [address] Globulin (S) [Mass/Vol] 3.1 g/dL Normal 2.2-4.2 [facility] Comment on above: Performed By: #### L 501.9520, L501.9910, L100.0100, L500.4100, L500.4050 ####[facility] [address] [place], [address] Glucose [Mass/Vol] 110 mg/dL High 74-106 [facility] Comment on above: Result Comment: Fast ing Glucose result from 100 to 125 mg/dL suggests IMPAIRED HOMEOSTASIS per A.D.A. criteria. Performed By: #### L 501.9520, L501.9910, L100.0100, L500.4100, L500.4050 ####[facility] [address] [place], [address] Potassium [Moles/Vol] 3.8 mmol/L Normal 3.5-5.[address] [facility] Comment on above: Performed By: #### L 501.9520, L501.9910, L100.0100, L500.4100, L500.4050 ####[facility] [address] [place], [address] Sodium [Moles/Vol] 140 mmol/L Normal 136-145 [facility] Comment on above: Performed By: #### L 501.9520, L501.9910, L100.0100, L500.4100, L500.4050 ####[facility] [address] [place], [address] T PROT 6.7 g/dL Normal 6.4-8.2 [facility] Comment on above: Performed By: #### L 501.9520, L501.9910, L100.0100, L500.4100, L500.4050 ####[facility] [address] [place], [address] Urea nitrogen [Mass/Vol] 11 mg/dL Normal 7-18 [facility] Comment on above: Performed By: #### L 501.9520, L501.9910, L100.0100, L500.4100, L500.4050 ####[facility] [address] [place], [address] Lipid Profileon 07-22-2024 Cholesterol [Mass/Vol] 162 mg/dL Normal 200 [facility] Comment on above: Result Comment: <200 mg/dL Desirable 200-240 mg/dL Borderline >240 mg/dL High Risk Performed By: #### L 501.9520, L501.9910, L100.0100, L500.4100, L500.4050 ####[facility] [address] [place], [address] Cholesterol in HDL [Mass/Vol] 48 mg/dL Normal [facility] Comment on above: Result Comment: The drugs N-Acetylcysteine and Metamizole may falsely depress this assay. Reference Range HDL <40 mg/dL Low HDL Cholesterol HDL >or= 60 mg/dL High HDL Cholesterol Performed By: #### L 501.9520, L501.9910, L100.0100, L500.4100, L500.4050 ####[facility] [address] [place], [address] Cholesterol in LDL [Mass/Vol] 84 mg/dL Normal 0-130 [facility] Comment on above: Performed By: #### L 501.9520, L501.9910, L100.0100, L500.4100, L500.4050 ####[facility] [address] [place], [address] Cholesterol in VLDL [Mass/Vol] 30 mg/dL Normal 5-40 [facility] Comment on above: Performed By: #### L 501.9520, L501.9910, L100.0100, L500.4100, L500.4050 ####[facility] [address] [place], [address] Triglyceride [Mass/Vol] 149 mg/dL Normal [facility] Comment on above: Result Comment: The drugs N-Acetylcysteine and Metamizole may falsely depress this assay. Serum Triglycerides Reference Interval Normal <150 mg/dL Borderline high 150 - 199 mg/dL High 200 - 499 mg/dL Very High > or = 500 mg/dL Performed By: #### L 501.9520, L501.9910, L100.0100, L500.4100, L500.4050 ####[facility] [address] [place], [address] PSA,Total - Annual Screenon 07-22-2024 PSA,TOT SCREEN 3.10 ng/mL Normal 0.00-4.00 [facility] Comment on above: Result Comment: This test was performed using the TPSA assay method for the [employer] chemistry system. Values obtained with different assay methods cannot be used interchangably. When changing PSA assays in the course of monitoring a patient, additional sequential testing should be carried out to confirm baseline values. Performed By: #### L 501.9520, L501.9910, L100.0100, L500.4100, L500.4050 ####[facility] [address] [place], [address] Thyroid Stim Hormone (TSH)on 07-22-2024 TSH 2.110 uIU/mL Normal 0.358-3.740 [facility] Comment on above: Performed By: #### L 501.9520, L501.9910, L100.0100, L500.4100, L500.4050 ####[facility] [address] [place], [address] Internal Medicine Office Vis darlene 07-21-2024 Internal Medicine Office Visit [facility] [address] [place] [address] [place] [address] OFFICE VISIT Date of Service: 07/22/24 MR#: [id number] Acct: [id number] Name: ANYI MOREJON Rep #: [id number] : 1970 Provider: Dr. Jenny ferrera MD Age/Sex: 53/M Location: [facility] Status: Signed Intake Vital Signs 10/11/23 10:23 07/22/24 14:03 Height 5 ft 9 in 5 ft 9 in Weight: 190 lb 9 oz BMI 28.1 BP 130/70 H Blood Pressure Location Lt brachial Position Sitting Respiration 16 Pulse 103 H Pulse Source Monitor Temp 97.0 F L Temp Source Temporal Pulse Oximetry (%) 97 Oxygen Delivery Method room air Intake Visit Reasons: fu Chief Complaint: f/u Paster Hat Lining Required: No Accompanied by: Self Is patient in pain?: No Allergies Fish Containing Products Allergy (Severe, Verified 07/22/24 13:56) Anaphylaxis nut - unspecified (nuts) Allergy (Severe, Verified 07/22/24 13:56) Anaphylaxis shellfish derived Allergy (Severe, Verified 07/22/24 13:56) Anaphylaxis sulfamethoxazole (From Bactrim) Allergy (Mild, Verified 07/22/24 13:56) Rash trimethoprim (From Bactrim) Allergy (Mild, Verified 07/22/24 13:56) Rash Medications ???Medication ???Instructions ???Recorded ???Confirmed ???Type Ventolin HFA 90 mcg/actuation 2 puff inhalation Q6H PRN 07/22/24 07/22/24 Rx aerosol inhaler (albuterol sulfate) shortness of breath or wheezing #8 grams budesonide 160 mcg-glycopyr 9 2 inh inhalation BID #10.7 grams 07/22/24 07/22/24 Rx mcg-formot 4.8 mcg/actuation HFA inhaler (Breztri Aerosphere) nicotine (polacrilex) 4 mg buccal 4 mg buccal Q8H PRN nicotine 07/22/24 07/22/24 Rx lozenge cravings #24 ea nicotine 21 mg/24 hr daily 1 patch transdermal Q24H #28 ea 07/22/24 07/22/24 Rx transdermal patch prednisone 20 mg tablet 40 mg (2 x 20 mg) PO QDAY #10 tabs 07/22/24 07/22/24 Rx PFSH Medical History COVID C. difficile diarrhea Epidermoid cyst of skin of cheek Smoker Asthma History of MRSA infection Esophageal reflux Surgical History S/P lens implant H/O removal of cyst H/O adenoidectomy Hx of tonsillectomy Family History (Updated 07/22/24 @ 14:[address] Jenny Sorenson MD) Father Prostate cancer Mother Asthma Grandmother Skin cancer Grandfather Colon cancer Uncle Leukemia Sister Leukemia Sister Diabetes Myocardial infarction Social History (Updated 07/22/24 @ 14:[address] Jenny Sorenson MD) household members: none housing: house current occupational status: employed current occupation: [employer] Smoking Status: Current every day smoker tobacco type: cigarettes Tobacco: How many years used: 40 quit status: considering quitting alcohol intake: current alcohol intake frequency: holidays/special occasions only details: Socially/Holidays Only substance use type: marijuana what type of physical activity do you participate in: walking do you feel safe at home: Yes HPI HPI Chief Complaint: f/u Details: ANYI MOREJON, is a 53 M who presents to the office today for a follow up.??? He never did his previous blood work.??? He believes he is up to date on his colonoscopy.??? He doesn't want a flu shot at this time.??? He is a smoker and is interested in quitting. He would like a prescription for patches and lozenges to help. He does need refills today.??? He reports he isn't eating very healthy overall.??? He reports he is active at work. The patient reports he hasn't been using his breztri. He reports he stopped using it about a year or more ago. He reports it was working for him, but he just never picked it up. He reports he just recently got over a respiratory illness. Prior to that, his last flare up was in October when he had COVID. He did recover from that without any problems. He reports he has been using his rescue inhaler regularly. He reports the generic albuterol inhaler doesn't seem to do much and would prefer to be maintained on ventolin only. He states that works much better for him. At his last office visit, he complained of right shoulder pain. He reports that it has been doing better. He hasn't had any further problems with it. He reports he has had problems with muscle cramps in the last year. They usually involve his hips down his legs. He reports, he will occasionally have a similar cramp in his lower abdomen. He denies any relation to activity stating he will notice it more when he is sitting still or sleeping. He currently drinks salt water, which does seem to help. ROS Const Constitutional: Positive for fatigue; No body ache, chills, excessive sweating, fever(s), frequent falls, headache(s), snoring, weakness, weight change or change in appetite (more content not included)... Normal [facility] Laboratory - Microbiology an d Antimicrobial susceptibilityOrdered By: Tutu Flor on 10-11-2023 SARS-CoV-2 (COVID-19) RNA TIM+probe Ql (Unsp spec) SARS-CoV-2 (COVID 19 PCR) [facility] No Panel Informationon 10-11 Influenza Types A,B Rapid (Clinic) Negative [facility] XR KNEE THREE VIEWS LEFTon 0 10-10-2021 XR KNEE THREE VIEWS LEFT ORIGINAL EXAMINATION: THREE XRAY VIEWS OF THE LEFT KNEE 10/10/2021 1:12 am COMPARISON: None. HISTORY: ORDERING SYSTEM PROVIDED HISTORY: Reason for Exam: Pain Injury due to a fall. FINDINGS: No fracture or dislocation of the left knee is present. There is no joint effusion. The joint spaces are maintained and the articular surfaces appear normal. No foreign body is detected in the soft tissue. IMPRESSION: No fracture or dislocation of the left knee. Interpreted by: Yoel Wadsworth MD Preliminary Report By: Yoel Wadsworth MD Electronically signed By Yoel Wadsworth MD Dictated Date: 10/10/2021 1:22:19 AM Prelim Date: 10/10/2021 1:23:12 AM Sign Date: 10/10/2021 1:23:12 AM Ordering Provider: MARIA D Roger [facility] ([place]) OBSOLETEon 08-19-2021 OBSOLETE Refill (PULMWS) ANYI MOREJON ([id number]) 1970 M Date Time Provider Department 08/19/21 CIRA DUNN During your visit today, we recorded the following information about you: Hazel Valdivia LPN 08/21/2021 8:12 AM Signed Patient's request for medication is as follows: Pending Prescriptions Disp Refills ALBUTEROL SULFATE HFA 90 MCG/ACTUATION AEROSOL INHALER 18 g 11 Sig: Inhale 2 Puffs as instructed every 4 hours as needed. ADILE: No BHASKAR: 09/19/2020 Please approve the above prescription(s) to electronically send to pharmacy. Hazel Valdivia LPN Allergies As of Date: 08/19/2021 Noted Allergy Reaction fish products [Other] 10/26/2009 NUT - UNSPECIFIED 10/26/2009 SINGULAIR (MONTEL[place]AST) 09/19/2020 14 - Other: See Comments Comments: Clicking in my ears. BACTRIM (SULFAMETHOXAZOLE) 03/29/2014 4 - Hives Comments: Has tolerated since without reaction. Date Reviewed: 07/10/2021 Reviewed by: Cira Dunn MD - Fully Assessed Reason for Visit: Refill Request [94] Order(s):albuterol HFA (PROVENTIL HFA, VENTOLIN HFA) 90 mcg/actuation inhalerInhale 2 Puffs as instructed every 4 hours as needed.Disp: 18 gRfl: 3 Prescriptions as of 08/21/2021 - albuterol HFA (PROVENTIL HFA, VENTOLIN HFA) 90 mcg/actuation inhaler Inhale 2 Puffs as instructed every 4 hours as needed. 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] 10/26/2009 01/26/2015 Unspecified disorder of skin and subcutaneous t*11/04/2009 01/26/2015 Umbilical Hernia without Mention of Obstruction*12/01/19 10 Asthma [J45.909] Cellulitis and abscess of unspecified site [L03*11/08/2012 09/12/2017 Perianal mass [K62.89] 12/02/2012 01/26/2015 Condyloma acuminata [A63.0] 12/12/2012 09/12/2017 Tobacco use [Z72.0] 02/18/2015 Unspecified hearing loss [H91.90] 05/09/2015 Gastroesophageal reflux disease [K21.9] 05/31/2017 Tobacco use disorder, continuous [F17.209] 09/19/2020 Prescriptions ordered this encounter Disp Refills Start End ALBUTEROL SULFATE HFA 90 MCG/ACTUATI* 18 g 3 08/21/2021 Cmt: Generic or brand: dispense inhaler preferred by patient/insurance unless ADIEL flag is selected. Route: INHALATION Sig: Inhale 2 Puffs as instructed every 4 hours as needed. Medications Discontinued During This Encounter Prescriptions - albuterol HFA (PROVENTIL HFA, VENTOLIN HFA) 90 mcg/actuation inhaler (Discontinued) Inhale 2 Puffs as instructed every 4 hours as needed. Encounter Status:Closed by CIRA DUNN on 08/21/21 [facility] OBSOLETEon 07-07-2021 OBSOLETE Refill (PULMWS) ANYI MOREJON ([id number]) 1970 M Date Time Provider Department 07/07/21 CIRA DUNN During your visit today, we recorded the following information about you: Fatemeh Cochran 07/07/2021 12:06 PM Signed Pharmacy faxed requesting the following refill. Pending Prescriptions Disp Refills PREDNISONE 10 MG TABLET 30 tablet 5 Sig: TAKE 1 TABLET BY MOUTH EVERY DAY ADIEL: No Patient last appointment: 09/19/[address] [place] [address] Dunn No future appointment scheduled at this time. Needs blood work done. Patient Phone numbers: [phone] (home) Request is for script(s) to be escript to pharmacy. Fatemeh Cochran Allergies As of Date: 07/07/2021 Noted Allergy Reaction fish products [Other] 10/26/2009 NUT - UNSPECIFIED 10/26/2009 SINGULAIR (MONTEL[place]AST) 09/19/2020 14 - Other: See Comments Comments: Clicking in my ears. BACTRIM (SULFAMETHOXAZOLE) 03/29/2014 4 - Hives Comments: Has tolerated since without reaction. Date Reviewed: 09/19/2020 Reviewed by: Cira Dunn - Fully Assessed Reason for Visit: Refill Request [94] Cmt: prednisone Order(s):predniSONE (DELTASONE) 10 mg tabletTAKE 1 TABLET BY MOUTH EVERY DAYDisp: 30 tabletRfl: 5 Prescriptions as of 07/10/2021 - predniSONE (DELTASONE) 10 mg tablet TAKE 1 TABLET BY MOUTH EVERY DAY - albuterol HFA (PROVENTIL HFA, VENTOLIN HFA) 90 mcg/actuation inhaler Inhale 2 Puffs as instructed every 4 hours as needed. 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] 10/26/2009 01/26/2015 Unspecified disorder of skin and subcutaneous t*11/04/2009 01/26/2015 Umbilical Hernia without Mention of Obstruction*12/01/19 10 Asthma [J45.909] Cellulitis and abscess of unspecified site [L03*11/08/2012 09/12/2017 Perianal mass [K62.89] 12/02/2012 01/26/2015 Condyloma acuminata [A63.0] 12/12/2012 09/12/2017 Tobacco use [Z72.0] 02/18/2015 Unspecified hearing loss [H91.90] 05/09/2015 Gastroesophageal reflux disease [K21.9] 05/31/2017 Tobacco use disorder, continuous [F17.209] 09/19/2020 Prescriptions ordered this encounter Disp Refills Start End PREDNISONE 10 MG TABLET 30 t* 5 07/10/2021 Sig: TAKE 1 TABLET BY MOUTH EVERY DAY Medications Discontinued During This Encounter Prescriptions - predniSONE (DELTASONE) 10 mg tablet (Discontinued) For asthma exacerbation. 4 tabs daily for 2 days, 3 tabs daily for 2 days, 2 tabs daily for 2 days, 1 tab daily for 2 days. Encounter Status:Closed by CIRA DUNN on 07/10/21 [facility] 02-03-2021 [facility] Telephone ([facility]) ANIY MOREJON ([id number]) 1970 M Date Time Provider Department 02/03/21 CIRA DUNN [facility] During your visit today, we recorded the following information about you: Ginger Topete PROSTHETIC AIDE 02/03/2021 3:34 PM Signed Received forms from [facility]/pharmacy regarding COVID-19 vaccine. Entered into historical immunizations. Angelicaalpa Efrem PROSTHETIC AIDE Allergies As of Date: 02/03/2021 Noted Allergy Reaction fish products [Other] 10/26/2009 NUT - UNSPECIFIED 10/26/2009 SINGULAIR (MONTELUKAST) 09/19/2020 14 - Other: See Comments Comments: Clicking in my ears. BACTRIM (SULFAMETHOXAZOLE) 03/29/2014 4 - Hives Comments: Has tolerated since without reaction. Date Reviewed: 09/19/2020 Reviewed by: Cira Dunn - Fully Assessed Reason for Visit: Immunizations [194] Prescriptions as of 02/03/2021 Sig: PREDNISONE 10 MG TABLET Take 1 tablet by mouth once d* PREDNISONE 10 MG TABLET For asthma exacerbation. 4 ta* ALBUTEROL SULFATE HFA 90 MCG/* Inhale 2 Puffs as instructed * Problem List As Of Date 02/03/2021 Noted Resolved Porokeratosis [Q82.8] 10/26/2009 01/26/2015 Unspecified disorder of skin and subcutaneous t*11/04/2009 01/26/2015 Umbilical Hernia without Mention of Obstruction*12/01/19 10 Asthma [J45.909] Cellulitis and abscess of unspecified site [L03*11/08/2012 09/12/2017 Perianal mass [K62.89] 12/02/2012 01/26/2015 Condyloma acuminata [A63.0] 12/12/2012 09/12/2017 Tobacco use [Z72.0] 02/18/2015 Unspecified hearing loss [H91.90] 05/09/2015 Gastroesophageal reflux disease [K21.9] 05/31/2017 Tobacco use disorder, continuous [F17.209] 09/19/2020 Encounter Status:Closed by GINGER TOPETE CMA on 02/03/21 Normal [facility] Vital Signs Date Time Vital Sign Value Performing Clinician Faci lity 03-15-2025 11:29-0400 Body height 175.[address] Jenny Sorenson MD Work Phone: [facility] 03-15-2025 11:29-0400 Body mass index (BMI) [Ratio] 27.9 kg/m2 Dr. Jenny Sorenson MD Work Phone: [facility] 03-15-2025 11:29-0400 Body temperature 97.1 [degF] Dr. Jenny Sorenson MD Work Phone: [facility] 03-15-2025 11:29-0400 Body weight 85.[address] Jenny Sorenson MD Work Phone: [facility] 03-15-2025 11:29-0400 Diastolic blood pressure 72 mm[Hg] Dr. Jenny Sorenson MD Work Phone: [facility] 03-15-2025 11:29-0400 Heart rate 96 /min Dr. Jenny Sorenson MD Work Phone: [facility] 03-15-2025 11:29-0400 Respiratory rate 20 /min Dr. Jenny Sorenson MD Work Phone: [facility] 03-15-2025 11:29-0400 SaO2% (BldA) [Mass fraction] 92 % Dr. Jenny Sorenson MD Work Phone: [facility] 03-15-2025 11:29-0400 Systolic blood pressure 118 mm[Hg] Dr. Jenny Sorenson MD Work Phone: [facility] 10-11-2023 10:23-0500 Body height 175.[address] Jenny Sorenson Work Phone: [facility] 10-11-2023 10:23-0500 Body mass index (BMI) [Ratio] 29.3 kg/m2 Dr. Jenny Sorenson Work Phone: [facility] 10-11-2023 10:23-0500 Body temperature 97 [degF] Dr. Jenny Sorenson Work Phone: [facility] 10-11-2023 10:23-0500 Body weight 90.[address] Jenny Sorenson Work Phone: [facility] 10-11-2023 10:23-0500 Diastolic blood pressure 76 mm[Hg] Dr. Jenny Sorenson Work Phone: [facility] 10-11-2023 10:23-0500 Heart rate 104 /min Dr. Jenny Sorenson Work Phone: [facility] 10-11-2023 10:23-0500 Respiratory rate 16 /min Dr. Jenny Sorenson Work Phone: [facility] 10-11-2023 10:23-0500 SaO2% (BldA) [Mass fraction] 95 % Dr. Jenny Sorenson Work Phone: [facility] 10-11-2023 10:23-0500 Systolic blood pressure 122 mm[Hg] Dr. Jenny Sorenson Work Phone: [facility] 02-15-2022 22:51-0400 Body height 175.26 cm [facility] Work Phone: 02-15-2022 22:51-0400 Body mass index (BMI) [Ratio] 28.5 kg/m2 [facility] Work Phone: 02-15-2022 22:51-0400 Body temperature 97.8 [degF] [facility] Work Phone: 02-15-2022 22:51-0400 Body weight 87.8 kg [facility] Work Phone: 02-15-2022 22:51-0400 Diastolic blood pressure 76 mm[Hg] [facility] Work Phone: 02-15-2022 22:51-0400 Heart rate 95 /min [facility] Work Phone: 02-15-2022 22:51-0400 Respiratory rate 14 /min [facility] Work Phone: 02-15-2022 22:51-0400 SaO2% (BldA) [Mass fraction] 98 % [facility] Work Phone: 02-15-2022 22:51-0400 Systolic blood pressure 137 mm[Hg] [facility] Work Phone: 10-10-2021 00:58-0500 Body height 175.3 cm MARIA D INMAN MD [facility] 10-10-2021 00:58-0500 Body temperature 97.7 [degF] MARIA D INMAN MD [facility] 10-10-2021 00:58-0500 Body weight 90.9 kg MARIA D INMAN MD [facility] 10-10-2021 00:58-0500 Diastolic blood pressure 77 mm[Hg] MARIA D INMAN MD [facility] 10-10-2021 00:58-0500 Heart rate 90 /min MARIA D INMAN MD [facility] 10-10-2021 00:58-0500 Respiratory rate 16 /min MARIA D INMAN MD [facility] 10-10-2021 00:58-0500 Systolic blood pressure 125 mm[Hg] MARIA D INMAN MD [facility] Encounters Encounter Date Encounter Type Care Provider Facility Start: 04-14-2025 End: 04-16-2025 [facility]ulatory [facility] Start: 03-15-2025 End: 03-15-[address] Jenny Sorenson MD -[facility] Work Phone: Start: 03-15-2025 End: 03-15-[address] Jenny Sorenson MD Work Phone: [facility] Work Phone: Start: 10-26-2024 End: 10-26-2024 ambulatory Jenny Sorenson Facility:[facility] Start: 10-16-2024 End: 10-16-2024 Emergency department patient visit Jenny Sorenson Facility:[facility] Start: 09-21-2024 End: 09-21-2024 Emergency department patient visit Jenny Sorenson Facility:[facility] Start: 07-22-2024 End: 07-22-2024 ambulatory Jenny Sorenson Facility:[facility] Start: 07-22-2024 End: 07-22-2024 ambulatory Jenny Sorenson Facility:[facility] Start: 10-11-2023 End: 10-11-[address] Jenny Sorenson Work Phone: [facility] Work Phone: Start: 10-11-2023 End: 10-11-[address] Jenny Sorenson Work Phone: [facility]-Laboratory, Specimen Work Phone: Start: 10-11-2023 End: 10-11-[address] Jenny Sorenson Work Phone: [facility] Work Phone: Start: 02-15-2022 End: 02-16-2022 Emergency department patient visit [facility] Start: 10-09-2021 End: 10-10-2021 Emergency department patient visit MARIA D INMAN MD [facility] Procedures Date Procedure Procedure Detail Performing Clinician Start: 10-11-2023 Coronavirus COVID-[address] Jenny durbin Work Phone: Start: 10-11-2023 RSV RNA Qualitative (PCR) Dr. Jenny Sorenson Work Phone: H/O: cornea recipient Cornea tra nsplant recipient History of tonsillectomy Hx of tonsillect tara Tonsillectomy and adenoidectomy MARIA D INMAN MD Plan of Treatment Date Care Activity Detail Author Start: 03-15-2025 Patient referral [facility] Work Phone: CT Chest [facility] Patient Education ED First- and Second-Degree [place] ... [facility] Work Phone: Patient referral [facility] Work Phone: [facility] Immunizations Immunization Date Immunization Notes Care Provider Fa cility 02-22-2021 Covid (Pfizer) [facility] 02-01-2021 Covid (Pfizer) [facility] 08-08-2020 influenza, injectabl e, quadrivalent, preservative free Dr. Jenny Sorenson Work Phone: [facility] 08-08-2020 influenza, seasonal, injectable [facility] Work Phone: 03-05-2018 tetanus toxoid, redu corrine diphtheria toxoid, and acellular pertussis vaccine, adsorbed [facility] 09-12-2017 influenza, injectabl e, quadrivalent, preservative free Dr. Jenny Sorenson Work Phone: [facility] 09-12-2017 influenza, seasonal, injectable [facility] Work Phone: 11-23-2015 pneumococcal polysaccharide vaccine, 23 valent [facility] Payers Date Payer Category Payer Self-pay [id number] 2024 Unknown [id number] 2022 Private Health Insurance [id number] 2014 Unknown [id number] 1970 Unknown [id number] Private Health Insurance [id number] Unknown [id number] Unknown [id number] Unknown [id number] 2.16.8 [id number] Unknown [id number] 2.16.8 [id number] Unknown [id number] 2.16.8 [id number] Unknown [id number] 2.16.8 [id number] Unknown [id number] 2.16.8 [id number] Unknown [id number] 2.16.8 [id number] Social History Date Type Detail Facility Start: 10-10-2021 Heavy tobacco smoker (finding) [facility] Assigned At [facility] Start: 02-15-2022 End: 10-11-2023 Tobacco smoking status WAIS Unknown if ever smoked [facility] Start: 02-15-2022 Occasional [facility] Start: 02-15-2022 None [facility] Start: 02-15-2022 Alone [facility] Start: 08-29-2020 Cigarettes [facility] Start: 1970 Sex Assigned At Male [facility] Start: 10-16-2024 Tobacco smoking stat us WAIS Ex-smoker (finding) [facility] Mental Status Date Assessment Result Facility 02-15-2022 Cognitive function Level Of Cons ciousness Awake;Alert;Appropriate;Follow s Commands [facility] Work Phone: Hospital Discharge instructions 10-10-2021 Note Date & Type Note Facility 10-10-2021 Hospital Discharg e instructions Patient Education 10/10/2021 01:30:29 CONTUSION, Lower Extremity Contusion:Lower Extremity You have a CONTUSION of your LOWER extremity (leg, knee, ankle, foot, or toes). This causes local pain, swelling and sometimes bruising. There are no broken bones. This injury may take from a few days to a few weeks to heal. Home Care: 1) Keep your leg elevated to reduce pain and swelling. When sleeping, place a pillow under the injured leg. When sitting, support the injured leg so it is level with your waist. This is very important during the first 48 hours. 2) If CRUTCHES have been advised, do not bear full weight on the injured leg until you can do so without pain. You may return to sports when you are able to hop and run on the injured leg without pain. 3) Apply an ice pack (ice cubes in a plastic bag, wrapped in a towel) over the injured area for 20 minutes every 1-2 hours the first day for pain relief. Continue this 3-4 times a day until the pain and swelling goes away. 4) You may use acetaminophen (Tylenol) or ibuprofen (Motrin, Advil) to control pain, unless another pain medicine was prescribed. [ NOTE : If you have chronic liver or kidney disease or ever had a stomach ulcer or GI bleeding, talk with your doctor before using these medicines.] Follow Up with your doctor or this facility if you are not starting to improve within the next THREE days. [NOTE: If X-rays were taken, they will be reviewed by a radiologist. You will be notified of any new findings that may affect your care.] Get Prompt Medical Attention if any of the following occur: -- Pain or swelling increases -- Toes become cold, blue, numb or tingly -- Redness, warmth or drainage from the skin [id number] [employer]. [address] [place] [address]. All rights reserved. This information is not intended as a substitute for professional medical care. Always follow your healthcare professional's instructions. Follow Up Care 10/09/2021 23:45:03 With:DO ANYI HORVATH DO Address: When:3-5 days With:Follow up with primary care provider Address:Unknown When:2-4 days [facility] Evaluation + Plan note Note Date & Type Note Facility Evaluation + Plan note No data available for this section [facility] Evaluation note Note Date & Type Note Facility Evaluation note No assessment information availa ble [facility] Work Phone: Evaluation note Note Date & Type Note Facility Evaluation note Diagnosis Onset Date Acute upper respiratory infection acute Bacterial conjunctivitis of both eyes acute Smoker acute 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 Asthma chronic [facility] Work Phone: Evaluation note Note Date & Type Note Facility Evaluation note Diagnosis Onset Date Resolution Family history of prostate cancer noneactive March 15, 2025 1 1:29am [place] of foot noneactive March 15 11:29am Currently attempting to quit smoking noneactive March 15, 2025 1 1:29am Moderate persistent asthma noneactive March 15, 2025 1 1:29am Encounter for screening for malignant neoplasm of lung noneactive March 15, 2025 1 1:29am [facility] Work Phone: Hospital Discharge instructions Note Date & Type Note Facility Hospital Discharge instructions Ambulatory OrdersPodiatry Location: None SelectedPulmonary Medicine Location: None Selected [facility] Work Phone: Summary Purpose Family History No Family History Records Found Relationship Condition Age at Onset Recorded Date/T kristina father Malignant neoplasm of prostate Unknown mother Asthma Unknown grandmother Malignant neoplasm of skin Unknown grandfather Malignant neoplasm of colon Unknown Relationship Condition Age at Onset Recorded Date/T kristina father Malignant neoplasm of prostate Unknown mother Asthma Unknown grandmother Malignant neoplasm of skin Unknown grandfather Malignant neoplasm of colon Unknown uncle Leukemia Unknown sister Leukemia Unknown sister Diabetes mellitus Unknown Relationship Condition Age at Onset Recorded Date/T kristina father Malignant neoplasm of prostate Unknown mother Asthma Unknown grandmother Malignant neoplasm of skin Unknown grandfather Malignant neoplasm of colon Unknown uncle Leukemia Unknown sister Leukemia Unknown sister Diabetes mellitus Unknown Myocardial infarction Unknown Advance Directives No Advanced Directives Records Found Advance Directive Response Recorded Date/ Time Advance Directives No November 13, 2017 8:09pm Living Will No February 15, 2022 1 1:01pm Power of Floors Buffer No February 15, 2022 11:01pm Advance Directive Response Recorded Date/ Time Advance Directives No November 13, 2017 7:09pm Living Will No February 15, 2022 1 0:01pm Power of Floors Buffer No February 15, 2022 10:01pm Advance Directive Response Recorded Date/ Time Advance Directives No November 13, 2017 8:09pm Chief Complaint and Reason for Visit Chief Complaint BURN Chief Complaint acute - possible pin k eye/severe congestion Reason for Visit Acute upper respirat ory infection Bacterial conjunctivitis of both eyes Smoker Acute exacerbation of COPD with asthma Asthma Chief Complaint Admit Date ISSUES WITH LUNGS / WANTS MAINT INHALER BACK March 15, 2025 11:29am Reason for Visit Admit Date Family history of prostate cancer March 152024 11:29am [place] of foot March 15, 2025 11:29 am Currently attempting to quit smoking Eliceo e 2024 11:29am Moderate persistent asthma March 15 11:29am Encounter for screening for malignant ne oplasm of lung March 15, 2025 11:29am Additional Source Comments (unrecognized sect ion and content) No Status Records FoundNo Status Records FoundNo Status Records FoundNo Status Records Found INFORMATION SOURCE (unrecogn ized section and content) DATE CREATED AUTHOR 11/21/2021 [facility] DATE CREATED AUTHOR AUTHOR'S ORGANIZ ATION 01/18/2022 [facility] ([place]) DATE CREATED AUTHOR AUTHOR'S ORGANIZ ATION 03/16/2025 [facility] DATE CREATED AUTHOR AUTHOR'S ORGANIZ ATION 04/18/2025 [employer] Goals (unrecognized section and content) Goals may be documented in a n alternate section Care Teams (unrecognized sec tion and content) Team Status: Active Member Role Status Dates No Primary Care Physician Family Provider Active Dr. Jenny Sorenson MD Primary Care Provider Active Team Status: Inactive Member Role Status Dates Dr. Jenny Sorenson MD [facility] Provider Active RUBIN Melgar Attending Provider Active Team Status: Inactive Member Role Status Dates Dr. Jenny Sorenson MD Primary Care Provider Active RUBIN Melgar Attending Provider Active Team Status: Inactive Member Role Status Dates Dr. Jenny Sorenson MD Primary Care Provider Active Start: March 15, 2025 End: March 15, 2025 Dr. Jenny Sorenson MD Attending Provider Active Start: March 15, 2025 End: March 15, 2025 Dr. Jenny Sorenson MD Referring Provider Active Start: March 15, 2025 End: March 15, 2025 FOR RECORDS PERTAINING TO PATIENTS WHO ARE OR HAVE BEEN ENROLLED IN A CHEMICAL DEPENDENCY/SUBSTANCEABUSE PROGRAM, SOME INFORMATION MAY BE OMITTED. This clinical summary was aggregated from multiple sources. Caution should be exercised in using it in the provision of clinical care. This summary normalizes information from multiple sources, and as a consequence, information in this document may materially change the coding, format and clinical context of patient data. In addition, data may be omitted in some cases. CLINICAL DECISIONS SHOULD BE BASED ON THE PRIMARY CLINICAL RECORDS. [facility] [employer] [facility]. provides no warranty or guarantee of the accuracy or completeness of information in this document.
--- NOTE | 2025-09-17 23:06 | EDS_ITS ---
HPI History of Present Illness Chief Complaint: Upper Extremity Injury Narrative Narrative: Chief complaint and HPI: 55-year-old gentleman with past medical history of asthma presents for evaluation of left wrist and forearm pain. Patient states he works at [employer] and fell in the parking lot. He endorses pain in the wrist and forearm. Denies injury elsewhere. Review of systems: See HPI Medications: As listed on the chart Allergies: As listed on the chart PFSH: Per chart Vital signs: As listed on the chart. Reviewed. Physical exam: Gen: Alert, NAD Head: Normocephalic, atraumatic Eyes: No sclera icterus, conjunctiva clear ENT: Moist mucous membranes CV: Regular rate Resp: Nonlabored respirations Musc: Full ROM of all the extremities including the left upper extremity, mild tenderness to palpation of the mid forearm and wrist otherwise arm is atraumatic and nontender, no deformity, no external signs of trauma such as lacerations or ecchymosis, radial/ulnar pulse +2 bilaterally, compartments soft, sensation intact, good capillary refill Skin: Warm, dry Psych: Cooperative, appropriate mood and affect [facility] Medical History COVID C. difficile diarrhea Epidermoid cyst of skin of cheek Smoker Asthma History of MRSA infection Esophageal reflux Home Medications ?Medication ?Instructions ?Recorded ?Last Taken ?Type nicotine (polacrilex) 4 mg buccal 4 mg buccal Q8H PRN nicotine 07/22/24 Unknown Rx lozenge cravings #24 ea nicotine 7 mg/24 hr daily 1 patch transdermal Q24H #14 ea 10/26/24 Unknown Rx transdermal patch salicylic acid 40 % topical patch 1 applic topical Q48 H #6 ea 10/26/24 Unknown Rx ([place]umb[place] Remover) ipratropium 0.5 mg-albuterol 3 mg 3 ml inhalation Q6H PRN shortness 03/15/25 Unknown Rx (2.5 mg base)/3 mL nebulization of breath or wheezing #180 mL soln prednisone 10 mg tablet See Rx Instructions PO QDAY #31 03/15/25 Unknown Rx tabs budesonide 160 mcg-glycopyr 9 2 inh PO BID #10.7 ea Unknown Rx mcg-formot 4.8 mcg/actuation HFA inhaler (Mitziztri Aerosphere) Ventolin HFA 90 mcg/actuation 2 puff inhalation Q6H PA N 09/06/25 Unknown Rx aerosol inhaler (albuterol sulfate) shortness of breat h or wheezing #8 grams Allergy/AdvReac Type Severity Reaction Status Date / Time Fish Containing Products Allergy Severe Anaphylaxis Verified 09/17/25 22:51 nut - unspecified (nuts) Allergy Severe Anaphylaxis Verified 09/17/25 22:51 shellfish derived Allergy Severe Anaphylaxis Verified 09/17/25 22:51 sulfamethoxazole (From Allergy Mild Rash Verified 09/17/25 22:51 Bactrim) trimethoprim (From Bactrim) Allergy Mild Rash Verified 09/17/25 22:51 Family History Father Prostate cancer Mother Asthma Grandmother Skin cancer Grandfather Colon cancer Uncle Leukemia Sister Leukemia Sister Diabetes Myocardial infarction Surgical History S/P lens implant H/O removal of cyst H/O adenoidectomy Hx of tonsillectomy Social History household members: none housing: house current occupational status: employed current occupation: [employer] Smoking Status: Current every day smoker tobacco type: cigarettes Tobacco: How many years used: 40 quit status: considering quitting alcohol intake: current alcohol intake frequency: holidays/special occasions only details: Socially/Holidays Only substance use type: marijuana what type of physical activity do you participate in: walking do you feel safe at home: Yes EXAM Physical Exam Const Vital Signs: 09/17/25 22:49 Temperature 98.0 F Temperature Source Temporal Pulse Rate 86 Respiratory Rate 17 Blood Pressure 141/94 H Blood Pressure Mean 109 Pulse Ox 100 Oxygen Delivery Method Room Air MDM MDM MDM Narrative Medical decision making narrative: 55-year-old gentleman with past medical history of asthma presents for evaluation of left wrist and forearm pain. Patient states he works at [employer] and fell in the parking lot. He endorses pain in the wrist and forearm. Denies injury elsewhere. Differential diagnosis includes but is not limited to contusion, sprain, fracture. X-ray of the wrist and forearm obtained. Patient drove therefore no narcotics given. Patient given the option of Tylenol, Motrin, IM Toradol. Elected for IM Toradol. X-ray of the wrist and forearm was personally viewed interpreted by me, ED physician. No fracture or dislocation. Radiology in agreement. Patient's pain is likely secondary to contusion. Follow-up with Worker's Compensation. He confirmed understand the plan. Patient about discharge home. Tylenol Motrin as needed for pain at home. Ice for swelling if it develops. Impression: 1. Left wrist contusion 2. Left forearm contusion 3. Fall at work Discharge Plan Triage Chief Complaint: Upper Extremity Injury ED Provider: Palomo Serna Dx/Rx/DC Orders Prescriptions: No Action nicotine (polacrilex) 4 mg lozenge 4 mg buccal Q8H PRN (Reason: nicotine cravings) Qty: 24 0RF [place] Remover 40 % adhesive patch,medicated 1 applic topical Q48H Qty: 6 0RF nicotine 7 mg/24 hr patch 24 hour 1 patch transdermal Q24H Qty: 14 0RF prednisone 10 mg tablet See Rx Instructions PO QDAY Qty: 31 0RF Rx Instructions: orally daily; take 40mg daily for 3 days, then 30mg daily for 3 days, then 20mg daily for 3 days, 10mg daily for 3 days then 5mg daily for 2 days and stop ipratropium-albuterol 0.5 mg-3 mg(2.5 mg base)/3 mL solution for nebulization 3 ml inhalation Q6H PRN (Reason: shortness of breath or wheezing) Qty: 180 2RF Breztri Aerosphere 160-9-4.8 mcg/actuation HFA aerosol inhaler 2 inh PO BID Qty: 10.7 2RF albuterol sulfate [Ventolin HFA] 90 mcg/actuation HFA aerosol inhaler 2 puff inhalation Q6H PRN (Reason: shortness of breath or wheezing) Qty: 8 0RF Primary Care Provider: Cintia Sorenson Referrals: Cintia Sorenson MD [Primary Care Provider, Internal Medicine] Print Language: Cymraes
[2025-09-17 23:45] VITALS: BP 125/77; PULSE 60; RESP 18; TEMP 37.2; O2SAT 98
== END 2025-09-18 00:04 | disposition home or self-care (01) ==
PROVIDERS: Emergency Provider Surgery; PCP Internal Medicine; Visit Provider Surgery
DX: S50.12XA Contusion of left forearm, initial encounter (principal); S60.212A Contusion of left wrist, initial encounter; W19.XXXA Unspecified fall, initial encounter; Y92.481 Parking lot as the place of occurrence of the external cause; Y99.0 Civilian activity done for income or pay; J45.909 Unspecified asthma, uncomplicated; F17.210 Nicotine dependence, cigarettes, uncomplicated; Z79.51 Long term (current) use of inhaled steroids
CPT/HCPCS: 73090; 73110; 96372; 99282